=== PATIENT | female | born 1970 | race Caucasian/White ===

== ENCOUNTER 2024-02-04 14:22 | Outpatient (AMB) | payer BC, SELFPAY ==
--- NOTE | 2024-02-04 14:28 | MHC.PC.OV ---
Vital Signs 02/04/24 14:37 Height 5 ft 4.57 in Weight 167 lb BMI 28.2 BP 110/58 L Blood Pressure Location Rt brachial Position Sitting Pulse 100 Pulse Source Pulse Oximeter Pulse Oximetry (%) 95 Oxygen Delivery Method Room Air Intake Visit Reasons: tiffany from [facility] Intake Note: New patient visit [employer] Consultant Required: No Allergies No Known Allergies Allergy (Verified 01/19/24 13:40) Tobacco use date assessed: 02/04/24 Dental Screening Dental Screen Date: 02/04/24 Did you have a dental visit in the last 12 months?: Yes Did you have a dental problem in the last 6 months where you did not have access to dental care?: No Was dental information given to patient?: Patient has dentist HPI tiffany from [facility] HPI Details Patient is a 53-year-old female who presents today to critical access hospital care. She is transferring from [facility]. She has a significant past medical history of hypothyroidism s/p thyroidectomy 2001 for multifocal papillary carcinoma and [facility], rheumatoid factor positive and osteoarthritis CV: Blood pressure today in the office is 110/58. Endo: On levothyroxine 175 mcg. Last TSH was WNL. Followed by endo. Last checked in October. Rheum: has OA and RA and tried arthritis treatment and felt like it was not a thorough exam. She started with joint pains 2 years ago and states it is mostly in fingers (right thumb and middle finger trigger often), wrist pain and knee pain. No obvious joint swelling or erythema. This was a gradual onset, no immunizations, illness or travel exposure prior. Her second cousin and maternal aunt has RA. Psych: phq9 is a 4. denies any depression or anxiety. Derm: sees [facility] Bowl Attendant: She is scheduled for a total hysterectomy in [place]. Her uterus is thickened and right ovary large cyst/polyp per pt but not cancerous. Mammogram: 06/29/2023 Colonoscopy: overdue Bone density: overdue [facility] Medical History (Updated 02/04/24 @ 15:08 by Esther Elise PA-C) Basal cell carcinoma Right knee pain Iron deficiency anemia Hypothyroid Skin cancer Surgical History (Updated 01/19/24 @ 13:35 by Tracey Sagastume MA) History of thyroidectomy S/P skin biopsy Family History (Updated 02/04/24 @ 14:43 by Soco Hylton CMA) Mother Hypertension Father Hypertension Maternal Grandmother Cancer Paternal Grandfather Cancer Sister Multiple sclerosis Social History (Updated 01/19/24 @ 13:42 by Tracey Sagastume MA) Housing: House Alcohol intake: current Alcohol intake frequency: a few times a week Patient Tobacco Use Status: Former Tobacco user Tobacco use type: Cigarette Years Smoked: 30 e-Cigarette/Vaping Use: Former Use Frequency of e-Cigarette/Vaping Use: 1/4 cartridge a day service: No Current occupational status: employed 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 1. Little interest or pleasure in doing things: nearly every day 2. Feeling down, depressed, or hopeless: not at all 3. Trouble falling or staying asleep, or sleeping too much: not at all 4. Feeling tired or having little energy: several days 5. Poor appetite or overeating: not at all 6. Feeling bad about yourself - or that you are a failure or have let yourself or your family down: not at all 7. Trouble concentrating on things, such as reading the newspaper or watching television: not at all 8. Moving or speaking so slowly that other people could have noticed. Or the opposite - being so fidgety or restless that you have been moving around a lot more than usual: not at all 9. Thoughts that you would be better off or of hurting yourself in some way: not at all Total score: 4 Depression Screening Interpretation: Negative Depression Screening Done: Yes 32953 - PHQ-9 Billing: Yes Source: Developed by Drs. Mauro De La Rosa, Gabrielle Andrade, Osmar Kurtz and colleagues, with an educational savannah from [employer]. Thrive Questionnaire Date Thrive assessed: 02/04/24 I am a: Patient What is your living situation today?: I have a steady place to live Within the past 12 months, did the food you bought not last and you didn't have the money to get more?: Never true Within the past 12 months, did you worry whether your food would run out before you got money to buy more?: Never true Do you have trouble paying for medicines?: No Do you have trouble getting transportation to medical appointments?: No Do you have trouble paying your heating and electricity bill?: No Do you have trouble taking care of your child, family member or friend?: No Do you have trouble with day-to-day activities such as bathing, preparing meals, shopping, managing finances, etc.?: No Are you currently unemployed and looking for a job?: No Are you interested in more education?: No Please select the resources that you would like help with: None Currently or been in a relationship where the following occur: No concerns reported THRIVE Score: 0 AUDIT C Alcohol Use Questionnaire (AUDIT-C) 1. How often do you have a drink containing alcohol?: 2-3 times a week 2. How many drinks containing alcohol do you have on a typical day when you are drinking?: 1 or 2 3. How often do you have six or more drinks on one occasion?: Less than monthly Total Score: 4 YOLIS-7 AMB Questionnaire YOLIS-7 Date YOLIS - 7 assessed: 02/04/24 Feeling nervous, anxious, or on edge: 0 = Not at all Not being able to stop or control worryin = Not at all Worrying too much about different things: 0 = Not at all Trouble relaxin = Not at all Being so restless that it is hard to sit still: 0 = Not at all Becoming easily annoyed or irritable: 0 = Not at all Feeling afraid as if something awful might happen: 0 = Not at all Total YOLIS-7 score (0-4 normal; 5-9 mild; 10-14 moderate; 15-21 severe): 0 Source: Developed by Drs. Mauro De La Rosa, Gabrielle Andrade, Osmar Kurtz and colleagues, with an educational savannah from [employer]. YOLIS-7 Assessment Billing YOLIS-7 Assessment Tool: YOLIS-7 Assessment 97685 Physical exam (Primary Care) Vital Signs: Last Vital Signs Pulse 100 02/04/24 14:37 BP 110/58 L 02/04/24 14:37 Pulse Ox 95 02/04/24 14:37 Oxygen Delivery Method Room Air 02/04/24 14:37 BMI result Body Mass Index 28.2 Tobacco/Smoking Status: Tobacco use Status Tobacco use date assessed 02/04/24 02/04/24 14:32 Patient Tobacco Use Status Former Tobacco user 02/04/24 14:32 Tobacco use type Cigarette 02/04/24 14:32 e-Cigarette/Vaping Use Former Use 02/04/24 14:32 PHQ-9: PHQ-9 Score PHQ-9: Total score 4 02/04/24 14:42 Depression Screening Interpretation: Negative Thrive Assessment: Date of Thrive Assessment Date Thrive assessed 02/04/24 02/04/24 14:32 Currently or been in a relationship where the following occur: No concerns reported Const Orientation/consciousness: patient oriented x3 HENMT Ears: hearing grossly normal bilaterally Neck Thyroid: Thyroid normal Lymphatic: no lymphadenopathy noted Resp Auscultation: clear to auscultation bilaterally Cardio Rate: regular rate Rhythm: regular rhythm Heart sounds: S1 normal heart sound present and S2 normal heart sound present GI Inspection: Yes normal to inspection Palpation (GI): Soft to palpation and Other GI palpation findings present (nontender, no cva tenderness) Auscultation: normoactive bowel sounds Rectal Exam - Female: deferred Skin General skin exam: no rashes or lesions noted Neuro General: patient oriented x3, gait normal and no focal motor deficits Assessment and Plan Assessment & Plan (1) Basal cell carcinoma: Code(s): C44.91 - Basal cell carcinoma of skin, unspecified Qualifiers: Basal cell carcinoma location: unspecified site Qualified Code(s): C44.91 - Basal cell carcinoma of skin, unspecified Plan: follows with [facility] (2) Hypothyroidism associated with surgical procedure: Code(s): E89.0 - Postprocedural hypothyroidism Plan: follows endo (3) Polyarthralgia: Code(s): M25.50 - Pain in unspecified joint Plan: referral to rheum labs ordered (4) Rheumatoid factor positive: Code(s): R76.8 - Other specified abnormal immunological findings in serum Plan: will recheck Plan Bone density ordered. Colonoscopy ordered. Orders: Orders XR DEXA axial skeleton Today Z78.0 - Asymptomatic menopausal state Comprehensive [place]. Panel Fast Today C44.91 - Basal cell carcinoma of skin, unspecified, E89.0 - Postprocedural hypothyroidism, M25.50 - Pain in unspecified joint, R76.8 - Other specified abnormal immunological findings in serum Lipid Panel Today C44.91 - Basal cell carcinoma of skin, unspecified, E89.0 - Postprocedural hypothyroidism, M25.50 - Pain in unspecified joint, R76.8 - Other specified abnormal immunological findings in serum Rheumatoid Factor Today C44.91 - Basal cell carcinoma of skin, unspecified, E89.0 - Postprocedural hypothyroidism, M25.50 - Pain in unspecified joint, R76.8 - Other specified abnormal immunological findings in serum C Reactive Protein Today C44.91 - Basal cell carcinoma of skin, unspecified, E89.0 - Postprocedural hypothyroidism, M25.50 - Pain in unspecified joint, R76.8 - Other specified abnormal immunological findings in serum Erythrocyte Sedimentation Rate Today C44.91 - Basal cell carcinoma of skin, unspecified, E89.0 - Postprocedural hypothyroidism, M25.50 - Pain in unspecified joint, R76.8 - Other specified abnormal immunological findings in serum Complete Blood Count Auto Diff Today C44.91 - Basal cell carcinoma of skin, unspecified, E89.0 - Postprocedural hypothyroidism, M25.50 - Pain in unspecified joint, R76.8 - Other specified abnormal immunological findings in serum Referrals Open Access Screening Colonoscopy Referral Z12.11 - Encounter for screening for malignant neoplasm of colon Rheumatology Referral M25.50 - Pain in unspecified joint, R76.8 - Other specified abnormal immunological findings in serum Coding Level of Care Code New Pt Level 4 (74678) Complex EM visit Add On G2211 Diagnoses Basal cell carcinoma (BCC), unspecified site C44.91 Basal cell carcinoma location: unspecified site Hypothyroidism associated with surgical procedure E89.0 Polyarthralgia M25.50 Rheumatoid factor positive R76.8 Additional Codes YOLIS-7 Assessment Billing - YOLIS-7 Assessment Tool: YOLIS-7 Assessment [id number] ([id number])
[2024-02-04 14:37] VITALS: BP 110/58; PULSE 100; O2SAT 95; BMI 28.2
== END 2024-02-04 15:14 | disposition home or self-care (01) ==
PROVIDERS: Visit Provider Physician Assistant
DX: C44.91 Basal cell carcinoma of skin, unspecified (principal); E89.0 Postprocedural hypothyroidism; M25.50 Pain in unspecified joint; R76.8 Other specified abnormal immunological findings in serum
CPT/HCPCS: 99204

== ENCOUNTER 2024-02-12 07:35 | Outpatient (REF) | payer BC, SELFPAY ==
[2024-02-12 11:20] LABS: MANUAL DIFF FLAG NO
[2024-02-12 11:38] LABS: Basophils Percent Auto 0.5 % (0-2); Eosinophils Absolute Auto 0.2 X10*3/uL (0.0-0.4); Eosinophils Percent Auto 2.9 % (0-4); Hematocrit 47.8 % (37.0-47.0); Hemoglobin 15.8 g/dl (12.0-16.0); Imm Gran Abs Auto 0.01 X10*3/uL (0.00-0.03); Imm Gran Pct Auto 0.2 % (0.0-0.4); Lymphocytes Absolute Auto 2.5 X10*3/uL (1.2-4.9); Lymphocytes Percent Auto 40.8 % (20-40); Mean Corpuscular HGB Conc 33.1 g/dl (31.0-35.0); Mean Corpuscular Hemoglobin 29.5 pg (27.0-33.0); Mean Corpuscular Volume 89.3 fL (80.0-98.0); Mean Platelet Volume 10.9 fL (9.4-12.3); Monocytes Absolute Auto 0.5 X10*3/uL (0.1-1.2); Monocytes Percent Auto 8.3 % (2-11); Neutrophils Absolute Auto 2.9 x10*3/uL (2.0-8.3); Neutrophils Percent Auto 47.3 % (45-73); Platelet Count 251 X10*3/uL (160-400); Red Blood Count 5.35 X10*6/uL (4.20-5.50); White Blood Count 6.1 X10*3/uL (4.8-10.8)
[2024-02-12 11:48] LABS: Rheumatoid Factor 20.8 IU/mL (<15.0)
[2024-02-12 11:57] LABS: Alanine Aminotransferase 30 U/L (0-31); Alkaline Phosphatase 63 U/L (39-117); Anion Gap 11 (12-20); Aspartate Amino Transferase 27 U/L (5-31); Bilirubin Total 0.4 mg/dL (0.0-1.0); Blood Urea Nitrogen 11 mg/dL (9-16); C Reactive Protein 0.24 mg/dL (< or = 0.50); Calcium 9.1 mg/dL (8.4-10.2); Carbon Dioxide 24 mmol/L (22-29); Chloride 109 mmol/L (96-108); Cholesterol 169 mg/dL (<200); Estimated Glomerular Filt Rate > 60; Glucose Fasting 92 mg/dL (60-99); HDL Cholesterol 33 mg/dL (>40); LDL Cholesterol Calculated 100 mg/dL (<100); Potassium 4.3 mmol/L (3.3-5.1); Sodium 140 mmol/L (135-145); Total Protein 7.4 g/dL (6.5-8.0); Triglycerides 184 mg/dL (<150)
[2024-02-12 12:19] LABS: Erythrocyte Sedimentation Rate 12 MM/HR (0-20)
== END 2024-02-12 07:36 | disposition home or self-care (01) ==
LOC: HO.WFDLDS 07:35
PROVIDERS: Visit Provider Physician Assistant
DX: C44.91 Basal cell carcinoma of skin, unspecified (principal); E89.0 Postprocedural hypothyroidism; M25.50 Pain in unspecified joint; R76.8 Other specified abnormal immunological findings in serum
CPT/HCPCS: 36415; 80053; 80061; 85025; 85652; 86140; 86431

== ENCOUNTER 2024-03-03 07:54 | Outpatient (REF) | payer BC, SELFPAY ==
--- NOTE | ~2024-03-03 | MM_ITS ---
EXAMINATION: BONE DENSITOMETRY CLINICAL INDICATION: Asymptomatic menopausal state. COMPARISON: This is the patient's baseline examination. TECHNIQUE: Using a Cisco DXA System (software version: 13.1) manufactured by [employer], dual-energy x-ray absorptiometry was performed of the lumbar spine and left hip. The images are of good technical quality. Summary results are attached. FINDINGS: LEFT FEMUR, NECK: BMD 0.880 g/cm2, Z-score -0.4, T-score -1.1, osteopenia. LEFT FEMUR, TOTAL: BMD 0.958 g/cm2, Z-score 0.0, T-score -0.4, normal. AP SPINE L1-L4: BMD 1.138 g/cm2, Z-score 0.0, T-score -0.3, normal. IDENTIFIED RISK FACTORS: Menopause, low calcium intake, current smoker. HISTORY OF FRACTURE: None listed. MEDICATIONS: None listed. MM/XR DEXA axial skeleton IMPRESSION: 1. DIAGNOSIS: Osteopenia based on the lowest T-score value of -1.1 in the femoral neck applying World Health Organization criteria. 2. 10-YEAR FRACTURE RISK PREDICTION, FRAX: Major osteoporotic fracture (clinical spine, forearm, hip or shoulder) 4.8%. Hip fracture 0.5%. 3. Treatment Recommendations: NOF guidelines recommend consideration for treatment in postmenopausal women and men age 50 and older presenting with the following: -A hip or vertebral (clinical or morphometric) fracture. -T-score less than or equal to -2.5 at the femoral neck or spine after appropriate evaluation to exclude secondary causes. -Low bone mass at the hip or spine and a 10-year fracture probability by FRAX of greater than or equal to 3% for hip fracture or greater than or equal to 20% for major osteoporotic fracture based on the [place] adapted WHO algorithm. 4. Other Recommendations: All treatment decisions require clinical judgment and consideration of individual patient factors, including patient preferences, comorbidities, previous drug use, risk factors not captured in the FRAX model (e.g. frailty, falls, vitamin D deficiency, increased bone turnover, interval significant decline in bone density) and possible under or overestimation of fracture risk by FRAX. Additional medical evaluation for secondary cause of low bone mineral density may be appropriate. FUTURE SCAN RECOMMENDATION: People with diagnosed cases of osteoporosis or at high risk for fracture should have regular bone mineral density tests. For patients eligible for Medicare, routine testing is allowed once every 2 years. The testing frequency can be increased to one year for patients who have rapidly progressing disease, those who are receiving or discontinuing medical therapy to restore bone mass, or have additional risk factors. Electronically signed by: Giorgi Bowles MD 03/04/2024 09:33 AM EDT
== END 2024-03-03 07:55 | disposition home or self-care (01) ==
LOC: HO.MAMMO 07:54
PROVIDERS: PCP Internal Medicine; Visit Provider Physician Assistant
DX: Z13.820 Encounter for screening for osteoporosis (principal); Z78.0 Asymptomatic menopausal state
CPT/HCPCS: 77080

== ENCOUNTER 2024-04-25 11:59 | Outpatient (REF) | payer BC, SELFPAY ==
[2024-04-25 15:46] LABS: Anion Gap 15 (12-20); Blood Urea Nitrogen 18 mg/dL (9-16); Calcium 9.8 mg/dL (8.4-10.2); Carbon Dioxide 24 mmol/L (22-29); Chloride 105 mmol/L (96-108); Estimated Glomerular Filt Rate > 60; Glucose Random 118 mg/dL (60-115); Potassium 3.8 mmol/L (3.3-5.1); Sodium 140 mmol/L (135-145)
== END 2024-04-25 12:00 | disposition home or self-care (01) ==
LOC: HO.WFDLDS 11:59
PROVIDERS: Visit Provider Internal Medicine
DX: I42.8 Other cardiomyopathies (principal)
CPT/HCPCS: 36415; 80048

== ENCOUNTER 2024-05-24 11:02 | Outpatient (AMB) | payer BC, SELFPAY ==
--- OUTSIDE RECORDS SUMMARY | 2024-05-24 11:05 | XMS_ITS | Data Portability ---
Author Organization [place] - [facility],, ROSLYN BRANDON MD Address [address] [place] [phone] Care Team Providers Care Biotechnician Name Role Phone ElaFUNK JOHN Primary Care Provider [phone] Assessment No assessment recorded. Plan of Treatment Reminders Order Date Submit Date Provider Last Modified By Organization Details Last Modified Time Details Appointments None recorded. Lab cytology report, thin prep, smear or scraping, cervical or vaginal 2023 024 [facility], [address] [place], [address], 4 12:07:00 estradiol, serum 2023 024 [employer] [facility], [address] [place], [address], 4 10:06:38 FSH (follicle- stimulatin g hormone), serum 2023 024 [facility], [address] [place], [address], 4 10:06:40 hemoglobin , gastrointe stinal, stool 2023 024 [email or web address] 1 In-Office Order, Internal Use Only DO Not Attach Compendium DO Not Attach Compendium, Do Not Delete/merge, [id number] 4 13:33:18 ca 125, serum 2023 024 [facility], [address] [place], [address], 4 08:09:06 estradiol, serum 2023 024 [facility], [address] [place], [address], 4 08:09:06 anti-mulle melodie hormone (amh), serum 2023 024 [facility], [address] [place], [address], 4 08:09:07 inhibin A + B panel, serum or plasma 2023 024 [facility], [address] [place], [address], 4 16:06:44 biopsy, endometria l 2023 024 [facility], [address] [place], [address], 4 07:34:58 test, urine 2023 024 [email or web address] 1 In-Office Order, Internal Use Only DO Not Attach Compendium DO Not Attach Compendium, Do Not Delete/merge, [id number] 4 09:56:11 Referral gynecologi c surgery referral - 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 Imaging MAMMO, screening, digital, bilateral - Breast Aspiration and/or Biopsy if needed 2023 024 sharad [facility], [address], [address], [place], [address], 14:20:33 MRI, pelvis, w/ contrast - hypoechoic enlargemen t of right ovary, question possible fibroma, also has post menopausal bleeding and thickened endometriu m [email or web address] [facility] ([facility]), [address], [place], [address], 07:35:14 Medication Orders None recorded. Patient TargetsNo targets recorded. Patient Instructions Encounter Date Encounter Id Patient Instructions Last Modified By Organization Details Last Modified Time 09/07/2023 [id number] learning about healthy weight Not available 09/07/2023 13:13:23 vaginal bleeding after menopause: care instructions Not available 09/07/2023 13:13:40 She is here as a new patient for routine annual. 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 She had her last menses more than 2 years ago, however last week she began moderately red vaginal bleeding that lasted 7 days, now resolved. 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 with Dr. Pham. On exam: cervix nearly flush with apex and lateral jerome, appears to have had cone prior Pap taken, she is advised ot get annual pap due to prior history of HSIL, this was explained in detail. Check FSH and estradiol to see if this was The Last Hurrah or abnormal, PMB. If in menopause range will need sono and emb. She has developed increased urinary stress incontinence over the past year, we discussed possible addtion of vaginal estradiol, she will do a telehealth for this if she is interested. She appears to be doing well. Monthly self breast exam was taught, and stressed, and is advised to call if she discovers any new mass in the breast. Not available 09/07/2023 13:53:01 10/13/2023 [id number] vaginal bleeding after menopause: care instructions Not available 10/13/2023 08:23:31 She is here for discussion of her recent pelvic sonogram. She was here as a new patient last month, and had PMB. Sono shows a 1.1 cm endometrial thickness, and also a 4.2 cm, hypoechoic enlargement of the right ovary. The two may be related, as she may have an estrogen secreting ovarian tumor, such as a granulosa cell tumor, or it could be a benign fibroma. On 09/08/23 her FSH was 41.7, and serum estradiol 63.1. Note from 09/07/23: She is here as a new patient for routine annual. 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 She had her last menses more than 2 years ago, however last week she began moderately red vaginal bleeding that lasted 7 days, now resolved. 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 with Dr. Pham. On exam: cervix nearly flush with apex and lateral jerome, appears to have had cone prior Pap taken, she is advised ot get annual pap due to prior history of HSIL, this was explained in detail. Check FSH and estradiol to see if this was The Last Hurrah or abnormal, PMB. If in menopause range will need sono and emb. She has developed increased urinary stress incontinence over the past year, we discussed possible addtion of vaginal estradiol, she will do a telehealth for this if she is interested. __ The radiologist recommended a contrast enhanced MRI of the pelvis, this is ordered. We will have her return for emb to assess the endometrium. Will check estradiol to see if trending upward, and also check serum inhibin and and b, CA 125, and AMH. We had a long discussion about all this. It could be the two are unrelated, or the ovary could be making a hormone that is causing the endometrial thickening. She may need surgery for removal of the ovary but first we should get more information about the endometrium and the ovary. She agrees to return for emb and to do the MRI then we will reassess and discuss if surgery appears necessary and if so should she see a regular pet crematory worker, or a pet crematory worker onc. Face to face discussion 30 minutes laura Not available 10/13/2023 08:39:44 10/20/2023 [id number] postmenopausal bleeding information [email or web address] Not available 10/20/2023 09:54:56 endometrial biopsy: about this test [email or web address] Not available 10/20/2023 09:54:57 She is here for emb for pmb. Serum estradiol was 63 then 60 a month apart, so not rising, but is elevated when compared to the FSH which is in the menopausal range. This may be edward-menopause, or could be related to the ovarian enlargement. AMH < 0.03. CA 125 was 13, FSH was 41.7. She is already ordered to have a pelvic MRI. Note from 10/13/23: She is here for discussion of her recent pelvic sonogram. She was here as a new patient last month, and had PMB. Sono shows a 1.1 cm endometrial thickness, and also a 4.2 cm, hypoechoic enlargement of the right ovary. The two may be related, as she may have an estrogen secreting ovarian tumor, such as a granulosa cell tumor, or it could be a benign fibroma. On 09/08/23 her FSH was 41.7, and serum estradiol 63.1. Note from 09/07/23: She is here as a new patient for routine annual. 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 She had her last menses more than 2 years ago, however last week she began moderately red vaginal bleeding that lasted 7 days, now resolved. 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 with Dr. Pham. On exam: cervix nearly flush with apex and lateral jerome, appears to have had cone prior Pap taken, she is advised ot get annual pap due to prior history of HSIL, this was explained in detail. Check FSH and estradiol to see if this was The Last Hurrah or abnormal, PMB. If in menopause range will need sono and emb. She has developed increased urinary stress incontinence over the past year, we discussed possible addtion of vaginal estradiol, she will do a telehealth for this if she is interested. She tolerated emb well, await results. When MRI results are back, then we can decide how best to address the enlarged ovary. We may decide to repeat sono in 3 months if stable. 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 This correlates with the pelvic sonogram and pelvic exam. She has noted a year of worsening low back ache and dyspareunia, she has bene unable to have intercourse for 10 to 12 months due to the dyspareunia. It is deep dyspareunia, not vaginal. She had noted PMB, emb removed portions of a benign polyp. She also notes increased urinary stress incontinence over the past year. Note from 09/07/23: She is here as a new patient for routine annual. 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 She had her last menses more than 2 years ago, however last week she began moderately red vaginal bleeding that lasted 7 days, now resolved. 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 with Dr. Pham. On exam: cervix nearly flush with apex and lateral jerome, appears to have had cone prior Pap taken, she is advised ot get annual pap due to prior history of HSIL, this was explained in detail. Check FSH and estradiol to see if this was The Last Hurrah or abnormal, PMB. If in menopause range will need sono and emb. She has developed increased urinary stress incontinence over the past year, we discussed possible addtion of vaginal estradiol, she will do a telehealth for this if she is interested. We discussed all this.We discussed the likely fibroma/Kenroy tumor diagnosis of the ovarian mass, but cannot rule out pre-malignant or malignant entirely until after surgery. After discussion she elects to be referred to surgery. We discussed possible right oophorectomy with or without salpingectomy, or BSO, and possible hysterectomy. After discussion of risks of surgery including , hemorrhage, infection, etc, she prefers to have hysterectomy with BSO, and she would like to see if she can become sexually active again, if the pain resolves. We discussed the difference in surgery and recovery with all these options. She may need a work up for her stress incontinence prior, she understands. She will discuss all these options with her new surgeon. 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 REACT EDU CELLU LAR HURTADO ES AND/O R REPAI R ARE PRESE NT. Not Available [address], [address], 09/11/2023 12:06:59 09/07/19 24 09/11/2023 IGP, RFX APTIM A HPV ASCU specimen adequacy: Commen t Satis facto ry for evalu ation . Endoc ervic al and/o r squam ous metap lasti c cells (endo cervi tha compo nent) are prese nt. Not Available [address], [address], 09/11/2023 12:06:59 09/07/19 24 09/11/2023 IGP, RFX APTIM A HPV ASCU clinician provided ICD10: Zaira t Z01.4 19 N95.0 Not Available [address], [address], 09/11/2023 12:06:59 09/07/19 24 09/11/2023 IGP, RFX APTIM A HPV ASCU performed by: Zaira Hooper il, Cytot echno logis t (ASCP ) Not Available [address], [address], 09/11/2023 12:06:59 09/07/19 24 09/11/2023 IGP, RFX APTIM A HPV ASCU electronical ly signed by: Zaira rios MD, Patho logis t Not Available [address], [address], 09/11/2023 12:06:59 09/07/19 24 09/11/2023 IGP, RFX APTIM A HPV ASCU . . Not Available [address], [address], 09/11/2023 12:06:59 09/07/19 24 09/11/2023 IGP, RFX APTIM A HPV ASCU note: Zaira manning The Pap smear is a scree basim test desig ulises to aid in the detec tion of calli ligna nt and malig nant condi tions of the uteri ne cervi x. It is not a diagn ostic proce dure and shoul d not be used as the sole means of detec ting cervi tha cance r. Both false -posi tive and false -nega tive repor ts do occur . Not Available [address], [address], 09/11/2023 12:06:59 09/07/19 24 09/11/2023 IGP, RFX APTIM A HPV ASCU test methodology: Zaira manning This liqui d based ThinP rep(R ) pap test was scree ulises with the use of an image guide rupal armijo. Not Available [address], [address], 09/11/2023 12:06:59 09/07/19 24 09/11/2023 IGP, RFX APTIM A HPV ASCU . Commen t The HPV DNA refle x crite tanika were not met with this speci men resul t there fore, no HPV testi ng was perfo rmed. Not Available [address], [address], 09/11/2023 12:06:59 09/07/19 24 09/07/2023 hemog lobin , gastr ointe mariano l, stool Occult Blood negati ve Not Available In-Office Order Internal Use Only DO Not Attach Compendium DO Not Attach Compendium, Do Not Delete/merge, [id number] 09/07/2023 11:08:14 09/08/19 24 09/09/2023 ESTRA DIOL estradiol 63.1 pg/mL Adult Femal e Range Folli cular phase 12.5 - 166.0 Ovula tion phase 85.8 - 498.0 Lutea l phase 43.8 - 211.0 Postm enopa usal <6.0 - 54.7 Pregn delilah 1st trime ster 215.0 - >4300 .0 Amor ECLIA metho dolog y Not Available [facility] ([facility]) [address] [facility], [place], [address], 09/09/2023 10:06:38 09/08/19 24 09/09/2023 FSH FSH 41.7 mIU/m L Adult Femal e Range Folli cular phase 3.5 - 12.5 Ovula tion phase 4.7 - 21.5 Lutea l phase 1.7 - 7.7 Postm enopa usal 25.8 - 134.8 Not Available [facility] ([facility]) [address] [facility], [place], [address], 09/09/2023 10:06:40 10/14/19 24 10/15/2023 CANCE R ANTIG EN (CA) 125 cancer antigen (Ca) 125 13.1 U/mL 0.0-38 .1 Amor Diagn ostic s Elect amor milum inesc ence Immun oassa y (ECLI A) Value s obtai ulises with diffe rent assay metho ds or kits canno t be used inter hurtado eably . Resul ts canno t be inter prete d as absol northway evide nce of the prese nce or absen ce of jennifer neumann se. Not Available [facility] ([facility]) [address] [facility], [place], [address], 10/15/2023 08:09:05 10/14/19 24 10/15/2023 ESTRA DIOL estradiol 60.1 pg/mL Adult Femal e Range Folli cular phase 12.5 - 166.0 Ovula tion phase 85.8 - 498.0 Lutea l phase 43.8 - 211.0 Postm enopa usal <6.0 - 54.7 Pregn delilah 1st trime ster 215.0 - >4300 .0 Amor ECLIA metho dolog y Not Available [facility] ([facility]) [address] [facility], [place], [address], 10/15/2023 08:09:06 10/14/19 24 10/15/2023 ANTI- MULLE MELODIE HORMO NE anti-mulleri an hormone <0.03 NG/mL Age Range 0 - 19 years Not Estab lishe d 20 - 24 years 1.22 - 11.70 25 - 29 years 0.89 - 9.85 30 - 34 years 0.58 - 8.13 35 - 39 years 0.15 - 7.49 40 - 44 years 0.03 - 5.47 >44 years Not Estab lishe d Amor Diagn ostic s Elect amor milum inesc ence Immun oassa y (ECLI A) value s obtai ulsies with diffe rent assay metho ds or kits canno t be used inter hurtado eably . Age-d epend ent refer ence inter vals were estab lishe d for AMH in a [place] popul ation of appar ent healt hy femal es, aged 20-44 years . The range s given are for infor matio n only and may vary from other publi shed data. [1] 1. Amor gissel (R) Elecs ys [facility] Packa ge Inser t, Amor Diagn ostic s, Sarah napol is, [place]. Not Available [facility] ([facility]) [address] [facility], [place], [address], 10/15/2023 08:09:07 10/14/19 24 10/20/2023 INHIB IN A+B inhibin A, ultrasensiti ve 1.8 pg/mL Menst rual Phase Early Folli cular <34.0 Late Folli cular <99.0 Perio vulat ory 8.0-2 33.0 MidLu teal <145. 0 End Lutea l <145. 0 Postm enopa usal <4.0 Inhib in A perfo rmed by Elana López er Acces s Autom ated Immun oassa y metho dolog y. Value s obtai ulises with diffe rent assay metho ds or kits canno t be used inter [facility] . Not Available [facility] ([facility]) [address] [facility], [place], [address], 10/22/2023 16:06:44 10/14/19 24 10/22/2023 INHIB IN A+B inhibin B <7.0 pg/mL Early Folli cular <261. 0 Late Folli cular <286. 0 Perio vulat ory <189. 0 MidLu teal <164. 0 End Lutea l <107. 0 Post Menop ausal < 17.0 Inhib in B perfo rmed by Brandon Sauceda( ) Enzym e Linke d Immun oassa y metho dolog y. Value s obtai ulises with diffe rent assay metho ds or kits canno t be used inter [facility] . Not Available [facility] ([facility]) [address] [facility], [place], [address], 10/22/2023 16:06:44 10/20/19 24 10/20/2023 [facility] SURGI THA PATHO LOGY results Patijulita nt Name: AIDE MILLS Lab Acces branden #: [id number] Cody nt : 1969 (Age: 53) Colle ction Date: 2023 Acces branden Date: 2023 Sign Out Date: 024 Tissu e Sourc e: 1:EMB Final Diagn osis: Endom etriu m, biops y: - Polyp oid fragm ents of inact edu endom etriu m with focal eosin ophil ic hurtado e and cilia christiano epith elial hurtado e (tuba l metap lasia ), see note. - No endom etria l hyper plasi a or carci noma is seen. Note: Polyp oid tissu e fragm ents may repre sent super ficia l porti ons of an endom etria l polyp if clini coy estefany tible . Prima ry Patho logis t:Carl Holland M.D. elect brayan soliman roni d out by: Vinnie Holland M.D. / [facility] Clini tha Histo ry: 53-ye ar-ol d femal e, postm enopa usal bleed ing Gross Descr iptio n: Label ed endo metri al biops y . Recei eve in forma diogo is a 1.0 x 1.0 x 0.3 [address] of hemor rhagi c soft tissu e. The forma diogo is filte red and the speci men is submi tted in toto in 1 casse tte, multi ple piece s, x 2. (KD)* As of August 01, 2023, the speci men proce ssing and stain ing is perfo rmed at [facility] , [address] [place] (CLIA #[id number]). Its perfo rmanc e joshua cteri stics deter mined by [facility]. Bladimir Holder M.D. [facility] al D[facility] tor of Surgi tha Patho Robson orr M.D. Medic al Direc tor Cytop athol ogy Phone #: [phone], On-Ca ll Patho logis t: [id number] Not Available [facility] [address] [place], [address], 10/26/2023 14:23:54 10/20/19 24 10/20/2023 pregn delilah test, urine HCG negati ve Not Available In-Office Order Internal Use Only DO Not Attach Compendium DO Not Attach Compendium, Do Not Delete/merge, [id number] 10/20/2023 09:56:02 10/06/19 24 10/05/2023 US, pelvi s, trans abdom inal + trans vagin al No observ ation record ed. [email or web address] Not Available 2023 08:52:43 10/30/19 24 10/29/2023 MRI, pelvi s, w/ contr ast No observ ation record ed. [facility] [address] [facility], [place], [address], 11/04/2023 10:15:35 Result Notes None recorded. Problems Name Problem SNOMED Code Status Onset Date Resolution Date Notes Provider Name and Address Organization Details Recorded Time Mass of right ovary 5889453884401 9102 Active 2023 Roslyn Brandon MD [address], [place], [address], [place] - [facility], 4 11:14:14 Dyspareunia 03416942 Active 2023 Roslyn Brandon MD [address], [place], [address], [place] [facility], 4 11:14:26 Backache 980567497 Active 2023 oRslyn Brandon MD [address], [place], [address], [place] [facility], 4 11:14:33 Genuine stress incontinenc e 51190176 Active 2023 Roslyn Brandon MD [address], [place], [address], [place] [facility], 4 11:14:41 Problem Notes None recorded. Procedures Surgical History Date Name Laterality Status Provider Name and Address Organization Details Recorded Time Endometrial Biopsy completed Roslyn Brandon MD [address] [facility],[address], [place], [address], [place] - [facility], 10/20/2023 09:55:35 Removal of thyroid completed ca may [place] - [facility], 09/07/2023 11:18:19 cone biopsy completed Roslyn Brandon MD [address], [place], [address], [place] [facility], 09/07/2023 13:33:08 Imaging Results Imaging Date Name Status LastModified by Organization Details LastModified Time 10/05/2023 US, pelvis, transabdominal + transvaginal completed Information not available 10/07/2023 08:52:43 10/29/2023 MRI, pelvis, w/ contrast completed [facility] [address] [place], [address], 11/04/2023 10:15:35 Procedure Notes None recorded. Medical Equipment None Reported. Allergies No known drug allergies Medications Name Sig Start Date Stop Date Status Note LastModified by Organization Details LastModified Time celecoxib 200 mg capsule TAKE 1 CAPSULE BY MOUTH DAILY 09/06 completed Not Available Not Available Not Available doxycycline hyclate 100 mg capsule TAKE 1 CAPSULE BY MOUTH TWICE DAILY WITH FOOD AND GLASS OF WATER FOR 5 DAYS 09/06 completed Not Available Not Available Not Available Levoxyl 175 mcg tablet TAKE 1 TABLET BY MOUTH EVERY DAY active Not Available Not Available No t Available hydrocodone 10 mg-acetamin ophen 325 mg tablet TAKE 1 TABLET BY MOUTH EVERY 4 TO 6 HOURS NEEDED FOR PAIN 09/06 completed Not Available Not Available Not Available mupirocin 2 % topical ointment APPLY TOPICALLY TO SURGICAL SITE TWICE DAILY FOR 14 DAYS OR UNTIL FULLY HEALED 09/06 completed Not Available Not Available Not Available itraconazol e 100 mg capsule TAKE 2 CAPSULES BY MOUTH TWICE DAILY 09/06 completed Not Available Not Available Not Available Vitals Date Recorded Body height Body mass index (BMI) Body weight Body temperature Heart rate Systolic blood pressure Diastolic blood pressure Provider Name and Address Organization Details Last Updated DateTime 4 160.02 cm 29.4 kg/m2 98941.0 5 g 98 [degF] 88 /min 160 mm[Hg] 74 mm[Hg] ca Pandey in [facility], 4 11:09:21 Date Recorded Body height Provider Name an d Address Organization Details Last Updated DateTime 09/15/2023 160.02 cm Flor arizmendi in [facility], 09/15/2023 09:49:48 Date Recorded Body height Body mass index (BMI) Body weight Body temperature Heart rate Systolic blood pressure Diastolic blood pressure Provider Name and Address Organization Details Last Updated DateTime 4 160.02 cm 29.3 kg/m2 15854.4 6 g 97.1 [degF] 95 /min 170 mm[Hg] 77 mm[Hg] Flor Pandey in [facility], 4 08:00:59 Date Recorded Body height Body mass index (BMI) Body weight Heart rate Body temperature Systolic blood pressure Diastolic blood pressure Provider Name and Address Organization Details Last Updated DateTime 4 160.02 cm 29.2 kg/m2 83459.3 g 84 /min 97.2 [degF] 147 mm[Hg] 71 mm[Hg] Flor Pandey in [facility], 4 09:06:06 Date Recorded Body height Body mass index (BMI) Body weight Heart rate Systolic blood pressure Diastolic blood pressure Provider Name and Address Organization Details Last Updated DateTime 4 160.02 cm 29.1 kg/m2 12691.1 5 g 79 /min 151 mm[Hg] 71 mm[Hg] ca Pandey in [facility], 4 09:29:36 Social History Question Answer Notes LastModified by Organizat ion Details LastModified Time Tobacco Smoking Status Former Smoker [place] flores in [facility], 09/07/2023 11:16:21 What Is Your Level Of Alcohol Consumption? Occasional Information not available 09/07/2023 How Many Years Have You Consumed Alcohol? 35 Information not available 09/07/2023 What Is Your Level Of Caffeine Consumption? Moderate Information not available 09/07/2023 In The 14 Days Before Symptom Onset, Have You Had Close Contact With A Laboratory-confir med COVID-19 While That Case Was Ill? No Information not available 10/13/2023 In The 14 Days Before Symptom Onset, Have You Had Close Contact With A Person Who Is Under Investigation For COVID-19 While That Person Was Ill? No Information not available 10/13/2023 Have You Been To An Area Known To Be High Risk For COVID-19? No Information not available 10/13/2023 Are You Currently Employed? Yes Information not available 09/07/2023 Do You Or Have You Ever Used E-cigarettes Or Vape? Current User Of Electronic Cigarettes Information not available 09/07/2023 What Is The Highest Grade Or Level Of School You Have Completed Or The Highest Degree You Have Received? [id number] Information not available 09/07/2023 Who Is Your Employer? 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 Yes Information not available 09/07/2023 To Which Gender Do You Self-identify? Female Information not available 09/07/2023 What Was The Date Of Your Most Recent Tobacco Screening? 09/07/2023 Information not available 09/07/2023 What Is Your Relationship Status? Other Engaged Information not available 09/07/2023 Are You Sexually Active? Yes Information not available 09/07/2023 At What Age Did You Start Smoking Tobacco? 27 Information not available 09/07/2023 Do You Feel Stressed (tense, Restless, Nervous, Or Anxious, Or Unable To Sleep At Night)? [id number] Information not available 09/07/2023 Do You Use Any Illicit Or Recreational Drugs? No Information not available 09/07/2023 How Many Years Have You Smoked Tobacco? 35 Information not available 09/07/2023 Do You Or Have You Ever Used Any Other Forms Of Tobacco Or Nicotine? Yes Information not available 09/07/2023 How Many Days In The Past Year Have You Consumed 4 Or More Drinks? 3 Information no t available 09/07/2023 Sex: Female Functional Status Question Answer Note LastModified by Organizat ion Details LastModified Time What is your exercise level? Occasional Information not available 09/07/2023 Mental Status None recorded. Family History Relationship Description Onset Age of this Age Resolved Age Notes LastModified by Organization Details LastModified Time Paternal Grandmother Malignant tumor of breast Not available 2023 11:13:52 Paternal Grandfather Malignant tumor of lung Not available 2023 11:14:04 Maternal Grandmother Malignant tumor of pharynx Not available 2023 11:14:28 Maternal Grandfather Malignant tumor of colon Not available 2023 11:14:51 Medical History Condition Response Anesthesia complications N High Blood Pressure N Candidate for MyRisk panel N Autoimmune Condition N Depression N Lung Disease N Defects or Inherited Disease N History of Ovarian Cancer N BRCA testing in past N Anxiety Disorder N Arthritis Y Infertility N History of Cancer N Endometriosis N Kidney or Bladder Problems N Thyroid Problems N GI Problems N Anemia N History of Breast Cancer N RANDAL exposure N Osteopenia N Psychiatric Illness N Diabetes N Headaches or Migraines N Asthma N Hepatitis N Heart Disease N Hypertension N Osteoporosis N Gynecological History Statement/Question Response Age at Menarche 15 Age at First Child 22 Date of LMP 08/30/2023 Obstetrics History GPAL:G 4 P 4 0 0 4 Type Value Full Term 4 Living 4 Total 4 Past Encounters Encounter ID Performer Location Encounter Start Date Encounter Closed Date Diagnosis/Indication Diagnosis SNOMED-CT Code Diagnosis ICD10 Code [id number] MD ROSLYN Mitchell MD [address] [facility] [address] [place] [address] 09/07/2023 11:02:41 09/07/2023 14:20:33 Specialized medical examination 99975082 Z01.419 Screening for malignant neoplasm of rectum 011035422 Z12.12 Screening mammography 24 190390 Z12.31 Postmenopa usal bleeding 49290911 N95.0 [id number] MD ROSLYN Mitchell MD [address] [place] [address],[facility] [place] [place] [address] 09/15/2023 09:36:13 09/15/2023 15:31:58 [id number] MD ROSLYN Mitchell MD [address] [place] [address],[facility] [place] [address] 10/13/2023 07:57:51 10/13/2023 10:20:35 Mass of right ovary 1740898271 5771101 R19.09 Postmenopa usal bleeding 78975335 N95.0 Endometrium thickened 44 1064706 R93.89 [id number] MD ROSLYN Mitchell MD [address] [place] [address],[facility] [place] [address] 10/20/2023 08:58:42 10/20/2023 12:04:56 Postmenopausal bleeding 75535158 N95.0 [id number] MD ROSLYN Mitchell MD [address] [place] [address],[facility] [place] [address] 11/04/2023 09:24:21 11/04/2023 11:55:47 Mass of right ovary [id number] 5140969 R19.09 Dyspareunia 62897519 N94 .[address] ress incontinence 00032347 N39.3 Backache 676454081 M54.9 Health Concerns Section Related Observation LastModified by Organization Detai ls LastModified Time None Recorded Concern Status LastModified by Organization Details LastModified Time None Recorded Advance Directives Directive None Recorded Payers Encounter Date Sequence Insurance Name Policy Number Policy Carrera Covered Member ID Carrera Member ID Guarantor Name 09/07/2023 1 [facility] [place] Aide Luna [id number] Aide Luna 09/15/2023 1 [facility]) Aide Luna [id number] Aide Luna 10/13/2023 1 [facility]) Aide Luna [id number] Aide Luna 10/20/2023 1 [facility] [place] Aide Luna [id number] Aide Luna 11/04/2023 1 [facility] [place] Aide Luna [id number] Aide Luna Notes Date Note Type Note Provider Name and Address Organization Details Recorded Time 09/07/2023 text/html She is here as a new patient for routine annual. 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 She had her last menses more than 2 years ago, however last week she began moderately red vaginal bleeding that lasted 7 days, now resolved. 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 with Dr. Pham. Roslyn Brandon MD [address] [facility],[address], [place], [address], [facility], 09/07/2023 13:53:23 10/13/2023 text/html She is here for discussion of her recent pelvic sonogram. She was here as a new patient last month, and had PMB. Sono shows a 1.1 cm endometrial thickness, and also a 4.2 cm, hypoechoic enlargement of the right ovary. The two may be related, as she may have an estrogen secreting ovarian tumor, such as a granulosa cell tumor, or it could be a benign fibroma. On 09/08/23 her FSH was 41.7, and serum estradiol 63.1. Note from 09/07/23: She is here as a new patient for routine annual. 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 with Dr. hPam.On exam:cervix nearly flush with apex and lateral jerome, appears to have had cone priorPap taken, she is advised ot get annual pap due to prior history of HSIL, this was explained in detail.Check FSH and estradiol to see if this was The Last Hurrah or abnormal, PMB. If in menopause range will need sono and emb.She has developed increased urinary stress incontinence over the past year, we discussed possible addtion of vaginal estradiol, she will do a telehealth for this if she is interested. Roslyn Brandon MD [address] [facility],[address], [place], [address], [place] [facility], 10/13/2023 09:07:11 10/20/2023 text/html She is here for emb for pmb. Serum estradiol was 63 then 60 a month apart, so not rising, but is elevated when compared to the FSH which is in the menopausal range. This may be edward-menopause, or could be related to the ovarian enlargement.AMH < 0.03. CA 125 was 13, FSH was 41.7. She is already ordered to have a pelvic MRI. Note from 10/13/23: She is here for discussion of her recent pelvic sonogram. She was here as a new patient last month, and had PMB. Sono shows a 1.1 cm endometrial thickness, and also a 4.2 cm, hypoechoic enlargement of the right ovary.The two may be related, as she may have an estrogen secreting ovarian tumor, such as a granulosa cell tumor, or it could be a benign fibroma.On 09/08/23 her FSH was 41.7, and serum estradiol 63.1. Note from 09/07/23: She is here as a new patient for routine annual. 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 with Dr. Pham.On exam:cervix nearly flush with apex and lateral jerome, appears to have had cone priorPap taken, she is advised ot get annual pap due to prior history of HSIL, this was explained in detail.Check FSH and estradiol to see if this was The Last Hurrah or abnormal, PMB. If in menopause range will need sono and emb.She has developed increased urinary stress incontinence over the past year, we discussed possible addtion of vaginal estradiol, she will do a telehealth for this if she is interested. Roslyn Brandon MD [address] [facility],[address], [place], [address], [place] - [facility], 10/20/2023 09:56:29 11/04/2023 text/html She is here to discuss her recent pelvic MRI which suggests 3.5 cm right ovarian fibroma. This correlates with the pelvic sonogram and pelvic exam. She has noted a year of worsening low back ache and dyspareunia, she has bene unable to have intercourse for 10 to 12 months due to the dyspareunia. It is deep dyspareunia, not vaginal. She had noted PMB, emb removed portions of a benign polyp. She also notes increased urinary stress incontinence over the past year. __ Note from 09/07/23: She is here as a new patient for routine annual. 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 with Dr. Pham.On exam:cervix nearly flush with apex and lateral jerome, appears to have had cone priorPap taken, she is advised ot get annual pap due to prior history of HSIL, this was explained in detail.Check FSH and estradiol to see if this was The Last Hurrah or abnormal, PMB. If in menopause range will need sono and emb.She has developed increased urinary stress incontinence over the past year, we discussed possible addtion of vaginal estradiol, she will do a telehealth for this if she is interested. Roslyn Brandon MD [address], [place], [address], [place] - [facility], 11/04/2023 11:19:23 OBGyn Episode No OBEpisode recorded.
--- NOTE | 2024-05-24 11:27 | A.OFFPC_ITS ---
Vital Signs 05/24/24 11:33 Height 5 ft 4.57 in Weight 154 lb BMI 26.0 BP 96/56 L Blood Pressure Location Lt brachial Position Sitting Pulse 94 Pulse Source Pulse Oximeter Pulse Oximetry (%) 98 Oxygen Delivery Method Room Air Intake Visit Reasons: Physical Intake Note: Physical Rental Coordinator Required: No Allergies No Known Allergies Allergy (Verified 01/19/24 13:40) Tobacco use date assessed: 02/04/24 Dental Screening Dental Screen Date: 02/04/24 HPI HPI Comments History of Present Illness Details Patient is a 53-year-old female with a past medical history of hypothyroidism s/p thyroidectomy 2001 for multifocal papillary carcinoma and KOCH, rheumatoid factor positive and osteoarthritis, CHF presenting for physical exam Endo: On levothyroxine 175 mcg. Last TSH was WNL. Followed by endo. Rheum: has OA and RA and tried arthritis treatment and felt like it was not a thorough exam. She started with joint pains 2 years ago and states it is mostly in fingers (right thumb and middle finger trigger often), wrist pain and knee pain. No obvious joint swelling or erythema. This was a gradual onset, no immunizations, illness or travel exposure prior. Her second cousin and maternal aunt has RA. CV: When she underwent surgery in February was found to have CHF introperatively. She completed the procedure and ten stayed in the hospital for cardiac work. Had an echocardiogram with EF at the time around 15% Continues to see cardiology - she repeat echo at the six month ghulam Archives Director: She underwent total hysterectomy in [place]. Her uterus is thickened and right ovary large cyst/polyp per pt but not cancerous. Mammogram: 06/29/2023 Colonoscopy: scheduled ROS CONSTITUTIONAL: Denies weight loss, fever and chills. HEENT: Denies changes in vision and hearing. RESPIRATORY: Denies SOB and cough. CV: Denies palpitations and CP GI: Denies abdominal pain, nausea, vomiting and diarrhea. : Denies dysuria and urinary frequency. MSK: Denies new myalgia and joint pain. SKIN: Denies rash and pruritus. NEUROLOGICAL: Denies headache PSYCHIATRIC: Denies recent changes in mood. PHYSICAL EXAM: GENERAL: Alert and oriented x 3. NAD EYES: EOMI. Anicteric. HENT: Moist mucous membranes. No scleral icterus. No cervical lymphadenopathy. LUNGS: Clear to auscultation bilaterally. CARDIOVASCULAR: Regular rate and rhythm. No murmur. No JVD. ABDOMEN: Soft, non-tender +bs EXTREMITIES: No edema. Non-tender. SKIN: No rashes or lesions. Warm. NEUROLOGIC: No focal neurological deficits. CN II-XII grossly intact PSYCHIATRIC: Cooperative. Appropriate mood and affect [facility] Medical History Basal cell carcinoma Right knee pain Iron deficiency anemia Hypothyroid Skin cancer Surgical History H/O: hysterectomy History of thyroidectomy S/P skin biopsy Family History Mother Hypertension Father Hypertension Maternal Grandmother Cancer Paternal Grandfather Cancer Sister Multiple sclerosis Social History Housing: House Alcohol intake: current Alcohol intake frequency: a few times a week Patient Tobacco Use Status: Former Tobacco user Tobacco use type: Cigarette Years Smoked: 30 e-Cigarette/Vaping Use: Currently Using service: No Current occupational status: employed 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 Current occupational exposures/hazards: No Cognitive needs: No Hearing needs: No Vision needs: Yes (reading glasses) Questionnaire Thrive Questionnaire Date Thrive assessed: 02/04/24 I am a: Patient What is your living situation today?: I have a steady place to live Within the past 12 months, did the food you bought not last and you didn't have the money to get more?: Never true Within the past 12 months, did you worry whether your food would run out before you got money to buy more?: Never true Do you have trouble paying for medicines?: No Do you have trouble getting transportation to medical appointments?: No Do you have trouble paying your heating and electricity bill?: No Do you have trouble taking care of your child, family member or friend?: No Do you have trouble with day-to-day activities such as bathing, preparing meals, shopping, managing finances, etc.?: No Are you currently unemployed and looking for a job?: No Are you interested in more education?: No Please select the resources that you would like help with: None Currently or been in a relationship where the following occur: No concerns reported THRIVE Score: 0 YOLIS-7 AMB Questionnaire YOLIS-7 Date YOLIS - 7 assessed: 02/04/24 Source: Developed by Drs. Mauro De LaR osa, Gabrielle Andrade, Osmar Kurtz and colleagues, with an educational savannah from [employer]. Physical exam (Primary Care) Vital Signs: Last Vital Signs Pulse 94 05/24/24 11:33 BP 96/56 L 05/24/24 11:33 Pulse Ox 98 05/24/24 11:33 Oxygen Delivery Method Room Air 05/24/24 11:33 BMI result Body Mass Index 26.0 Tobacco/Smoking Status: Tobacco use Status Tobacco use date assessed 02/04/24 05/24/24 11:28 Patient Tobacco Use Status Former Tobacco user 05/24/24 11:31 Tobacco use type Cigarette 05/24/24 11:31 e-Cigarette/Vaping Use Currently Using 05/24/24 11:41 Thrive Assessment: Date of Thrive Assessment Date Thrive assessed 02/04/24 05/24/24 11:28 Currently or been in a relationship where the following occur: No concerns reported Coding Level of Care Code Est Pt Prev Care 40-64y(10694) Diagnoses Physical exam Z00.00 Systolic CHF, chronic I50.22 Assessment & Plan Assessment & Plan (1) Physical exam: Code(s): Z00.00 - Encounter for general adult medical examination without abnormal findings Category: Medical Plan: Preventive measures for age discussed. Interval history reviewed. medications reconciled UTD (2) Systolic CHF, chronic: Code(s): I50.22 - Chronic systolic (congestive) heart failure Category: Medical Plan: euvolemic. continue follow up cardiology Orders: Orders MM screening mammo BI 2 Months Z12.31 - Encounter for screening mammogram for malignant neoplasm of breast Medications: New Jardiance (empagliflozin) 10 mg PO DAILY 90 tabs 3RF NS
[2024-05-24 11:33] VITALS: BP 96/56; PULSE 94; O2SAT 98; BMI 26.0
== END 2024-05-24 12:13 | disposition home or self-care (01) ==
PROVIDERS: PCP Internal Medicine; Visit Provider Internal Medicine
DX: Z00.00 Encounter for general adult medical examination without abnormal findings (principal); I50.22 Chronic systolic (congestive) heart failure

== ENCOUNTER → 2024-05-24 11:02 | Outpatient (BNVA) | payer BC, SELFPAY | PROVIDERS: PCP Internal Medicine; Visit Provider Internal Medicine ==

== ENCOUNTER 2024-06-15 12:26 | Outpatient (AMB) | payer BC, SELFPAY ==
--- NOTE | 2024-06-15 12:31 | A.OFFVIS_ITS ---
Vital Signs 06/15/24 12:40 Height 5 ft 4.57 in Weight 157 lb 10.088 oz BMI 26.6 BP 96/58 L Blood Pressure Location Lt brachial Position Sitting Pulse 78 Pulse Source Pulse Oximeter Pulse Oximetry (%) 98 Oxygen Delivery Method Room Air Intake Visit Reasons: Pain in unspecified joint Intake Note: Patient presents for pain in unspecified joint. I have pain on both elbows, zaida th wrist, both hands and fingers. I also feel pain on both hips and both feet. I had this pain for about 3 years. I take Tyleno and it works Allergies No Known Allergies Allergy (Verified 06/15/24 12:39) Medication List - Last Reconciled 06/15/24 by Casie Alan MD Jardiance ([email or web address]) 10 mg PO DAILY NS levothyroxine (Levoxyl) 175 mcg PO DAILY metoprolol succinate ER 50 mg PO DAILY sacubitril-valsartan 24-26 mg (Entresto) 1 tab PO BID spironolactone 25 mg PO DAILY torsemide 20 mg PO DAILY HPI Comments Details: Patient is a 54-year-old female with patient is a 54-year-old female with hypothyroidism secondary to thyroidectomy and [facility] in 2001 for multifocal papillary carcinoma, hypertension complicated by systolic heart failure who presents today for evaluation of polyarthralgias. Joint pain for the past 3 years. Involving the hands and feet. Associated with stiffness lasting about 30 mins Pain in hands wakes her up in the middle of the night. Sometimes this is associated with numbness and tingling but not consistently. Also with respect to the feet she feels that when she wakes up in the AM the feet feel sore. Hands are the same intensity of pain throughout the day. Feet are worse at night. No personal history of psoriasis, UC or Crohn's Family History: Sister with MS PFSH Medical History Basal cell carcinoma Right knee pain Iron deficiency anemia Hypothyroid Skin cancer Surgical History H/O: hysterectomy History of thyroidectomy S/P skin biopsy Family History Mother Hypertension Father Hypertension Maternal Grandmother Cancer Paternal Grandfather Cancer Sister Multiple sclerosis Social History Housing: House Alcohol intake: current Alcohol intake frequency: a few times a week Patient Tobacco Use Status: Former Tobacco user Tobacco use type: Cigarette Years Smoked: 30 e-Cigarette/Vaping Use: Currently Using service: No Current occupational status: employed 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 Current occupational exposures/hazards: No Cognitive needs: No Hearing needs: No Vision needs: Yes (reading glasses) Review of Systems Const Details: Review of Systems Constitutional: Denies fever, chills, weight loss ENT: Denies vision changes, eye pain or eye redness, dental caries, dry mouth GI: Denies nausea, vomiting, diarrhea, abdominal pain, change in BM Pulm: Denies SOB, ANTOINE, hemoptysis, wheezing Cards: Denies chest pain, palpitations Skin: Denies Raynaud's, rash, nail changes, photosensitivity, MACHINE SET UP TECHNICIAN: Denies headaches, weakness, paresthesias, recurrent falls MSK: as per HPI All other systems reviewed and are unremarkable except noted above Physical Exam Vital signs reviewed Physical Examination CONSTITUITIONAL Patient alert and cooperative. Well appearing and in no apparent painful distress HEENT Conjunctiva and sclera clear. ?Pupils equal round and reactive to light. ?No lymphadenopathy. ? CHEST/RESPIRATORY SYSTEM Normal respiratory effort and able to speak in complete sentences. ?Clear to auscultation bilaterally. ?No crackles, rales, rhonchi, wheezes heard. CARDIAC SYSTEM Regular rate and rhythm. ?S1 and S2 heard no murmurs. 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 No deformities noted. ?No overt synovitis noted however there was tenderness to palpation of the 2nd and 3rd MCPs bilaterally, 4th PIP on the right, 3rd PIP on the left and to scattered DIPs. Heberden's nodes noted to the 2nd and 3rd right DIPs as well as 2nd 3rd and 4th left DIPs. Wrists: ?Full range of motion at the wrists without pain. ?No tenderness to palpation or synovitis noted to the wrists. Elbows: Full range of motion without pain. No tenderness, weakness, swelling, increased warmth or erythema. Shoulders: Full range of motion without pain. No tenderness, weakness, swelling, increased warmth or erythema. Hips: Full range of motion without pain. Hip bursa: No tenderness to palpation Knees: ?Full range of motion. ?No tenderness, swelling, increased warmth or erythema.? Bilateral crepitations felt Ankles: Full range of motion. ?No tenderness, swelling, increased warmth or erythema.? Feet: ?Positive squeeze test bilaterally. Right foot with scar over 1st MTP secondary to prior surgery. Tenderness to palpation of the 2nd-4th MTPs. Tenderness to palpation of the left 1st through 4th MTPs. Again no evidence of swelling. Tender points:?No tenderness to palpation of the bilateral trapezius, supraspinatus, greater trochanters, anterior costochondral junctions, bilateral gluteal areas, bilateral suboccipital muscle insertions SKIN Skin intact without rashes. Results Reviewed Results Reviewed: Laboratory Tests 02/12/24 04/25/24 07:40 12:03 WBC 6.1 RBC 5.35 Hgb 15.8 Hct 47.8 H Plt Count 251 ESR 12 Sodium 140 Potassium 3.8 Chloride 105 Carbon Dioxide 24 BUN 18 H Creatinine 0.89 Calcium 9.1 9.8 D Total Bilirubin 0.4 AST 27 ALT 30 Alkaline Phosphatase 63 C-Reactive Protein 0.24 Rheumatoid Factor 20.8 H Assessment & Plan Assessment & Plan (1) Polyarthralgia: Code(s): M25.50 - Pain in unspecified joint Category: Medical Plan: #Polyarthralgias Patient is a 54-year-old female with previous history of papillary thyroid cancer status post thyroidectomy and radio ablative therapy on supratherapeutic doses of levothyroxine complicated by systolic heart failure now here with polyarthralgias. Her examination did not show any evidence of synovitis however she did tenderness to palpation of the MCPs and MTPs bilaterally. With a positive rheumatoid factor this may be indicative of early or mild rheumatoid arthritis. I would like to check a CCP and x-rays prior to commencing treatment. In addition to this she definitely also has a component of osteoarthritis involving bilateral hands. For this I will prescribe topical diclofenac 4 times a day Plan - Check CCP, CMP, ESR, CRP, Hepatitis panel - XR Hands, wrist and feet - RTC 2 weeks to discuss results (2) Osteoarthritis, hand: Code(s): M19.049 - Primary osteoarthritis, unspecified hand Category: Medical Qualifiers: Osteoarthritis type: primary Laterality: bilateral Qualified Code(s): M19.041 - Primary osteoarthritis, right hand; M19.042 - Primary osteoarthritis, left hand Plan: #Bilateral Hand OA Patient with evidence of bilateral hand OA: Heberden's nodes to the DIPs as well as tenderness to palpation of these joints. She also has a evidence of likely knee osteoarthritis with crepitations noted bilaterally. Recommended topical diclofenac 4 times a day. She also complains of flexor tenosynovitis and I recommended splinting to allow the tendon to heal. Plan - Topical diclofenac up to 4 times a day - Splinting for the flexor tenosynovitis Plan I spent 45 minutes reviewing the record and labs, taking a history, examining the patient, discussing the treatment plan and documenting in the medical record Orders: Orders C Reactive Protein Today M25.50 - Pain in unspecified joint Thyroid Stimulating Hormone Today M25.50 - Pain in unspecified joint Immunofixation Pnl, Serum Today M25.50 - Pain in unspecified joint Vitamin D 25-OH (D2 and D3) Today M25.50 - Pain in unspecified joint XR hand wrist RT Today M25.50 - Pain in unspecified joint XR foot LT min 3V Today M25.50 - Pain in unspecified joint Cyclic Citrullinated Peptide Today M25.50 - Pain in unspecified joint Complete Blood Count Auto Diff Today M25.50 - Pain in unspecified joint Comprehensive Met. Panel Today M25.50 - Pain in unspecified joint Erythrocyte Sedimentation Rate Today M25.50 - Pain in unspecified joint Hepatitis A,B,C Profile Today M25.50 - Pain in unspecified joint Protein Electrophoresis, Serum Today M25.50 - Pain in unspecified joint Free T4 (Free Thyroxine) Today M25.50 - Pain in unspecified joint XR hand wrist LT Today M25.50 - Pain in unspecified joint XR foot RT min 3V Today M25.50 - Pain in unspecified joint Medications: New diclofenac sodium 1% (Arthritis Pain (diclofenac)) apply to hands and feet four times a day 4 grams topical QID 100 grams 4RF M19.049 - Primary osteoarthritis, unspecified hand Coding Level of Care Code New Pt Level 4 (63444) Complex EM visit Add On G2211 Diagnoses Polyarthralgia M25.50 Primary osteoarthritis of both hands M19.041; M19.042 Osteoarthritis type: primary Laterality: bilateral
[2024-06-15 12:40] VITALS: BP 96/58; PULSE 78; O2SAT 98; BMI 26.6
--- OUTSIDE RECORDS SUMMARY | 2024-06-15 14:19 | XMS_ITS | Data Portability ---
Author Organization [facility], [facility] Address [address] [place] [address] Care Team Providers Care Department Administrator Name Role Phone MAIKOL VILLEGAS Supervisor Of Way JONH ZHANG Primary Care Provider [phone] Assessment Encounter Date Assessment Date Assessment LastModified by Organization Details LastModified Time 03/25/2018 03/25/2018 Right multifocal papillary in 2001 - 0.6 cm largest with 5 other foci. otherwise clear. T1, Nx KOCH in 03/2002 and additional dose in 2003. TBS scan in 01/27 was negative and thyroglobulin level was <1 (at time TSH was 163). [email or web address] Not available 03/25/2018 09:06:26 12/28/2019 12/28/2019 Right multifocal papillary in 2001 - 0.6 cm largest with 5 other foci. otherwise clear. T1, Nx KOCH in 03/2002 and additional dose in 2003. TBS scan in 01/27 was negative and thyroglobulin level was <1 (at time TSH was 163). 2020- off T4 (she says about a week) and TSH up to 70. Smoking back to 1ppd. Video visit= 30 minutes [email or web address] Not available 12/28/2019 10:30:28 03/13/2021 03/13/2021 Right multifocal papillary in 2001 - 0.6 cm largest with 5 other foci. otherwise clear. T1, Nx KOCH in 03/2002 and additional dose in 2003. TBS scan in 01/27 was negative and thyroglobulin level was <1 (at time TSH was 163). 2020- off T4 (she says about a week) and TSH up to 70. Smoking back to 1ppd. Video visit= 31 direct minutes [email or web address] Not available 03/13/2021 15:37:58 08/20/2022 08/20/2022 Right multifocal papillary in 2001 - 0.6 cm largest with 5 other foci. otherwise clear. T1, Nx KOCH in 03/2002 and additional dose in 2003. TBS scan in 01/27 was negative and thyroglobulin level was <1 (at time TSH was 163). 2020- off T4 (she says about a week) and TSH up to 70. Smoking back to 1ppd. TSH slightly increased to 2.43 (08/14): was 0.21 (03/15) Dose has remained constant at 175 Stay on same dose (175). Repeat labs in October 2022. Order Tg [email or web address] Not available 08/20/2022 15:30:31 08/19/2023 08/19/2023 Right multifocal papillary in 2001 - 0.6 cm largest with 5 other foci. otherwise clear. T1, Nx KOCH in 03/2002 and additional dose in 2003. TBS scan in 01/27 was negative and thyroglobulin level was <1 (at time TSH was 163). 2020- off T4 (she says about a week) and TSH up to 70. Smoking back to 1ppd. TSH slightly increased to 2.43 (08/14): was 0.21 (03/15) Dose has remained constant at 175 Stay on same dose (175). Repeat labs in October 2022. Order Tg 08/15: Stable. although TSH is measurable, Tg is not and suggests no active thyroid cancer cells. Continue to monitor Enhanced Provider time spent performing enhanced activities which may include, but are not limited to: reviewing tests, obtaining and/or reviewing patient history; ordering medications, test or procedures; EMR documentation; communication with patient, family, caregiver(s), VNA; pre-visit prep time communication with specialists, ER staff. Time spent: 32 (minutes) [email or web address] Not available 08/19/2023 16:16:50 Plan of Treatment Reminders Order Date Submit Date Provider Last Modified By Organization Details Last Modified Time Details Appointments Follow Up, 2024 10:40A Ryley Villegas MD Not available Not available Not available Lab TSH, serum or plasma 2020 021 [facility], [address] [place] [address], [id number], 07/12/2021 21:25:44 T4, free, serum 2020 021 [facility], [address] [place] [address], [id number], 07/12/2021 21:25:43 T4, free, serum 2021 022 [facility], [address] [place] [address], [id number], 07/15/2021 15:24:25 TSH, serum or plasma 2021 022 [facility], [address] [place] [address], [id number], 07/15/2021 15:24:36 TSH, serum or plasma 2022 [address] [facility] [facility], [address] [place], [address], 01/05/2024 11:23:18 T4, free, serum 2022 [address] [facility] [facility], [address] [place], [address], 01/05/2024 11:23:02 thyroglo bulin Ab, serum 2022 023 [facility], [address] [place], [address], 12/02/2022 11:07:05 TSH, serum or plasma [address] [facility] [facility], [address] [facility], [address] [place] [address], [place], [id number], 09/11/2023 17:36:06 T4, free, serum [address] [facility] [facility], [address] [facility], [address] [place] [address], [id number], 09/11/2023 17:36:07 thyroglo bulin Ab, serum 2023 024 ALNA [facility], [address], [place], [id number], 09/11/2023 17:36:08 TSH, serum or plasma 2023 024 INTERFACE [facility], [address] [place] [address], [address], [place], [address], 09/11/2023 17:36:06 T4, free, serum 2023 024 INTERFACE [facility], [address] [place] [address], [address], [place], [address], 09/11/2023 17:36:07 thyroglo bulin Ab, serum 2023 024 INTERFACE [facility], [address] [place] [address], [facility] [address], [place], [address], 09/11/2023 17:36:08 Referral None recorded . Procedures None recorded . Surgeries None recorded . Imaging None recorded . Medication Orders Levoxyl 175 mcg tablet 2017 018 [id number], [address] [place] [address], [id number], 03/25/2018 09:15:51 Levoxyl 175 mcg tablet 2019 020 [address] [facility], [address], [place], [id number], 12/16/2022 08:59:02 Levoxyl 175 mcg tablet 2020 021 [facility], [address], [place], [id number], 03/13/2021 15:38:57 Levoxyl 175 mcg tablet 2022 023 [place] [address] [facility], [address], [place], [id number], 12/16/2022 08:59:02 Patient TargetsNo targets recorded. Patient Instructions Encounter Date Encounter Id Patient Instructions Last Modified By Organization Details Last Modified Time 03/25/2018 [id number] deciding about using medicines to quit smoking [email or web address] Not available 03/25/2018 09:15:46 Quitting Tobacco: Care Instructions [email or web address] Not available 03/25/2018 09:15:46 - Get labs done every 3 months for now. - Continue taking thyroid hormone every day away from other food and especially from other minerals like calcium (dairy), iron, magnesium, etc. - Contact office if any symptoms of low thyroid (excess fatigue, unexplained weight gain, feeling much more cold than usual, constipation, very dry skin) or excess thyroid (heart racing, unexplained weight loss, feeling jittery/nervous/ anxious, change in frequency of moving bowels, tremors, or insomnia) - Work on decreasing smoking. [email or web address] Not available 03/25/2018 09:11:10 Counseling done {{Patient not ready to quit Contemplati ng quitting Taperin g Cigarettes roni d up for support prescrip tion for stop smoking medication given}} {{Patient not ready to quit Contemplati ng quitting Taperin g Cigarettes roni d up for support prescrip tion for stop smoking medication given}} Goal for follow up visit {{adding exercise regular meals stress management impro ving sleep therapist identifying sponsor}} {{adding exercise regular meals stress management impro ving sleep therapist identifying sponsor}} {{adding exercise regular meals stress management impro ving sleep therapist identifying sponsor}} My Health To Do List {{go to [employer] or call s ign up for waqas text 2 quit or other stop smoking waqas contact [employer]}} {{go to [employer] or call s ign up for waqas text 2 quit or other stop smoking waqas contact [employer]}} {{go to [employer] or call s ign up for waqas text 2 quit or other stop smoking waqas contact [employer]}} Counseling done {{Patient not ready to quit Contemplati ng quitting* Taperi ng Cigarettes roni d up for support prescrip tion for stop smoking medication given}} {{Patient not ready to quit Contemplati ng quitting Taperin g Cigarettes roni d up for support prescrip tion for stop smoking medication given}} Goal for follow up visit {{adding exercise regular meals stress management impro ving sleep therapist identifying sponsor}} {{adding exercise regular meals stress management impro ving sleep therapist identifying sponsor}} {{adding exercise regular meals stress management impro ving sleep therapist identifying sponsor}} My Health To Do List {{go to [employer] or call * sign up for waqas text 2 quit or other stop smoking waqas contact [employer]}} {{go to [employer] or call s ign up for waqas text 2 quit or other stop smoking waqas contact [employer]}} {{go to [employer] or call s ign up for waqas text 2 quit or other stop smoking waqas contact [employer]}} [email or web address] Not available 03/25/2018 08:57:51 12/28/2019 [id number] deciding about using medicines to quit smoking [email or web address] Not available 12/28/2019 09:48:07 Quitting Tobacco: Care Instructions [email or web address] Not available 12/28/2019 09:48:07 - Get labs done every 3 months starting after 02/23/20. - Continue taking thyroid hormone every day away from other food and especially from other minerals like calcium (dairy), iron, magnesium, etc. - Contact office if any symptoms of low thyroid (excess fatigue, unexplained weight gain, feeling much more cold than usual, constipation, very dry skin) or excess thyroid (heart racing, unexplained weight loss, feeling jittery/nervous/ anxious, change in frequency of moving bowels, tremors, or insomnia) - Work on decreasing smoking. Using nicorette mints. [email or web address] Not available 12/28/2019 10:28:03 Counseling done {{Patient not ready to quit Contemplati ng quitting* Taperi ng Cigarettes roni d up for support prescrip tion for stop smoking medication given}} {{Patient not ready to quit Contemplati ng quitting Taperin g Cigarettes roni d up for support prescrip tion for stop smoking medication given}} Goal for follow up visit {{adding exercise regular meals stress management impro ving sleep therapist identifying sponsor}} {{adding exercise regular meals stress management impro ving sleep therapist identifying sponsor}} {{adding exercise regular meals stress management impro ving sleep therapist identifying sponsor}} My Health To Do List {{go to [employer] or call * sign up for waqas text 2 quit or other stop smoking waqas contact [employer]}} {{go to [employer] or call s ign up for waqas text 2 quit or other stop smoking waqas contact [employer]*}} {{go to [employer] or call s ign up for waqas text 2 quit or other stop smoking waqas contact [employer]}} Counseling done {{Patient not ready to quit Contemplati ng quitting Taperin g Cigarettes roni d up for support prescrip tion for stop smoking medication given}} {{Patient not ready to quit Contemplati ng quitting Taperin g Cigarettes roni d up for support prescrip tion for stop smoking medication given}} Goal for follow up visit {{adding exercise regular meals stress management impro ving sleep therapist identifying sponsor}} {{adding exercise regular meals stress management impro ving sleep therapist identifying sponsor}} {{adding exercise regular meals stress management impro ving sleep therapist identifying sponsor}} Discussion: 6 months/ 20 minutes. [email or web address] Not available 12/28/2019 10:29:41 03/13/2021 [id number] deciding about using medicines to quit smoking [email or web address] Not available 03/13/2021 15:38:50 Quitting Tobacco: Care Instructions [email or web address] Not available 03/13/2021 15:38:50 - Get labs done every 3 months starting after 03/25/21. - Continue taking thyroid hormone every day away from other food and especially from other minerals like calcium (dairy), iron, magnesium, etc. - Contact office if any symptoms of low thyroid (excess fatigue, unexplained weight gain, feeling much more cold than usual, constipation, very dry skin) or excess thyroid (heart racing, unexplained weight loss, feeling jittery/nervous/ anxious, change in frequency of moving bowels, tremors, or insomnia) - Work on decreasing smoking. Using nicorette mints. [email or web address] Not available 03/13/2021 15:36:31 Counseling done {{Patient not ready to quit Contemplati ng quitting* Taperi ng Cigarettes roni d up for support prescrip tion for stop smoking medication given}} {{Patient not ready to quit Contemplati ng quitting Taperin g Cigarettes roni d up for support prescrip tion for stop smoking medication given}} Goal for follow up visit {{adding exercise regular meals stress management impro ving sleep therapist identifying sponsor}} {{adding exercise regular meals stress management impro ving sleep therapist identifying sponsor}} {{adding exercise regular meals stress management impro ving sleep therapist identifying sponsor}} My Health To Do List {{go to [employer] or call * sign up for waqas text 2 quit or other stop smoking waqas contact [employer]}} {{go to [employer] or call s ign up for waqas text 2 quit or other stop smoking waqas contact smokeHelmi [employer].gov*}} {{go to [employer] or call s ign up for waqas text 2 quit or other stop smoking waqas contact [employer]}} Counseling done {{Patient not ready to quit Contemplati ng quitting Taperin g Cigarettes roni d up for support prescrip tion for stop smoking medication given}} {{Patient not ready to quit Contemplati ng quitting Taperin g Cigarettes roni d up for support prescrip tion for stop smoking medication given}} Goal for follow up visit {{adding exercise regular meals stress management impro ving sleep therapist identifying sponsor}} {{adding exercise regular meals stress management impro ving sleep therapist identifying sponsor}} {{adding exercise regular meals stress management impro rahel sleep therapist identifying sponsor}} Discussion: 6 months/ 20 minutes. Not available 03/13/2021 13:45:53 08/20/2022 [id number] - Get labs done every 3 months starting October 2022. - Continue taking thyroid hormone every day away from other food and especially from other minerals like calcium (dairy), iron, magnesium, etc. - Contact office if any symptoms of low thyroid (excess fatigue, unexplained weight gain, feeling much more cold than usual, constipation, very dry skin) or excess thyroid (heart racing, unexplained weight loss, feeling jittery/nervous/ anxious, change in frequency of moving bowels, tremors, or insomnia) - Work on decreasing smoking. Using nicorette mints. [email or web address] Not available 08/20/2022 15:32:56 Counseling done {{Patient not ready to quit Contemplati ng quitting* Taperi ng Cigarettes roni d up for support prescrip tion for stop smoking medication given}} {{Patient not ready to quit Contemplati ng quitting Taperin g Cigarettes roni d up for support prescrip tion for stop smoking medication given}} Goal for follow up visit {{adding exercise regular meals stress management impro rahel sleep therapist identifying sponsor}} {{adding exercise regular meals stress management impro rahel sleep therapist identifying sponsor}} {{adding exercise regular meals stress management impro jgg sleep therapist identifying sponsor}} My Health To Do List {{go to [employer] or call * sign up for waqas text 2 quit or other stop smoking waqas contact smokeHelmi [employer].gov}} {{go to [employer] or call s ign up for waqas text 2 quit or other stop smoking waqas contact [employer]*}} {{go to [employer] or call s ign up for waqas text 2 quit or other stop smoking waqas contact smoke[employer].gov}} Counseling done {{Patient not ready to quit Contemplati ng quitting Taperin g Cigarettes roni d up for support prescrip tion for stop smoking medication given}} {{Patient not ready to quit Contemplati ng quitting Taperin g Cigarettes roni d up for support prescrip tion for stop smoking medication given}} Goal for follow up visit {{adding exercise regular meals stress management impro ving sleep therapist identifying sponsor}} {{adding exercise regular meals stress management impro ving sleep therapist identifying sponsor}} {{adding exercise regular meals stress management impro ving sleep therapist identifying sponsor}} Discussion: 12 months/ 20 minutes. [email or web address] Not available 08/20/2022 15:33:20 08/19/2023 [id number] - Get labs done every 3 months - Continue taking thyroid hormone every day away from other food and especially from other minerals like calcium (dairy), iron, magnesium, etc. - Contact office if any symptoms of low thyroid (excess fatigue, unexplained weight gain, feeling much more cold than usual, constipation, very dry skin) or excess thyroid (heart racing, unexplained weight loss, feeling jittery/nervous/ anxious, change in frequency of moving bowels, tremors, or insomnia) [email or web address] Not available 08/19/2023 16:08:22 one year [email or web address] Not available 0 08/19/2023 16:15:52 Reason for Referral None Reported. Results Created Date Observation Date Name Description Value Unit Range Abnormal Flag Note LastModifiedBy Organization Detail LastModifiedTime 05/19/20 19 05/19/2019 T4, free, serum free T4 1.65 NG/dL (0.70- 1.80) Not Available [facility] [address] [place], [address], 05/19/2019 13:52:10 05/19/20 19 05/19/2019 TSH, serum or plasm a TSH 1.37 mIU/m L (0.40- 4.00) Not Available [facility] [address] [place], [address], 05/19/2019 13:52:12 10/07/19 20 10/07/2019 T4, free, serum free T4 0.68 NG/dL (0.70- 1.80) low Not Available [facility] [address] [place], [address], 10/07/2019 16:02:51 05/15/20 20 10/07/2019 TSH, serum or plasm a TSH 70.54 uIU/m L (0.4-4 .00) high Not Available [facility] [address] [place], [address], 10/07/2019 16:02:52 12/09/19 20 12/09/2019 T4, free, serum free T4 1.43 NG/dL (0.70- 1.80) Not Available [facility] [address] [place], [address], 12/09/2019 11:58:09 12/09/1912/09/2019 TSH, serum or plasm a TSH 11.81 uIU/m L (0.4-4 .00) high Not Available [facility] [address] [place], [address], 12/09/2019 11:58:11 12/09/19 20 12/12/2019 thyro globu diogo Ab, serum thyroglobuli n antibody, serum <1.0 Refer ence range : 0.0 to 0.9 Unit: IU/mL (NOTE ) Thyro globu diogo Antib imtiaz measu red by Beckm an Coult er Metho dolog y TEST PERFO RMED BY [facility], [place], [facility] Y Not Available [facility] [address] [place], [address], 12/12/2019 12:30:00 12/09/1912/12/2019 thyro globu diogo refle x (do not order -refl ex test) thyroglobin reflex immunoassy low <0.1 Refer ence range : 1.5 to 38.5 Unit: ng/mL (NOTE ) Accor ding to the Elma fernandez Acade my of [employer] emist ry, the refer ence inter veda for Thyro globu diogo (TG) shoul d be relat ed to euthy roid patie nts and not for patie nts who under went thyro idect adam. TG refer ence inter vals for these patie nts depen d on the resid ual mass of the thyro id tissu e left after surge ry. Estab gege guzman a post- opera tive basel ine is recom iggy d. The assay limit of quant itati on is 0.1 ng/mL Thyro globu diogo measu red by Beckm an Coult er Immun ometr ic Assay TEST PERFO RMED BY [facility], [place], [facility] Not Available [facility] [address] [place], [address], 12/12/2019 12:30:30 11/16/19 21 11/15/2020 T4, free, serum free T4 1.58 NG/dL (0.70- 1.80) Not Available [facility] [address] [place] [place], [address], 11/15/2020 21:10:39 11/16/19 21 11/15/2020 TSH, serum or plasm a TSH 1.34 uIU/m L (0.4-4 .00) Not Available [facility] [address], [place], [address], 11/15/2020 21:10:42 11/16/19 21 11/16/2020 THYRO GLOBU DIOGO,T UMOR MRKR W/RFL X thyroglobuli n antibody, serum <1.0 Refer ence range : 0.0 to 0.9 Unit: IU/mL (NOTE ) Thyro globu diogo Antib imtiaz measu red by Cooperm an Coult er Metho dolog y Test [facility], [address], [place] [address] Not Available [facility] [address], [place], [address], 11/16/2020 12:06:51 11/16/19 21 11/16/2020 THYRO GLOBU DIOGO REFLE X IMMUN OASSA Y thyroglobin reflex immunoassy low <0.1 Refer ence range : 1.5 to 38.5 Unit: ng/mL (NOTE ) Accor ding to the Natio nal Acade my of [employer] tha [employer] emist ry, the refer ence inter veda for Thyro globu diogo (TG) shoul d be relat ed to euthy roid patie nts and not for patie nts who under went thyro idect adam. TG refer ence inter vals for these patie nts depen d on the resid ual mass of the thyro id tissu e left after surge ry. Estab gege ng a post- opera tive basel ine is recom iggy d. The assay limit of quant itati on is 0.1 ng/mL Thyro globu diogo measu red by Beckm an Coult er Immun ometr ic Assay Test perfo rmed by [facility], [address], [place] [address] Not Available [facility] [address] [place], [address], 11/16/2020 12:07:10 07/12/19 22 07/12/2021 FREE T4 free T4 1.66 NG/dL (0.70- 1.80) Not Available [facility] [address] [place], [address], 07/12/2021 21:25:43 07/12/19 22 07/12/2021 TSH TSH 10.50 uIU/m L (0.4-4 .2) high Not Available [facility] [address] [place], [address], 07/12/2021 21:25:44 03/03/20 22 03/03/2022 FREE T4 free T4 1.99 NG/dL (0.70- 1.80) high Not Available [facility] [address] [place], [address], 03/03/2022 21:21:05 03/03/20 22 03/03/2022 TSH TSH 0.21 uIU/m L (0.4-4 .2) low Not Available [facility] [address] [place], [address], 03/03/2022 21:21:07 03/03/20 22 03/05/2022 THYRO GLOBU DIOGO,T UMOR MRKR W/RFL X thyroglobuli n antibody, serum <1.0 Refer ence range : 0.0 to 0.9 Unit: IU/mL (NOTE ) Thyro globu diogo Antib imtiaz measu red by Beckm an Coult er Metho dolog y Test perfo rmed by [facility], [address], [place] [address] Not Available [facility] [address], [place], [address], 03/05/2022 12:06:55 03/03/20 22 03/05/2022 THYRO GLOBU DIOGO REFLE X IMMUN OASSA Y thyroglobin reflex immunoassy low <0.1 Refer ence range : 1.5 to 38.5 Unit: ng/mL (NOTE ) Accor ding to the Elma fernandez Acadjulita my of [employer] emist ry, the refer ence inter veda for Thyro globu diogo (TG) shoul d be relat ed to euthy roid patie nts and not for patie nts who under went thyro idect adam. TG refer ence inter vals for these patie nts depen d on the resid ual mass of the thyro id tissu e left after surge ry. Estab lishi ng a post- opera tive basel ine is recom iggy d. The assay limit of quant itati on is 0.1 ng/mL Thyro globu diogo measu red by Beckm an Coult er Immun ometr ic Assay Test perfo rmed by [facility], [address], [place] [address] Not Available [facility] [address], [place], [address], 03/05/2022 12:07:14 08/16/19 23 08/15/2022 FREE T4 free T4 1.79 NG/dL (0.70- 1.80) Not Available [facility] [address], [place], [address], 08/15/2022 20:02:51 08/16/19 23 08/15/2022 TSH TSH 2.43 uIU/m L (0.4-4 .2) Not Available [facility] [address], [place], [address], 08/15/2022 20:02:53 12/02/19 23 12/01/2022 FREE T4 free T4 1.07 NG/dL (0.70- 1.80) Not Available [facility] [address] [place], [address], 12/01/2022 20:54:11 12/02/19 23 12/01/2022 TSH TSH 8.84 uIU/m L (0.4-4 .2) high Not Available [facility] [address] [place], [address], 12/01/2022 20:54:13 12/02/19 23 12/02/2022 THYRO GLOBU DIOGO,T UMOR MRKR W/RFL X thyroglobuli n antibody, serum <1.0 Refer ence range : 0.0 to 0.9 Unit: IU/mL (NOTE ) Thyro globu diogo Antib imtiaz measu red by Beckm an Coult er Metho dolog y Test perfo rmed by [facility], [address], [place] [address] Not Available [facility] [address], [place], [address], 12/02/2022 11:07:05 12/02/19 23 12/02/2022 THYRO GLOBU DIOGO REFLE X IMMUN OASSA Y thyroglobin reflex immunoassy low <0.1 Refer ence range : 1.5 to 38.5 Unit: ng/mL (NOTE ) Accor ding to the Natio nal Acade my of [employer] emist ry, the refer ence inter veda for Thyro globu diogo (TG) shoul d be relat ed to euthy roid patie nts and not for patie nts who under went thyro idect adam. TG refer ence inter vals for these patie nts depen d on the resid ual mass of the thyro id tissu e left after surge ry. Estab lisaniket ng a post- opera tive basel ine is recom iggy d. The assay limit of quant itati on is 0.1 ng/mL Thyro globu diogo measu red by Beckm an Coult er Immun ometr ic Assay Test perfo rmed by [facility], [address], [place] [address] Not Available [facility] [address] [place], [address], 12/02/2022 11:07:26 05/13/20 23 05/13/2023 FREE T4 free T4 1.51 NG/dL (0.70- 1.80) Not Available [facility] [address] [place], [address], 05/13/2023 20:41:56 05/13/20 23 05/13/2023 TSH TSH 1.40 uIU/m L (0.4-4 .2) Not Available [facility] [address], [place], [address], 05/13/2023 20:41:58 05/13/20 23 05/15/2023 THYRO GLOBU DIOGO,T UMOR MRKR W/RFL X thyroglobuli n antibody, serum <1.0 Refer ence range : 0.0 to 0.9 Unit: IU/mL (NOTE ) Thyro globu diogo Antib imtiaz measu red by Beckm an Coult er Metho dolog y Test perfo rmed by [facility], [address], [place] [address] Not Available [facility] [address], [place], [address], 05/15/2023 11:06:43 05/13/20 23 05/15/2023 THYRO GLOBU DIOGO REFLE X IMMUN OASSA Y thyroglobin reflex immunoassy low <0.1 Refer ence range : 1.5 to 38.5 Unit: ng/mL (NOTE ) Accor ding to the Natio nal Ac[facility] my of [facility] em[facility], the refer ence inter veda for Thyro globu diogo (TG) shoul d be relat ed to euthy roid patie nts and not for patie nts who under went thyro idect adam. TG refer ence inter vals for these patie nts depen d on the resid ual mass of the thyro id tissu e left after surge ry. Estab lishi ng a post- opera tive basel ine is recom iggy d. The assay limit of quant itati on is 0.1 ng/mL Thyro globu diogo measu red by Elana [place] Coult er Immun ometr ic Assay Test perfo rmed by [facility], [address], [place] [address] Not Available [facility] [address], [place], [address], 05/15/2023 11:07:02 09/08/19 24 09/11/2023 THYRO ID STIMU LATIN G HORMO NE TSH-icma 0.50 uu/mL Refer ence Range : Non-P regna nt Adult 0.450 -4.50 0 Pregn delilah First Trime ster 0.100 -4.00 0 Secon d Trime ster 0.200 -4.00 0 Third Trime ster 0.300 -4.50 0 Not Available [facility] [address] [place], [address], 09/11/2023 17:36:06 09/08/19 24 09/11/2023 FREE THYRO XINE free thyroxine 1.71 NG/dL Refer ence Range : >=20y : 0.82 - 1.77 Not Available [facility] [address] [place], [address], 09/11/2023 17:36:07 09/08/19 24 09/09/2023 TGAB+ THYRO G AILYN REFLE X IF NEG thyroglobuli n antibody <1.0 IU/mL 0.0-0. 9 Thyro globu idogo Antib imtiaz measu red by Elana [place] Coult er Metho dolog y It shoul d be noted that the prese nce of thyro globu diogo antib odies may not be patho genic nor diagn ostic , espec ially at very low level s. The assay manuf actur er has found that four perce nt of indiv idual s witho ut evide nce of thyro id disea se or autoi mmuni ty will have posit bennett TgAb level s up to 4 IU/mL . Not Available [facility] ([facility]) [address] [facility] [address], [place], [address], 09/11/2023 17:36:08 09/08/19 24 09/09/2023 TGAB+ THYRO G AILYN REFLE X IF NEG thyroglobuli n by ailyn <0.1 NG/mL 1.5-38 .5 below low normal Accor ding to the Natio nal Acade my of [facility] emist ry, the refer ence inter veda for Thyro globu diogo (TG) shoul d be relat ed to euthy roid patie nts and not for patie nts who under went thyro idect adam. TG refer ence inter vals for these patie nts depen d on the resid ual mass of the thyro id tissu e left after surge ry. Estab lishi ng a post- opera tive basel ine is recom iggy d. The assay limit of quant itati on is 0.1 ng/mL Thyro globu diogo measu red by Elana [place] Coult er Immun ometr ic Assay Not Available [facility] ([facility]) [address] [facility] [address], [place], [address], 09/11/2023 17:36:08 Result Notes None recorded. Problems Name Problem SNOMED Code Status Onset Date Resolution Date Notes Provider Name and Address Organization Details Recorded Time Postoperative hypothyroidism 71885349 [place], [address], [facility] 5 17:09:34 Tobacco user [id number] Active 2007 [place], [address], [facility] 4 12:09:02 Primary malignant neoplasm of thyroid gland 64317014 Active 2004 [place], [address], [facility] 5 17:09:34 Hypothyroidism 69578412 Active 2004 [place], [address], [facility] 5 17:05:00 Problem Notes None recorded. Procedures Surgical History Date Name Laterality Status Provider Name and Address Organization Details Recorded Time 3 Smoking cessation counseling completed Griselda Giordano LPN [facility] 08/19/2022 16:54:04 1 Smoking cessation counseling completed Marycarmen Godinez [facility] 03/13/2021 13:45:51 1 Smoking cessation counseling cancelled Marycarmen Godinez [facility] 07/25/2020 16:22:29 0 Smoking cessation counseling completed Maikol Villegas MD [address] [place] [address], [address], [facility] 12/28/2019 10:22:50 8 Smoking cessation counseling completed Iwona [facility] 03/25/2018 08:39:04 8 Carbon Monoxide Testing completed Iwona [facility] 03/25/2018 09:37:52 7 Smoking cessation counseling completed Maikol Villegas MD [address] [place] [address], [phone], [facility] 02/03/2017 08:53:27 6 Smoking cessation counseling completed Marcie Condon [facility] 12/05/2015 15:36:55 Imaging Results None recorded. Procedure Notes None recorded. Medical Equipment None Reported. Allergies No known drug allergies Medications Name Sig Start Date Stop Date Status Note LastModified by Organization Details LastModified Time Iron (ferrous sulfate) 325 mg (65 mg iron) tablet Take 1 tablet every day by oral route. 07/25 completed Not Available Not Available Not Available Levoxyl 200 mcg tablet 1 tab PO QD Sched ule appnt for refills* 10/29 completed KESHIA 10/2014, last labs 10/2014, no f/u booked Not Available Not Available Not Available Levoxyl 175 mcg tablet TAKE 1 TABLET BY MOUTH EVERY DAY NO SUBSTITU TION 2023 active Not Available Not Available Not Avai lable levothyro xine 125 mcg tablet take 2 tablets by mouth once daily 10/26 completed last appt 09/10, last labs 07/29, no f/u schedule d Not Available Not Available Not Available Levoxyl 112 mcg tablet take 2 tablets by mouth once daily 2010 active see notes in hx section of 05/28/10 labs, pt to see dr villegas in july 2010 and repeat labs then. will refill enough to get to July appt. Not Available Not Available Not Available Vitals Date Recorded Body weight Provider Name an d Address Organization Details Last Updated DateTime 03/25/2018 50922.6 g [facility] 03/25/2018 08:41:31 Date Recorded Body mass index (BMI) Body height Provider Name and Address Organization Details Last Updated DateTime 03/25/2018 26 kg/m2 162.56 cm [facility] 03/25/2018 08:41:39 Date Recorded Heart rate Provider Name an d Address Organization Details Last Updated DateTime 03/25/2018 77 /min Iwona [facility] 03/25/2018 08:45:19 Date Recorded Body weight Provider Name an d Address Organization Details Last Updated DateTime 08/20/2022 48461.65 g Griselda Giordano LPN [facility] 08/20/2022 14:44:31 Date Recorded Body mass index (BMI) Body height Provider Name and Address Organization Details Last Updated DateTime 08/20/2022 27.4 kg/m2 163.2 cm Griselda Giordano LPN [facility] 08/20/2022 14:44:38 Date Recorded Heart rate Provider Name an d Address Organization Details Last Updated DateTime 08/20/2022 94 /min Griselda Giordano [facility] 08/20/2022 14:50:03 Date Recorded Body height Provider Name an d Address Organization Details Last Updated DateTime 08/19/2023 163.2 cm CARMELLA Roach MA [facility] 08/19/2023 15:36:39 Date Recorded Body mass index (BMI) Provider Name and Address Organization Details Last Updated DateTime 08/19/2023 29.3 kg/m2 Na Loaiza, [employer] [facility] 08/19/2023 15:38:03 Date Recorded Body weight Provider Name an d Address Organization Details Last Updated DateTime 08/19/2023 36227.17 g Na Damoner CARMELLA [facility] 08/19/2023 15:38:04 Date Recorded Heart rate Provider Name an d Address Organization Details Last Updated DateTime 08/19/2023 82 /min Na CARMELLA Loaiza [facility] 08/19/2023 15:40:03 Date Recorded Systolic blood pressure Diastolic blood pressure Provider Name and Address Organization Details Last Updated DateTime 03/25/2018 126 mm[Hg] 69 mm[Hg] Iwona Rogersn [facility] 03/25/2018 08:45:16 Date Recorded Systolic blood pressure Diastolic blood pressure Provider Name and Address Organization Details Last Updated DateTime 08/20/2022 118 mm[Hg] 62 mm[Hg] Griselda Giordano LPN [facility] 08/20/2022 14:49:38 Date Recorded Systolic blood pressure Diastolic blood pressure Provider Name and Address Organization Details Last Updated DateTime 08/19/2023 132 mm[Hg] 72 mm[Hg] Na CARMELLA Loaiza [facility] 08/19/2023 15:40:00 Social History Question Answer Notes LastModified by Organizat ion Details LastModified Time Tobacco Smoking Status Current Every Day Smoker a pack a day Carline Camarillo PA-C [address] [place] [address], [phone], [facility] 07/18/2011 12:18:08 What Is Your Level Of Alcohol Consumption? Occasional Information not available 08/20/2022 Which Illicit Or Recreational Drugs Have You Used? None Denies Information not available 12/05/2015 How Many Days In The Past Year Have You Had A Heavy Drinking Consumption (4+ Female, 5+ Male)? 0 Information not available 12/05/2015 Marital Status Single Engaged [facility] Informati on not available 07/18/2011 What Was The Date Of Your Most Recent Tobacco Screening? 03/25/2018 Information not available 12/15/2018 How Many Children Do You Have? 4 19, 17,16, 14 [email or web address] Information not available 09/20/2008 Do You Use Any Illicit Or Recreational Drugs? No Information not available 03/13/2021 Do You Or Have You Ever Used Any Other Forms Of Tobacco Or Nicotine? No Information not available 08/20/2022 Sex: Unknown Functional Status None recorded. Mental Status None recorded. Family History Relationship Description Onset Age of this Age Resolved Age Notes LastModified by Organization Details LastModified Time Father Benign hypertension [email or web address] n Not available 11/01/2014 16:53:10 Notes:lesli THOMPSON has thyroid. si ster-had biopsy of thyroid, waiting for restuls (06/2011) brother-healthy Dad- 61. HTN. Mom- 60. no serious conditions. Toby THOMPSON had throat CA. 11/05- oldest is 21 (still in [place]- wants to go back to school). Youngest 17 (4 taller than brother). Other finished first year [employer] 11/06- oldest is 22 (girl)- living in [facility] (with boyfriend). 2nd (boy) 20 at [employer]. James going to [employer]. Youngest (boy)is 16. 02/08- everyone is OK. 04/11- All kids out Oldest in [facility]. Middle in [place]. Youngest [employer] (11/08). Youngest at [employer]. 12/2019 - Sister with breast cancer, surgery in May 2019. Kids OK- 25 y.o. 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 Youngest- he's at [employer])- will be remote. 2020: Kids OK. 2022: No changes. Youngest in [place] (phys scie and movement). Medical History Condition Response Thyroid Disease Y Gynecological HistoryNo gynecological history recorded. Obstetrics History GPAL:G 0 P 0 0 0 0 Past Encounters Encounter ID Performer Location Encounter Start Date Encounter Closed Date Diagnosis/Indication Diagnosis SNOMED-CT Code Diagnosis ICD10 Code Diagnosis Note [id number] [facility], [address] [address] 06/12/2004 13:58:19 06/12/2004 17:05:16 [id number] [facility], [address] [address] 12/05/2004 11:31:23 12/05/2004 17:06:52 [id number] [facility], [facility] [place] [place] [id number] 12/12/2005 11:59:07 06/14/2008 02:02:29 [id number] Endocrino logy, [facility] [place] [id number] 08/12/2006 12:19:43 08/12/2006 13:57:53 [id number] LAB - [facility] [place] [id number] 08/12/2006 12:57:18 08/12/2006 12:57:27 [id number] LAB - [facility] [place] [place] [id number] 01/19/2008 12:06:21 01/19/2008 12:06:33 [id number] Endocrino logy, [facility] [place] [id number] 01/19/2008 10:43:09 06/14/2008 02:02:29 [id number] Endocrino logy, [facility] [place] [id number] 09/20/2008 14:53:41 09/21/2008 10:05:42 [id number] LAB - [facility] [place] [place] [id number] 09/20/2008 15:55:08 09/20/2008 15:55:16 [id number] Endocrino logy, [facility] [place] [id number] 03/27/2010 15:56:20 04/04/2010 16:09:20 [id number] Marcie Condon LPN [facility], [facility] [place] [id number] 08/21/2010 17:45:49 08/22/2010 09:22:08 [id number] Marcie Condon LPN [facility], [facility] [place] [id number] 07/18/2011 10:51:50 07/18/2011 12:10:05 [id number] Carline Camarillo PA-C Endocrino logy, [facility] [place] [id number] 09/10/2012 15:01:21 09/10/2012 15:58:54 [id number] Priti Whipple [facility], [address] [address] 10/26/2013 11:17:33 10/26/2013 11:58:01 Primary malignant neoplasm of thyroid gland 56581418 Thyroglobu diogo low with TSH suppressed . Fluctuatin g doses- was drifting up from 1.9 to 3.86 but then very high fT4 after increase from 112 bid to 125 bid (250 total perday). Now on 175 daily. Given fluctuatio ns, brand name would seem to be approrpria te. Some of flucuation may also be due to changes in smoking (was using e-cigarett e but now back on 07/26 ppd). Original surgery was 2001 (had samira-thyro idectomy as child and then completion for CA). Follow Thyroglobu diogo yearly. Other labs q 6 months but if goes to brand name, will need extra set in 2 months. Would like to have TSH in range between 0.1 and 0.05. Postoperat bennett hypothyroidism [id number] Was on 125 x 2 pills for TTD of 250 but had high fT4 and now back to 175 mcg. Wants to use brand name for better consistenc y and also finds that her periods are much heavier on generic T4. Tobacco user [id number] e ncourage smoking cessation. [id number] [facility], [address] [address] 11/01/2014 15:23:06 11/01/2014 17:02:14 Primary malignant neoplasm of thyroid gland 07617477 Right multifocal papillary in 2001 - 0.6cm largest with 5 other foci. otherwise clear. T1, Nx KOCH in 03/2002 and additional dose in 2003. TBS scan in 01/27 was negative and thyroglobu diogo level was <1 (at time TSH was 163). Thyroglobu diogo has been unmeasurab le. Postoperat bennett hypothyroidism 42386996 TSH up to 13 on 175 but with increase to 200, now has TSH = 0.03 and high free T4 of 2.04. Takes T4 same time of day. Always takes with cup of coffee so no change in pattern. No obvious sx of excess T4 but given high free T4 level, will drop dose back to 175. Labs every 3 months. In past, had been on 125 x 2 pills for TTD of 250 but had high fT4 - did OK when went back to 175 mcg. Wants to use brand name for better consistenc y and also finds that her periods are much heavier on generic T4 and much better (less heavy) on Levoxyl. [id number] Maikol Villegas MD [facility], [address] [address] 12/05/2015 15:12:46 12/05/2015 16:56:52 Cigarette smoker 67507097 F17.210 Tried vapor but it broke. Discussed issue of smoking and ramificati ons.She would like to go to hypnotist. Postoperat bennett hypothyroidism 90533364 E89.0 TSH up to 9 with normal fT4 after having been off for couple of weeks.Curr ently on 200 but had been on 175. In past, was up to 13 on 175 but with increase to 200, now has TSH = 0.03 and high free T4 of 2.04. Takes T4 same time of day. Always takes with cup of coffee so no change in pattern. No obvious sx of excess T4 but given high free T4 level, will drop dose back to 175. Labs every 3 months. In past, had been on 125 x 2 pills for TTD of 250 but had high fT4 - did OK when went back to 175 mcg. Wants to use brand name for better consistenc y and also finds that her periods are much heavier on generic T4 and much better (less heavy) on Levoxyl. History of malignant neoplasm of thyroid 600686999 Z85.850 Right multifocal papillary in 2001 - 0.6cm largest with 5 other foci. otherwise clear. T1, Nx KOCH in 03/2002 and additional dose in 2003. TBS scan in 01/27 was negative and thyroglobu diogo level was <1 (at time TSH was 163). Thyroglobu diogo has been unmeasurab le. [id number] Maikol Villegas MD [facility], [address] [address] 02/03/2017 08:17:39 02/03/2017 09:12:26 Tobacco user 026557254 Z72.0 encourage smoking cessation. Postoperat bennett hypothyroidism 68287507 E89.0 TSH now down to 1.1 (02/08)- had been up to 12 when ran out.Contin ue on 175 and follow labs every 3 months. Takes T4 same time of day (AM).Alway s takes with cup of coffee (with milk) so no change in pattern. Labs every 3 months. Primary ma lignant neoplasm of thyroid gland 81887050 C73 Thyroglobu diogo has been unmeasurab le. Not included in 02/08 labs. Ask to add on. Cigarette smoker 7244549 7 F17.210 Using ecigs. Encouraged her efforts. [id number] Iwona Caro [facility], [address] [place] [address] 03/25/2018 08:35:54 03/25/2018 09:40:23 Primary malignant neoplasm of thyroid gland 43676805 C73 Right multifocal papillary in 2001 - 0.6 cm largest with 5 other foci. otherwise clear. T1, Nx KOCH in 03/2002 and additional dose in 2003. TBS scan in 01/27 was negative and thyroglobu diogo level was <1 (at time TSH was 163). Thyroglobu diogo has been unmeasurab le. Continue to monitor Tg levels yearly but she has done very well.- Will need Tg levels ordered in summer 2018. Tobacco user 440504199 Z 72.0 encourage smoking cessation. Postoperat bennett hypothyroidism 64074093 E89.0 On 175. TSH is 1.82 in 12/09. Goal would typically be to have this a bit lower since she has a hx of thyroid cancer but she has been doing well and is out from CA since 2001. Likely cigarettes contributi ng to increased metabolism of T4. If she stops smoking, would expect relative increase in available T4. Will continue on current dose (175) and monitor labs. Cigarette smoker 6999728 7 F17.210 Stopped e-cigs. Encouraged her to return to that. [id number] Maikol Villegas MD [facility], [address] [address] 12/28/2019 09:41:03 12/28/2019 21:24:39 Postoperative hypothyroidism 52857864 E89.0 On 175. Had been off for abouta week in spring and TSH was over 70. Back on and TSH down to 11 in 01/11. Previously TSH was 1.82 in 12/09. Goal would typically be to have this a bit lower since she has a hx of thyroid cancer but she has been doing well and is out from CA since 2001. Likely cigarettes contributi ng to increased metabolism of T4. If she stops smoking, would expect relative increase in available T4. Will continue on current dose (175) and monitor labs. May need a small dose increase if keeps smoking same amount (1ppd). Cigarette smoker 6028090 7 F17.210 Think about using nicorette mints. Tobacco user 235943270 Z 72.0 encourage smoking cessation. Primary ma lignant neoplasm of thyroid gland 29466700 C73 Right multifocal papillary in 2001 - 0.6 cm largest with 5 other foci. otherwise clear. T1, Nx KOCH in 03/2002 and additional dose in 2003. TBS scan in 01/27 was negative and thyroglobu diogo level was <1 (at time TSH was 163). Thyroglobu diogo has been unmeasurab le. 01/11: Of note, Tg low even when TSH had been elevated (up to 70 in September and still up at 11 in 12/11). Continue to monitor Tg levels yearly but she has done very well.Hope to get TSH down closer to LLN - Will need Tg levels ordered in summer 2020. [id number] Maikol Villegas MD [facility], [address] [address] 03/13/2021 14:41:59 03/14/2021 06:42:24 Postoperative hypothyroidism 68748556 E89.0 On 175. Fluctuatio ns in labs- likely due to combinatio n of taking in AM with coffee but even moreso, smoking.Bu t also not always taking meds consistent ly and doesn't get labs as ordered. Suggest she try taking 175 at HS. Will see if that helps stabilize dose. TSH= 1.34 (11/12); was 11.8 (12/11); was 70.5 (10/11)*;fT 4= 1.58 (11/12); was 1.43 (12/11); Goal would typically be to have this a bit lower since she has a hx of thyroid cancer but she has been doing well and is out from CA since 2001. Likely cigarettes contributi ng to increased metabolism of T4. If she stops smoking, would expect relative increase in available T4.Will try and have her take T4 at HS. Monitor labs. Tobacco user [id number] Z 72.0 encourage smoking cessation. Primary ma lignant neoplasm of thyroid gland 59692978 C73 Right multifocal papillary in 2001 - 0.6 cm largest with 5 other foci. otherwise clear. T1, Nx KOCH in 03/2002 and additional dose in 2003. TBS scan in 01/27 was negative and thyroglobu diogo level was <1 (at time TSH was 163). Thyroglobu diogo has been unmeasurab le even in setting omeasurabl e TSH. Tg low even when TSH had been elevated (up to 70 in September and still up at 11 in 12/11). Hope to get TSH down closer to LLN - Will need Tg levels ordered in summer 2020. Cigarette smoker 8228559 7 F17.210 Think about using nicorette mints. [id number] Maikol Villegas MD [facility], [address] [address] 08/20/2022 14:36:43 08/21/2022 14:36:22 Postoperative hypothyroidism 09421306 E89.0 On 175.Recent fluctuatio ns in labs- likely due to combinatio n of taking in AM with coffee but even moreso, smoking.Al though has been consistent with both. TSH= 2.43 (08/14): was 0.21 (03/15) was 10.5 (07/16); was 1.34 (11/12); was 11.8 (12/11); was 70.5 (10/11)*;fT 4= 1.79 (08/14) was 1.99 (03/15) was 1.66 (07/16); was 1.58 (11/12); was 1.43 (12/11); Goal is to have TSH lower but has been difficult. Likely cigarettes contributi ng to increased metabolism of T4. Monitor TFTs q 3 months. Tg in 11/14. Primary ma lignant neoplasm of thyroid gland 86579341 C73 Not controlled . Right multifocal papillary in 2001 - 0.6 cm largest with 5 other foci. otherwise clear. T1, Nx KOCH in 03/2002 and additional dose in 2003. TBS scan in 01/27 was negative and thyroglobu diogo level was <1 (at time TSH was 163). Thyroglobu diogo has been unmeasurab le even in setting omeasurabl e TSH. Tg low even when TSH had been elevated (up to 70 in September and still up at 11 in 12/11). TSH slightly increased to 2.43 (08/14): was 0.21 (03/15)Dos e has remained constant at 175Stay on same dose (175). Repeat labs in October 2022. Order Tg Hope to get TSH down closer to LLN (0.5-1.0) - Will order Tg levels for October 2022 with TFTs. Tobacco user 502072363 Z 72.0 encourage smoking cessation. Cigarette smoker 1951339 7 F17.210 Think about using nicorette mints. [id number] Maikol Villegas MD [facility], [address] [address] 08/19/2023 15:34:08 08/19/2023 17:24:10 Primary malignant neoplasm of thyroid gland 93037649 C73 Controlled but presence adds complexity to regimen. Right multifocal papillary in 2001 - 0.6 cm largest with 5 other foci. otherwise clear. T1, Nx KOCH in 03/2002 and additional dose in 2003. TBS scan in 01/27 was negative and thyroglobu diogo level was <1 (at time TSH was 163). Thyroglobu diogo has been unmeasurab le even in setting of measurable TSH. Tg low even when TSH had been elevated (up to 70 in September and still up at 11 in 12/11). TSH= 1.40 (05/16) was 8.8 (12/14)Dose has remained constant at 175No smoking x 1 year- vaping at present. - Stay on same dose (175). Monitor labs q 3 m.Order Tg q 6 months. Hope to get TSH down closer to LLN (0.5-1.0) Postoperat bennett hypothyroidism [id number] E89.0 On 175.Recent fluctuatio ns in labs- likely due to combinatio n of taking in AM with coffee but even moreso, smoking.Al though has been consistent with both. TSH= 2.43 (08/14): was 0.21 (03/15) was 10.5 (07/16); was 1.34 (11/12); was 11.8 (12/11); was 70.5 (10/11)*;fT 4= 1.79 (08/14) was 1.99 (03/15) was 1.66 (07/16); was 1.58 (11/12); was 1.43 (12/11); Goal is to have TSH lower but has been difficult. Likely cigarettes contributi ng to increased metabolism of T4. Monitor TFTs q 3 months. Tg in 11/14. Menopause [id number] N95. 1 c/o foggy brain and poor energy and weight gain.Encou rage f/u with [facility] or PCP re: HRT. Could be an option given age of 53. Could use for up to 5 years with minimal risk. Might end up wanting to do bone density prior to age 62 given (a) smoking hx and (b) use of thyroid.Sh e hasn't had consistent ly suppressed TSH but still might have impact on bones over time. Health Concerns Section Related Observation LastModified by Organization Detai ls LastModified Time None Recorded Concern Status LastModified by Organization Details LastModified Time None Recorded Advance Directives Directive None Recorded Payers Encounter Date Sequence Insurance Name Policy Number Policy Carrera Covered Member ID Carrera Member ID Guarantor Name 03/25/2018 1 [place] [facility] Aide Luna [id number] Aide Luna 03/25/2018 1 [facility] [id number] Aide Luna [id number] Aide Luna 12/28/2019 1 [place] [facility] [id number] Aide Luna [id number] Aide Luna 03/13/2021 1 [place] [facility] [id number] Aide Luna [id number] Aide Luna 08/20/2022 1 [place] [facility] [id number] Aide Luna [id number] Aide Luna 08/19/2023 1 [facility] ([facility] Aide Luna [id number] Aide Luna Notes Date Note Type Note Provider Name and Address Organization Details Recorded Time 03/25/2018 text/html ThyroidReported bypatient.Previous Evaluation:TSH: (1.82 (12/09); was 1.13 (02/08) -was 12 (10/08 when ran out); was 9.18 (12/07)- was 0.03 (11/06)_ was `13 (06/08)-); free T4: (1.61 (12/09);); TPO abs: (<20 in 02/08.); TG abs: ((-)); thyroglobulin: (<1 in 2018); total body scan thyrogen: 2004 (Multifocal papillary CA in 2001 with KOCH in 03/2002 and additional dose of 10 mCi in 2003. TBS scan in 01/27 was negative and thyroglobulin level was <1 (at time TSH was 163).) Treatment:levoxyl, dose: 175 mcg (was 200 mcg daily. Was on 175 daily- had been on 250 (125 x 2 tabs = 250 mcg) TTD but decreased.); I-131, dose: (2001 and 2003.) Monitoring and goals:TSH range (under 0.5.) Constitutional:no heat intolerance; no weight loss; no weight gain;cold intolerance; Energy OK. No complaints with fatigue. Eyes:no double vision; no dry eyes; Reading glasses. (sees Joseph) Neck:no difficulty swallowing; no masses;voice changes(chronic- started in high school (even before smoking). Always raspy, no different from prior to surgery.) Heart:no rapid heart rate; no palpitations; no chest pain; no tightness or pressure GI:no constipation; no diarrhea :normal menstrual periods; Periods generally monthly but none this month Neurological:no anxiety; no insomnia;tremor(chron ic)a/vmg-smoking [id number] bypatient.ImportanceO n a scale of 1-10 with 1 being not important and 10 being very important the patient rates importance of stopping smoking as 9 ConfidenceOn a scale of 1-10 with 1 being not confident and 10 being very confident the patient rates confidence on stopping smoking as 7 Readiness to quit smokingOn a scale of 1-10 with 1 being not ready and 10 being very ready the patient rates readiness to stop smoking as 8 Physiological Dependence/Health RiskCurrently smoking 10 cigarettes per day; Patient has first cigarette within 30 minutes after awakening Medication AssessmentHas used Patch in the past; Has used Chantix in the past (bad dreams.); Has used E-Cig in thr pastNotes:No cigarettes x 5 weeks. Using e-cigs. ROS: No fever or chills. No severe h/a. No SOB. No n/v or abdominal pain. No muscle aches/pains/cramping. No polyuria, polydipsia. No nocturia. No dizziness with standing. No unusual rashes or bruising.No hair or nail changes. Iwona huerta, [facility] 03/25/2018 09:40:09 12/28/2019 text/html ThyroidReported bypatient.Previous Evaluation:TSH: (11.8 (12/11); was 70.5 (10/11)*; was 1.82 (12/09); was 1.13 (02/08) -was 12 (10/08 when ran out); was 9.18 (12/07)- was 0.03 (11/06)_ was `13 (06/08)-); free T4: (1.43 (12/11); was 0.68 (10/11): was 1.61 (12/09);); TPO abs: (<20 in 02/08.); TG abs: ((-) in 2019;); thyroglobulin: (<1 in 2019); total body scan thyrogen: 2004 (Multifocal papillary CA in 2001 with KOCH in 03/2002 and additional dose of 10 mCi in 2003. TBS scan in 01/27 was negative and thyroglobulin level was <1 (at time TSH was 163).); TSH of 70 was after running out of med x 1 week (per pt) Treatment:levoxyl, dose: 175 mcg (was 200 mcg daily. Was on 175 daily- had been on 250 (125 x 2 tabs = 250 mcg) TTD but decreased.); I-131, dose: (2001 and 2003.); takes in AM with coffee with cream. Bkfst is late. Monitoring and goals:TSH range (under 0.5.) Constitutional:no cold intolerance; no heat intolerance; no weight gain;weight loss(10 since October (back on T4 and walking).); Energy better- back on T4 but aslo started walking again in October. Told of anemia- on Fe (early 2019). . Eyes:no double vision; no dry eyes; Reading glasses. (Joseph). Neck:no difficulty swallowing; no masses;voice changes(chronic- started in high school (even before smoking). Always raspy, no different from prior to surgery.) Heart:no rapid heart rate; no palpitations; no chest pain; no tightness or pressure GI:no constipation; no diarrhea :normal menstrual periods; Periods generally monthly. Neurological:no anxiety; no insomnia;tremor(chron ic mild.)Notes:No hair or nail changes.a/vmg-smoking [id number] bypatient.ImportanceO n a scale of 1-10 with 1 being not important and 10 being very important the patient rates importance of stopping smoking as 8 ConfidenceOn a scale of 1-10 with 1 being not confident and 10 being very confident the patient rates confidence on stopping smoking as 7 Readiness to quit smokingOn a scale of 1-10 with 1 being not ready and 10 being very ready the patient rates readiness to stop smoking as 7 Physiological Dependence/Health RiskCurrently smoking 20 cigarettes per day; Patient has first cigarette within 30 minutes after awakening Medication AssessmentHas used Patch in the past; Has used Chantix in the past (bad dreams.); Has used E-Cig in the pastNotes:Has nicorette mints- has them but not using. Has used e-cigs but heard they were bad. PCP: Anitha Hickey. Patient agreed to this visit via secure telehealth platform due to the COVID -19 pandemic. Patient understands this is a scheduled visit and the usual procedures with regard to billing and confidentiality apply. Patient was notified that the provider location [place] [facility] [place] During the visit the patient? s medical history and medical record were reviewed. The patient was notified to call our office for worsening or urgent symptoms. ROS: No fever or chills. No cough or SOB. No severe h/a. No n/v or abdominal pain. No muscle aches/pains/cramping. No polyuria, polydipsia. No nocturia. No dizziness with standing. No unusual rashes or itching or bruising. Maikol Villegas MD [address] [place] [address], [phone], [facility] 12/28/2019 10:32:30 03/13/2021 text/html ThyroidReported bypatient.Previous Evaluation:TSH: (1.34 (11/12); was 11.8 (12/11); was 70.5 (10/11)*; was 1.82 (12/09); was 1.13 (02/08) -was 12 (10/08 when ran out); was 9.18 (12/07)- was 0.03 (11/06)_ was `13 (06/08)-); free T4: (1.58 (11/12); was 1.43 (12/11); was 0.68 (10/11): was 1.61 (12/09);); TPO abs: (<20 in 02/08.); TG abs: ((-) in 2019;); thyroglobulin: (<1 in 2020); total body scan thyrogen: 2004 (Multifocal papillary CA in 2001 with KOCH in 03/2002 and additional dose of 10 mCi in 2003. TBS scan in 01/27 was negative and thyroglobulin level was <1 (at time TSH was 163).); TSH of 70 was after running out of med x 1 week (per pt) Treatment:levoxyl, dose: 175 mcg (daily (03/14); was was 200 mcg daily. Was on 175 daily- had been on 250 (125 x 2 tabs = 250 mcg) TTD but decreased.); I-131, dose: (2001 and 2003.); Takes in AM- takes with coffee with cream. Bkfst is late. Suggest taking at HS> Monitoring and goals:TSH range (under 0.5.) Constitutional:no cold intolerance; no heat intolerance; no weight loss; no weight gain; Energy tired lately past month. Told of anemia in past- on Fe (early 2019). Suggest update those labs. Eyes:no dry eyes; Reading glasses. (Joseph). Twitch in OS. random- not only at end of day. Neck:no difficulty swallowing; no masses;voice changes(chronic- raspy. started in high school (even before smoking). Always raspy, no different from prior to surgery.) Heart:no rapid heart rate; no palpitations; no chest pain; no tightness or pressure GI:no constipation; no diarrhea :normal menstrual periods; LMP 02/26/21; prior 4-5 months ago. Has hot flashes- better with fan on. Neurological:no anxiety; no insomnia (to bed 7-8PM. Wakes 5AM.);tremor(chronic mild.)Notes:No hair or nail changes. a/vmg-smoking [id number] bypatient.ImportanceO n a scale of 1-10 with 1 being not important and 10 being very important the patient rates importance of stopping smoking as 5; was 8 ConfidenceOn a scale of 1-10 with 1 being not confident and 10 being very confident the patient rates confidence on stopping smoking as 2; Was 7; Readiness to quit smokingOn a scale of 1-10 with 1 being not ready and 10 being very ready the patient rates readiness to stop smoking as 3; Was low in past. Physiological Dependence/Health RiskCurrently smoking 20 cigarettes per day; Patient has first cigarette within 30 minutes after awakening Medication AssessmentHas used Patch in the past; Has used Chantix in the past (bad dreams.); Has used E-Cig in the pastNotes:Had nicorette mints- found helpful in past. Gum- had vomiting.03/14: Smokes 1ppd. PCP: Anitha Hickey. ROS: No fever or chills. No cough or SOB. Some ANTOINE. No loss of taste/smell. No severe h/a. No n/v or abdominal pain. No muscle pains/cramping. No polyuria, polydipsia. No nocturia (1x) No dizziness with standing. No unusual rashes or itching or bruising. Maikol Villegas MD [address] [place] [address], [phone], [facility] 03/13/2021 15:38:55 08/20/2022 text/html ThyroidReported bypatient.Previous Evaluation:TSH: (2.43 (08/14): was 0.21 (03/15) was 1.34 (11/12); was 11.8 (12/11); was 70.5 (10/11)*; was 1.82 (12/09); was 1.13 (02/08) -was 12 (10/08 when ran out); was 9.18 (12/07)- was 0.03 (11/06)_ was `13 (06/08)-); free T4: (1.79 (08/14) was 1.99 (03/15) was 1.58 (11/12); was 1.43 (12/11); was 0.68 (10/11): was 1.61 (12/09);); TPO abs: (<20 in 02/08.); TG abs: ((-) in 2019;); thyroglobulin: (<1 in 2021); total body scan thyrogen: 2004 (Multifocal papillary CA in 2001 with KOCH in 03/2002 and additional dose of 10 mCi in 2003. TBS scan in 01/27 was negative and thyroglobulin level was <1 (at time TSH was 163).); TSH of 70 was after running out of med x 1 week (per pt) Treatment:levoxyl, dose: 175 mcg (daily (since 03/14); was was 200 mcg daily. Was on 175 daily- had been on 250 (125 x 2 tabs = 250 mcg) TTD but decreased.); I-131, dose: (2001 and 2003.); Takes in AM- takes with coffee with cream. Bkfst is late. Monitoring and goals:TSH range (under 0.5.) Constitutional:no cold intolerance; no heat intolerance (some hot flashes.); no weight loss; no weight gain; Energy: not great. usually lower in winter. Told of anemia in past- on Fe (early 2019). ? updated in 04/15. . Eyes:Blurry far and close (Joseph). Neck:no difficulty swallowing; no masses;voice changes(chronic- raspy. Started in high school (even before smoking). Always raspy, no different from prior to surgery.) Heart:no rapid heart rate; no palpitations; no chest pain; no tightness or pressure (Occ pressure. can be either at rest or with activity.) GI:no constipation; no diarrhea :normal menstrual periods; LMP: 02/26/21; Has hot flashes. Neurological:no tremor; no anxiety; no insomnia (wakes but back to sleep easily.)Notes:No hair or nail changes. a/vmg-smoking [id number] bypatient.ImportanceO n a scale of 1-10 with 1 being not important and 10 being very important the patient rates importance of stopping smoking as 6; was 5 was 8; ConfidenceOn a scale of 1-10 with 1 being not confident and 10 being very confident the patient rates confidence on stopping smoking as 6; Was 2 was 7; Readiness to quit smokingOn a scale of 1-10 with 1 being not ready and 10 being very ready the patient rates readiness to stop smoking as 6; Was 3 was low in past. Physiological Dependence/Health RiskCurrently smoking 20 cigarettes per day; Patient has first cigarette within 30 minutes after awakening Medication AssessmentHas used Patch in the past; Has used Chantix in the past (bad dreams.); Has used E-Cig in the pastNotes:Had nicorette mints- found helpful in past. Gum- had vomiting.03/14: Smokes 1ppd.08/14: Willing to try hypnosis. 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 ROS:No fever or chills.No SOB. Some ANTOINE (stairs).No severe h/a.No n/v or abdominal pain.No muscle pains/cramping.Joints not muscles.No polyuria (some in AM after coffee). No polydipsia. No nocturia (1x)No dizziness with standing. Maikol Villegas MD [address] [place] [address], [place], [phone], [facility] 08/20/2022 15:34:15 08/19/2023 text/html ThyroidReported bypatient.Previous Evaluation:TSH: (1.40 (05/16) was 8.8 (12/14) was 2.43 (08/14): was 0.21 (03/15) was 1.34 (11/12); was 11.8 (12/11); was 70.5 (10/11)*; was 1.82 (12/09); was 1.13 (02/08) -was 12 (10/08 when ran out); was 9.18 (12/07)- was 0.03 (11/06)_ was `13 (06/08)-); free T4: (1.51 (05/16) was 1.07 (12/14) was 1.79 (08/14) was 1.99 (03/15) was 1.58 (11/12); was 1.43 (12/11); was 0.68 (10/11): was 1.61 (12/09);); TPO abs: (<20 in 02/08.); TG abs: ((-) since 2019;); thyroglobulin: (<0.1 since 2015 (even when TSH above 5)); total body scan thyrogen: 2004 (Multifocal papillary CA in 2001 with KOCH in 03/2002 and additional dose of 10 mCi in 2003. TBS scan in 01/27 was negative and thyroglobulin level was <1 (at time TSH was 163).); TSH of 70 was after running out of med x 1 week (per pt) Treatment:levoxyl, dose: 175 mcg (daily (since 03/14); was was 200 mcg daily. Was on 175 daily- had been on 250 (125 x 2 tabs = 250 mcg) TTD but decreased.); I-131, dose: (2001 and 2003.); Takes in AM- takes with coffee with cream. Bkfst is late. Monitoring and goals:TSH range (under 0.5.) Constitutional:no cold intolerance; no heat intolerance; no weight loss; no weight gain; WEIGHT: 165 (08/15@home); 08/15: 10-15# more since 2022. Energy: Not great. Usually lower in winter. No anemia (05/16- PVIX). Neck:no difficulty swallowing; no masses;voice changes(chronic- raspy. Started in high school (even before smoking). Always raspy, no different from prior to surgery.) Heart:no rapid heart rate; no palpitations; no chest pain; no tightness or pressure; . GI:no constipation; no diarrhea :abnormal menstrual periods; LMP: 02/26/21; Neurological:no tremor (mild but no change.); no anxiety; no insomnia; Not nervous/jittery. Feels tired when first wakes up. PCP: Marj Zhang ([facility]). but she will be leaving. Follow-Up: hypothyroidismFollow- Up: primary malignant neoplasm of thyroid glandFollow-Up: postoperative hypothyroidismFollow- Up: tobacco user PAST MEDICAL Hx (updated):Right multifocal papillary in 2001 - 0.6cm largest with 5 other foci. otherwise clear. T1, Nx KOCH in 03/2002 and additional dose of 10 mCi in 2003. TBS scan in 01/27 was negative and thyroglobulin level was <1 (at time TSH was 163).COVID in 01/13- tired.08/15: Right foot- big toe- put titanium ball placed. SOCIAL Hx (updated):04/11- Back to smoking. <1ppd. 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 Not exercising.Vaping, not smoking, since 09/14.Engaged x 18 years- might get after 20 years. FAMILY Hx (updated):12/2019 - Sister with breast cancer, surgery in May 2019.Kids OK- 23 y.o. 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 (phys scie and movement).08/15:Son getting at [employer]- likes her. 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 [place].Daughter in [facility] (near [place]). [place] for [place]. ROS:No fever or chills.No SOB. Some ANTOINE (stairs).No severe h/a.No n/v or abdominal pain.No muscle pains/cramping.No polyuria (some in AM after coffee). Little more lately (08/15) at q 60-90 minutes. BG < 100 in 05/16. No polydipsia. No nocturia (1x)No dizziness with standing. Maikol Villegas MD [address] [place] [address], [phone], [facility] 08/19/2023 16:16:57 OBGyn Episode No OBEpisode recorded.
== END 2024-06-15 13:10 | disposition home or self-care (01) ==
PROVIDERS: PCP Internal Medicine; Visit Provider Student in an Organized Health Care Education/Training Program
DX: M25.50 Pain in unspecified joint (principal); M19.041 Primary osteoarthritis, right hand; M19.042 Primary osteoarthritis, left hand
CPT/HCPCS: 99204

== ENCOUNTER 2024-06-15 12:26 | Outpatient (REF) | payer BC, SELFPAY ==
--- NOTE | ~2024-06-15 | XR_ITS ---
EXAMINATION: XR FOOT, LEFT CLINICAL INFORMATION: M25.50 - Pain in unspecified joint COMPARISON: None available. TECHNIQUE: AP, lateral, and oblique views of the left foot. FINDINGS: The bones and soft tissues are normal. No fracture. Alignment is anatomic. Joint spaces are maintained. XR/XR foot LT min 3V IMPRESSION: Unremarkable left foot exam. Electronically signed by: Satinder Morgan MD 06/15/2024 02:07 PM CHARLINE
--- NOTE | ~2024-06-15 | XR_ITS ---
EXAMINATION: XR FOOT, RIGHT CLINICAL INFORMATION: M25.50 - Pain in unspecified joint COMPARISON: None available. TECHNIQUE: AP, lateral, and oblique views of the right foot. FINDINGS: There is partial prosthesis along the proximal phalanx head first digit in satisfactory alignment with gross metatarsal head. The joint spaces are preserved. No free acute fracture or lytic process seen. The ankle mortise and subtalar joints are normal. XR/XR foot RT min 3V IMPRESSION: Prosthesis proximal phalangeal head was digit in satisfactory alignment. Otherwise rest of the right foot is unremarkable. Electronically signed by: Satinder Morgan MD 06/15/2024 02:08 PM EST
--- NOTE | ~2024-06-15 | XR_ITS ---
EXAMINATION: XR HAND/WRIST, RIGHT CLINICAL INFORMATION: M25.50 - Pain in unspecified joint COMPARISON: None available. TECHNIQUE: Four views of the right hand and wrist. FINDINGS: The bones and soft tissues are normal. No fracture. Alignment is anatomic. Joint spaces are maintained. No erosions or soft tissue calcifications. XR/XR hand wrist RT IMPRESSION: Unremarkable right hand and wrist exam. Electronically signed by: Satinder Morgan MD 06/15/2024 02:06 PM CHARLINE NICHOLS
--- NOTE | ~2024-06-15 | XR_ITS ---
EXAMINATION: XR HAND/WRIST, LEFT CLINICAL INFORMATION: M25.50 - Pain in unspecified joint COMPARISON: None available. TECHNIQUE: PA, lateral, and oblique views of the left hand and wrist. FINDINGS: The bones and soft tissues are normal. No fracture. Alignment is anatomic. Mild loss of PIP and DIP joint spaces seen. No bony erosive changes. There is minimal periarticular spurring DIP joint second digit. The soft tissues are normal. There is a negative ulnar variance. XR/XR hand wrist LT IMPRESSION: Mild degenerative changes PIP and DIP joints with periarticular spurring DIP joint joint second digit. No acute fracture or dislocation Electronically signed by: Satinder Morgan MD 06/15/2024 02:10 PM EST
[2024-06-15 13:28] LABS: MANUAL DIFF FLAG NO
[2024-06-15 13:53] LABS: Basophils Percent Auto 0.4 % (0-2); Eosinophils Absolute Auto 0.2 X10*3/uL (0.0-0.4); Eosinophils Percent Auto 2.5 % (0-4); Hematocrit 41.4 % (37.0-47.0); Hemoglobin 13.9 g/dl (12.0-16.0); Imm Gran Abs Auto 0.02 X10*3/uL (0.00-0.03); Imm Gran Pct Auto 0.3 % (0.0-0.4); Lymphocytes Absolute Auto 2.9 X10*3/uL (1.2-4.9); Lymphocytes Percent Auto 41.9 % (20-40); Mean Corpuscular HGB Conc 33.6 g/dl (31.0-35.0); Mean Corpuscular Hemoglobin 29.8 pg (27.0-33.0); Mean Corpuscular Volume 88.8 fL (80.0-98.0); Mean Platelet Volume 10.4 fL (9.4-12.3); Monocytes Absolute Auto 0.5 X10*3/uL (0.1-1.2); Monocytes Percent Auto 7.7 % (2-11); Neutrophils Absolute Auto 3.3 x10*3/uL (2.0-8.3); Neutrophils Percent Auto 47.2 % (45-73); Platelet Count 281 X10*3/uL (160-400); Red Blood Count 4.66 X10*6/uL (4.20-5.50); Red Cell Distribution Width 13.6 % (11.0-16.0); White Blood Count 6.9 X10*3/uL (4.8-10.8)
[2024-06-15 14:39] LABS: Alanine Aminotransferase 39 U/L (0-31); Albumin Level 4.6 g/dL (3.5-5.0); Alkaline Phosphatase 82 U/L (39-117); Anion Gap 11 (12-20); Aspartate Amino Transferase 26 U/L (5-31); Bilirubin Total 0.3 mg/dL (0.0-1.0); Blood Urea Nitrogen 12 mg/dL (9-16); C Reactive Protein 0.16 mg/dL (< or = 0.50); Calcium 10.2 mg/dL (8.4-10.2); Carbon Dioxide 28 mmol/L (22-29); Chloride 104 mmol/L (96-108); Estimated Glomerular Filt Rate > 60; Glucose Random 86 mg/dL (60-115); Potassium 3.6 mmol/L (3.3-5.1); Sodium 139 mmol/L (135-145); Total Protein 8.3 g/dL (6.5-8.0)
[2024-06-15 14:53] LABS: Erythrocyte Sedimentation Rate 13 MM/HR (0-20)
[2024-06-15 15:01] LABS: Free T4 (Free Thyroxine) 1.44 ng/dL (0.71-1.85); Thyroid Stimulating Hormone 0.09 uIU/mL (0.32-4.0)
--- OUTSIDE RECORDS SUMMARY | 2024-06-15 15:22 | XMS_ITS | Data Portability ---
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 Plan of Treatment Reminders Order Date Submit Date Provider Last Modified By Organization Details Last Modified Time Details Appointments None recorded. Lab cytology report, thin prep, smear or scraping, cervical or vaginal 2023 024 [employer] [facility], [address] [place], [address], 4 12:07:00 estradiol, serum 2023 024 [employer] [facility], [address] [place], [address], 4 10:06:38 FSH (follicle- stimulatin g hormone), serum 2023 024 [facility], [address] [place], [address], 4 10:06:40 hemoglobin , gastrointe stinal, stool 2023 024 [email or web address] 1 In-Office Order, Internal Use Only DO Not Attach Compendium DO Not Attach Compendium, Do Not Delete/merge, [id number] 4 13:33:18 ca 125, serum 2023 024 [facility], [address] [place], [address], 4 08:09:06 estradiol, serum 2023 024 [place] [facility], [address] [place], [address], 4 08:09:06 anti-mulle melodie hormone (amh), serum 2023 024 [place] [facility], [address] [place], [address], 4 08:09:07 inhibin A + B panel, serum or plasma 2023 024 [place] [facility], [address] [place], [address], 4 16:06:44 biopsy, endometria l 2023 024 [facility], [address] [place], [address], 4 07:34:58 test, urine 2023 024 [email or web address] 1 In-Office Order, Internal Use Only DO Not Attach Compendium DO Not Attach Compendium, Do Not Delete/merge, [id number] 4 09:56:11 Referral gynecologi c surgery referral - 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 Imaging MAMMO, screening, digital, bilateral - Breast Aspiration and/or Biopsy if needed 2023 024 sharad [facility], [address], [address], [place], [address], 14:20:33 MRI, pelvis, w/ contrast - hypoechoic enlargemen t of right ovary, question possible fibroma, also has post menopausal bleeding and thickened endometriu m 2023 024 [email or web address] [facility] ([facility]), [address], [place], [address], 07:35:14 Medication Orders None recorded. Patient TargetsNo targets recorded. Patient Instructions Encounter Date Encounter Id Patient Instructions Last Modified By Organization Details Last Modified Time 09/07/2023 [id number] learning about healthy weight Not available 09/07/2023 13:13:23 vaginal bleeding after menopause: care instructions Not available 09/07/2023 13:13:40 She is here as a new patient for routine annual. She has not had a card hanger exam in many, many years . She [...] the breast. Not available 09/07/2023 13:53:01 10/13/2023 [id number] vaginal bleeding after menopause: care instructions Not [...] routine annual. She has not had a card hanger exam in many, many years . She [...] if so should she see a regular card hanger, or a card hanger onc. Face to face discussion 30 minutes laura Not available 10/13/2023 08:39:44 10/20/2023 [id number] postmenopausal bleeding information [email or web address] Not available 10/20/2023 [...] routine annual. She has not had a card hanger exam in many, many years . She [...] stable. [email or web address] Not available 10/20/2023 09:54:55 11/04/2023 [id number] back pain: care instructions laura Not available [...] routine annual. She has not had a card hanger exam in many, many years . She [...] REPAI R ARE PRESE NT. Not Available [address], [address], 09/11/2023 12:06:59 09/07/19 24 09/11/2023 IGP, RFX APTIM A HPV ASCU specimen adequacy: Commen t Satis facto ry for evalu ation . Endoc ervic al and/o r squam ous metap lasti c cells (endo cervi tha compo nent) are prese nt. Not Available [address], [address], 09/11/2023 12:06:59 09/07/19 24 09/11/2023 IGP, RFX APTIM A HPV ASCU clinician provided ICD10: Zaira t Z01.4 19 N95.0 Not Available [address], [address], 09/11/2023 12:06:59 09/07/19 24 09/11/2023 IGP, RFX APTIM A HPV ASCU performed by: Zaira Hooper il, Cytot echno logis t (ASCP ) Not Available [address], [address], 09/11/2023 12:06:59 09/07/19 24 09/11/2023 IGP, RFX APTIM A HPV ASCU electronical ly signed by: Zaira rios MD, Patho logis t Not Available [address], [address], 09/11/2023 12:06:59 09/07/19 24 09/11/2023 IGP, RFX APTIM A HPV ASCU . . Not Available [address], [address], 09/11/2023 12:06:59 09/07/19 24 09/11/2023 IGP, RFX [...] repor ts do occur . Not Available [address], [address], 09/11/2023 12:06:59 09/07/19 24 09/11/2023 IGP, RFX APTIM A HPV ASCU test methodology: Zaira manning This liqui d based ThinP rep(R ) pap test was scree ulises with the use of an image guide rupal armijo. Not Available [address], [address], 09/11/2023 12:06:59 09/07/19 24 09/11/2023 IGP, RFX APTIM A HPV ASCU . Commen t The HPV DNA refle x crite tanika were not met with this speci men resul t there fore, no HPV testi ng was perfo rmed. Not Available [address], [address], 09/11/2023 12:06:59 09/07/19 24 09/07/2023 hemog lobin , gastr ointe mariano l, stool Occult Blood negati ve Not Available In-Office Order Internal Use Only DO Not Attach Compendium DO Not Attach Compendium, Do Not Delete/merge, [id number] 09/07/2023 11:08:14 09/08/19 24 09/09/2023 ESTRA DIOL estradiol 63.1 pg/mL Adult Femal e Range Folli cular phase 12.5 - 166.0 Ovula tion phase 85.8 - 498.0 Lutea l phase 43.8 - 211.0 Postm enopa usal <6.0 - 54.7 Pregn delilah 1st trime ster 215.0 - >4300 .0 Amor ECLIA metho dolog y Not Available [facility] ([facility]) [address], [place], [address], 09/09/2023 10:06:38 09/08/19 24 09/09/2023 FSH FSH 41.7 mIU/m L Adult Femal e Range Folli cular phase 3.5 - 12.5 Ovula tion phase 4.7 - 21.5 Lutea l phase 1.7 - 7.7 Postm enopa usal 25.8 - 134.8 Not Available [facility] ([facility]) [address], [place], [address], 09/09/2023 10:06:40 10/14/19 24 10/15/2023 CANCE R ANTIG EN (CA) 125 cancer antigen (Ca) 125 13.1 U/mL 0.0-38 .1 Amor Diagn ostic s Elect amor milum inesc ence Immun oassa y (ECLI A) Value s obtai ulises with diffe rent assay metho ds or kits canno t be used inter hurtado eably . Resul ts canno t be inter prete d as absol merary evide nce of the prese nce or absen ce of jennifer neumann se. Not Available [facility] ([facility]) [address], [place], [address], 10/15/2023 08:09:05 10/14/19 24 10/15/2023 ESTRA DIOL estradiol 60.1 pg/mL Adult Femal e Range Folli cular phase 12.5 - 166.0 Ovula tion phase 85.8 - 498.0 Lutea l phase 43.8 - 211.0 Postm enopa usal <6.0 - 54.7 Pregn delilah 1st trime ster 215.0 - >4300 .0 Amor ECLIA metho dolog y Not Available [facility] ([facility]) [address], [place], [address], 10/15/2023 08:09:06 10/14/19 24 10/15/2023 ANTI- MULLE [...] oassa y (ECLI A) value s obtai ulises with diffe rent assay [...] Sarah napol is, [place]. Not Available [facility] ([facility] [address], [place], [address], 10/15/2023 08:09:07 10/14/19 24 10/20/2023 INHIB IN [...] or kits canno t be used inter [facility] . Not Available [facility] ([facility] [address], [place], [address], 10/22/2023 16:06:44 10/14/19 24 10/22/2023 INHIB IN [...] or kits canno t be used inter [facility] . Not Available [facility] ([facility] [address], [place], [address], 10/22/2023 16:06:44 10/20/19 24 10/20/2023 [facility] [...] d out by: Vinnie Holland M.D. / [facility] Clini tha Histo ry: 53-ye ar-ol [...] [address] [place] (CLIA #[id number]). Its perfo rmanc e joshua cteri stics deter mined by [facility]. Bladimir Holder M.D. Medic al Direc tor of Surgi tha Patho Robson orr M.D. Medic al Direc tor Cytop athol ogy Phone #: [phone], On-Ca ll Patho logis t: [id number] Not Available [facility] [address] [place], [address], 10/26/2023 14:23:54 10/20/19 24 10/20/2023 pregn delilah test, urine HCG negati ve Not Available In-Office Order Internal Use Only DO Not Attach Compendium DO Not Attach Compendium, Do Not Delete/merge, [id number] 10/20/2023 09:56:02 10/06/19 24 10/05/2023 US, pelvi s, trans abdom inal + trans vagin al No observ ation record ed. [email or web address] Not Available 2023 08:52:43 10/30/19 24 10/29/2023 MRI, pelvi s, w/ contr ast No observ ation record ed. [facility] [address] [facility], [place], [address], 11/04/2023 10:15:35 Result Notes None recorded. Problems Name Problem SNOMED Code Status Onset Date Resolution Date Notes Provider Name and Address Organization Details Recorded Time Mass of right ovary 1434161401059 9102 Active 2023 Roslyn Brandon MD [address], [place], [address], [place] - [facility], 4 11:14:14 Dyspareunia 19807433 Active 2023 Roslyn Brandon MD [address], [place], [address], [place] [facility], 4 11:14:26 Backache 040000870 Active 2023 Roslyn Brandon MD [address], [place], [address], [place] [facility], 4 11:14:33 Genuine stress incontinenc e 17396394 Active 2023 Roslyn Brandon MD [address], [place], [address], [place] [facility], 4 11:14:41 Problem Notes None recorded. Procedures Surgical History Date Name Laterality Status Provider Name and Address Organization Details Recorded Time Endometrial Biopsy completed Roslyn Brandon MD [address] [facility],[address], [place], [address], [place] [facility], 10/20/2023 09:55:35 Removal of thyroid completed ca may [place] - [facility], 09/07/2023 11:18:19 cone biopsy completed Roslyn Brandon MD [address], [place], [address], [place] [facility], 09/07/2023 13:33:08 Imaging Results Imaging Date Name Status LastModified by Organization Details LastModified Time 10/05/2023 US, pelvis, transabdominal + transvaginal completed Information not available 10/07/2023 08:52:43 10/29/2023 MRI, pelvis, w/ contrast completed [facility] [address] [place], [address], 11/04/2023 10:15:35 Procedure Notes None recorded. Medical [...] Updated DateTime 4 160.02 cm 29.4 kg/m2 03390.0 5 g 98 [degF] 88 /min 160 mm[Hg] 74 mm[Hg] ca Pandey in [facility], 4 11:09:21 Date Recorded Body height Provider Name an d Address Organization Details Last Updated DateTime 09/15/2023 160.02 cm Flor arizmendi in [facility], 09/15/2023 09:49:48 Date Recorded Body height Body mass index (BMI) Body weight Body temperature Heart rate Systolic blood pressure Diastolic blood pressure Provider Name and Address Organization Details Last Updated DateTime 4 160.02 cm 29.3 kg/m2 60865.4 6 g 97.1 [degF] 95 /min 170 mm[Hg] 77 mm[Hg] Flor Pandey in [facility], 4 08:00:59 Date Recorded Body height Body mass index (BMI) Body weight Heart rate Body temperature Systolic blood pressure Diastolic blood pressure Provider Name and Address Organization Details Last Updated DateTime 4 160.02 cm 29.2 kg/m2 15950.3 g 84 /min 97.2 [degF] 147 mm[Hg] 71 mm[Hg] Flor Pandey in [facility], 4 09:06:06 Date Recorded Body height Body mass index (BMI) Body weight Heart rate Systolic blood pressure Diastolic blood pressure Provider Name and Address Organization Details Last Updated DateTime 4 160.02 cm 29.1 kg/m2 12270.1 5 g 79 /min 151 mm[Hg] 71 mm[Hg] ca Pandey in [facility], 4 09:29:36 Social History Question Answer Notes LastModified by Organizat ion Details LastModified Time Tobacco Smoking Status Former Smoker [place] flores in [facility], 09/07/2023 11:16:21 What Is Your Level Of [...] Or The Highest Degree You Have Received? [id number] Information not available 09/07/2023 Who Is Your Employer? [employer] Information not available 09/07/2023 What Is [...] Anxious, Or Unable To Sleep At Night)? [id number] Information not available 09/07/2023 Do You Use [...] for MyRisk panel N Autoimmune Condition N Kidney or Bladder Problems N Thyroid Problems N Depression N Lung Disease N GI Problems N Defects or Inherited Disease N Anemia N History of Ovarian Cancer N History of Breast Cancer N RANDAL exposure N BRCA testing in past N Osteopenia N Psychiatric Illness N Anxiety Disorder N Diabetes N Arthritis Y Headaches or Migraines N Infertility N Asthma N History of Cancer N Endometriosis N Hepatitis N Heart Disease N Hypertension [...] SNOMED-CT Code Diagnosis ICD10 Code Diagnosis Note [id number] MD ROSLYN Mitchell MD [address] [facility] [place] [address] 09/07/2023 11:02:41 09/07/2023 14:20:33 Specialized medical examination [id number] Z01.419 Screening for malignant neoplasm of rectum 483605807 Z12.12 Screening mammography 24 768278 Z12.31 Postmenopa usal bleeding 28436782 N95.0 132149 MD ROSLYN Mitchell MD [address] [place] [address],[facility] [place] [address] 09/15/2023 09:36:13 09/15/2023 15:31:58 [id number] MD ROSLYN Mitchell MD [address] [place] [address],[facility] [place] [address] 10/13/2023 07:57:51 10/13/2023 10:20:35 Mass of right ovary 0990296997 0278019 R19.09 Postmenopa usal bleeding 85828523 N95.0 Endometrium thickened 44 2850510 R93.89 [id number] MD ROSLYN Mitchell MD [address] [place] [address],[facility] [address] 10/20/2023 08:58:42 10/20/2023 12:04:56 Postmenopausal bleeding 45628424 N95.0 [id number] MD ROSLYN Mitchell MD [address] [place] [address],[facility] [place] [address] 11/04/2023 09:24:21 11/04/2023 11:55:47 Mass of right ovary 3356144515 8329873 R19.09 Dyspareunia 92453311 N94 .[address] ress incontinence 68605356 N39.3 Backache 195567635 M54.9 Health Concerns Section Related Observation LastModified by Organization Detai ls LastModified Time None Recorded Concern Status LastModified by Organization Details LastModified Time None Recorded Advance Directives Directive None Recorded Payers Encounter Date Sequence Insurance Name Policy Number Policy Carrera Covered Member ID Carrera Member ID Guarantor Name 09/07/2023 1 [facility] [place] Aide Luna [id number] Aide Luna 09/15/2023 1 [facility]) Aide Luna [id number] Aide Luna 10/13/2023 1 [facility]) Aide Luna [id number] Aide Luna 10/20/2023 1 [facility] [place] Aide Luna [id number] Aide Luna 11/04/2023 1 [facility] ([facility] [place] Aide Luna [id number] Aide Luna Notes Date Note Type Note Provider Name and Address Organization Details Recorded Time 09/07/2023 text/html She is here as a new patient for routine annual. She has not had a card hanger exam in many, many years . She had her last menses more than 2 years ago, however last week she began moderately red vaginal bleeding that lasted 7 days, now resolved. 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 with Dr. Pham. Roslyn Brandon MD [address] [place] [address],[address], [place], [address], [facility], 09/07/2023 13:53:23 10/13/2023 text/html She [...] routine annual. She has not had a card hanger exam in many, many years .She had [...] she is interested. Roslyn Brandon MD [address] [facility],[address], [place], [address], [place] [facility], [...] routine annual. She has not had a card hanger exam in many, many years .She had [...] she is interested. Roslyn Brandon MD [address], [place], [address], [place] - [facility], 10/20/2023 09:56:29 11/04/2023 text/html She is here [...] routine annual. She has not had a card hanger exam in many, many years .She had [...] she is interested. Roslyn Brandon MD [address], [place], [address], [place] - [facility], 11/04/2023 11:19:23 OBGyn Episode No OBEpisode recorded.
[2024-06-16 08:17] LABS: HBS Num1 28.55 mIU/mL (0-7.99); HBc Num1 0.07 S/CO (0.00-0.79); HBsAGNum1 0.36 S/CO (0.00-0.99); Hepatitis A Antibody IgM 0.15 Index (0-0.79); Hepatitis B Core Antibody Nonreactive (Nonreactive); Hepatitis B Surface Antigen Negative (Negative); ~Hepatitis A Antibody IgM Nonreactive (Nonreactive); ~Hepatitis B Surface Antibody REACTIVE (Nonreactive); ~Hepatitis C Antibody Nonreactive (Nonreactive)
[2024-06-19 15:38] LABS: Vitamin D 25-OH, D2 <4 ng/mL; Vitamin D 25-OH, D3 17 ng/mL; Vitamin D 25-OH, Total 17 ng/mL (30-100)
[2024-06-20 14:39] LABS: Cyclic Citrullinated Peptide <16 UNITS
[2024-06-21 11:48] LABS: Prot Elec - Alpha1 0.3 g/dL (0.2-0.3); Prot Elec - Alpha2 0.8 g/dL (0.5-0.9); Prot Elec - Beta 1 0.5 g/dL (0.4-0.6); Prot Elec - Beta 2 0.4 g/dL (0.2-0.5); Prot Elec - Gamma 1.3 g/dL (0.8-1.7); Prot Elec - Total Protein 8.3 g/dL (6.1-8.1)
[2024-06-21 14:48] LABS: IgA 313 mg/dL (47-310); IgG 1306 mg/dL (600-1640); IgM 142 mg/dL (50-300)
== END 2024-06-15 12:27 | disposition home or self-care (01) ==
LOC: HO.XRAY 12:26
PROVIDERS: PCP Internal Medicine; Visit Provider Student in an Organized Health Care Education/Training Program
DX: M25.522 Pain in left elbow (principal); M25.521 Pain in right elbow; M25.532 Pain in left wrist; M25.531 Pain in right wrist; M19.041 Primary osteoarthritis, right hand; M19.042 Primary osteoarthritis, left hand; M79.645 Pain in left finger(s); M79.644 Pain in right finger(s); M25.552 Pain in left hip; M25.551 Pain in right hip; M79.672 Pain in left foot; M79.671 Pain in right foot; E89.0 Postprocedural hypothyroidism; I10 Essential (primary) hypertension
CPT/HCPCS: 36415; 73110; 73130; 73630; 80053; 82306; 82784; 84165; 84439; 84443; 85025; 85652; 86140; 86200; 86334; 86704; 86706; 86709; 86803; 87340

== ENCOUNTER → 2024-06-15 13:29 | Outpatient (BNV) | payer BC, SELFPAY | PROVIDERS: PCP Internal Medicine; Visit Provider Radiology Diagnostic Radiology | DX: M79.641 Pain in right hand (principal); M79.642 Pain in left hand; M79.671 Pain in right foot; M79.672 Pain in left foot | CPT/HCPCS: 73110; 73130; 73630 ==

== ENCOUNTER 2024-06-27 09:15 | Outpatient (REF) | payer BC, SELFPAY ==
--- OUTSIDE RECORDS SUMMARY | 2024-06-27 09:35 | XMS_ITS | Data Portability ---
Author Organization [place] [facility],, ROSLYN BRANDON MD Address [address] [address] Care Team Providers Care Archeologist Classical Name Role Phone ElaFUNK JOHN Primary Care Provider [phone] Assessment No assessment recorded. Plan of Treatment Reminders Order Date Submit Date Provider Last Modified By Organization Details Last Modified Time Details Appointments None recorded. Lab cytology report, thin prep, smear or scraping, cervical or vaginal 2023 024 [facility], [address] [place], [address], 4 12:07:00 estradiol, serum 2023 024 [facility], [address] [place], [address], 4 10:06:38 FSH (follicle- stimulatin g hormone), serum 2023 024 [facility], located within [facility], [address] [place], [address], 4 10:06:40 hemoglobin , gastrointe stinal, stool 2023 024 [email or web address] 1 In-Office Order, Internal Use Only DO Not Attach Compendium DO Not Attach Compendium, Do Not Delete/merge, [id number] 4 13:33:18 ca 125, serum 2023 024 [facility], located within [facility], [address] [place], [address], 4 08:09:06 estradiol, serum 2023 024 LEGGETT [facility], [address] [place], [address], 4 08:09:06 anti-mulle melodie hormone (amh), serum 2023 024 LEGGETT [facility], [address] [place], [address], 4 08:09:07 inhibin A + B panel, serum or plasma 2023 024 LEGGETT [facility], [address] [place], [address], 4 16:06:44 biopsy, endometria l 2023 024 [facility], [address] [place], [address], 4 07:34:58 test, urine 2023 024 [email or web address] 1 In-Office Order, Internal Use Only DO Not Attach Compendium DO Not Attach Compendium, Do Not Delete/merge, [id number] 4 09:56:11 Referral gynecologi c surgery referral - 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 Imaging MAMMO, screening, digital, bilateral - Breast Aspiration and/or Biopsy if needed 2023 024 sharad [facility], [address], [address], [place], [address], 14:20:33 MRI, pelvis, w/ contrast - hypoechoic enlargemen t of right ovary, question possible fibroma, also has post menopausal bleeding and thickened endometriu m 2023 024 [email or web address] [facility] [address], [place], [address], 07:35:14 Medication Orders None recorded. Patient TargetsNo targets recorded. Patient Instructions Encounter Date Encounter Id Patient Instructions Last Modified By Organization Details Last Modified Time 09/07/2023 [id number] learning about healthy weight Not available 09/07/2023 13:13:23 vaginal bleeding after menopause: care instructions Not available 09/07/2023 13:13:40 She is here as a new patient for routine annual. 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 She [...] the breast. Not available 09/07/2023 13:53:01 10/13/2023 [id number] vaginal bleeding after menopause: care instructions Not [...] routine annual. 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 She [...] if so should she see a regular pharmacy technician inpatient, or a pharmacy technician inpatient onc. Face to face discussion 30 minutes laura Not available 10/13/2023 08:39:44 10/20/2023 [id number] postmenopausal bleeding information [email or web address] Not available 10/20/2023 [...] routine annual. 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 She [...] stable. [email or web address] Not available 10/20/2023 09:54:55 11/04/2023 [id number] back pain: care instructions laura Not available [...] routine annual. 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 She [...] REPAI R ARE PRESE NT. Not Available [address], [address], 09/11/2023 12:06:59 09/07/19 24 09/11/2023 IGP, RFX APTIM A HPV ASCU specimen adequacy: Commen t Satis facto ry for evalu ation . Endoc ervic al and/o r squam ous metap lasti c cells (endo cervi tha compo nent) are prese nt. Not Available [address], [address], 09/11/2023 12:06:59 09/07/19 24 09/11/2023 IGP, RFX APTIM A HPV ASCU clinician provided ICD10: Zaira t Z01.4 19 N95.0 Not Available [address], [address], 09/11/2023 12:06:59 09/07/19 24 09/11/2023 IGP, RFX APTIM A HPV ASCU performed by: Zaira Hooper il, Cytot echno logis t (ASCP ) Not Available [address], [address], 09/11/2023 12:06:59 09/07/19 24 09/11/2023 IGP, RFX APTIM A HPV ASCU electronical ly signed by: Zaira rios MD, Patho logis t Not Available [address], [address], 09/11/2023 12:06:59 09/07/19 24 09/11/2023 IGP, RFX APTIM A HPV ASCU . . Not Available [address], [address], 09/11/2023 12:06:59 09/07/19 24 09/11/2023 IGP, RFX [...] repor ts do occur . Not Available [address], [address], 09/11/2023 12:06:59 09/07/19 24 09/11/2023 IGP, RFX APTIM A HPV ASCU test methodology: Zaira manning This liqui d based ThinP rep(R ) pap test was scree ulises with the use of an image guide rupal armijo. Not Available [address], [address], 09/11/2023 12:06:59 09/07/19 24 09/11/2023 IGP, RFX APTIM A HPV ASCU . Commen t The HPV DNA refle x crite tanika were not met with this speci men resul t there fore, no HPV testi ng was perfo rmed. Not Available [address], [address], 09/11/2023 12:06:59 09/07/19 24 09/07/2023 hemog lobin , gastr ointe mariano l, stool Occult Blood negati ve Not Available In-Office Order Internal Use Only DO Not Attach Compendium DO Not Attach Compendium, Do Not Delete/merge, [id number] 09/07/2023 11:08:14 09/08/19 24 09/09/2023 ESTRA DIOL estradiol 63.1 pg/mL Adult Femal e Range Folli cular phase 12.5 - 166.0 Ovula tion phase 85.8 - 498.0 Lutea l phase 43.8 - 211.0 Postm enopa usal <6.0 - 54.7 Pregn delilah 1st trime ster 215.0 - >4300 .0 Amor ECLIA metho dolog y Not Available [facility] ([facility]) [address] [facility], [place], [address], 09/09/2023 10:06:38 09/08/19 24 09/09/2023 FSH FSH 41.7 mIU/m L Adult Femal e Range Folli cular phase 3.5 - 12.5 Ovula tion phase 4.7 - 21.5 Lutea l phase 1.7 - 7.7 Postm enopa usal 25.8 - 134.8 Not Available [facility] ([facility]) [address] [facility], [place], [address], 09/09/2023 10:06:40 10/14/19 24 10/15/2023 CANCE R [...] of jennifer neumann se. Not Available [facility] ([facility]) [address] [facility], [place], [address], 10/15/2023 08:09:05 10/14/19 24 10/15/2023 ESTRA DIOL estradiol 60.1 pg/mL Adult Femal e Range Folli cular phase 12.5 - 166.0 Ovula tion phase 85.8 - 498.0 Lutea l phase 43.8 - 211.0 Postm enopa usal <6.0 - 54.7 Pregn delilah 1st trime ster 215.0 - >4300 .0 Amor ECLIA metho dolog y Not Available [facility] ([facility]) [address] [facility], [place], [address], 10/15/2023 08:09:06 10/14/19 24 10/15/2023 ANTI- MULLE [...] Sarah napol is, [place]. Not Available [facility] ([facility]) [address] [facility], [place], [address], 10/15/2023 08:09:07 10/14/19 24 10/20/2023 INHIB IN [...] or kits canno t be used inter [facility] . Not Available [facility] ([facility]) [address] [facility], [place], [address], 10/22/2023 16:06:44 10/14/19 24 10/22/2023 INHIB IN [...] or kits canno t be used inter [facility] . Not Available [facility] ([facility]) [address] [facility], [place], [address], 10/22/2023 16:06:44 10/20/19 24 10/20/2023 [facility] [...] d out by: Vinnie Holland M.D. / [facility] Clini tha Histo ry: 53-ye ar-ol d [...] [address] [place] (CLIA #[id number]). Its perfo rmanc e joshua cteri stics deter mined by [facility]. Bladimir Holder M.D. Medic al Direc tor of Surgi tha Patho Robson orr M.D. Medic al Direc tor Cytop athol ogy Phone #: [phone], On-Ca ll Patho logis t: [id number] Not Available [facility] [address] [place], [address], 10/26/2023 14:23:54 10/20/19 24 10/20/2023 pregn delilah test, urine HCG negati ve Not Available In-Office Order Internal Use Only DO Not Attach Compendium DO Not Attach Compendium, Do Not Delete/merge, [id number] 10/20/2023 09:56:02 10/06/19 24 10/05/2023 US, pelvi s, trans abdom inal + trans vagin al No observ ation record ed. [email or web address] Not Available 2023 08:52:43 10/30/19 24 10/29/2023 MRI, pelvi s, w/ contr ast No observ ation record ed. [facility] [address] [facility], [place], [address], 11/04/2023 10:15:35 Result Notes None recorded. Problems Name Problem SNOMED Code Status Onset Date Resolution Date Notes Provider Name and Address Organization Details Recorded Time Mass of right ovary 2692141508814 9102 Active 2023 Roslyn Brandon MD [address], [place], [address], [place] [facility], 4 11:14:14 Dyspareunia 17535604 Active 2023 Roslyn Brandon MD [address], [place], [address], [place] [facility], 4 11:14:26 Backache 654886245 Active 2023 Roslyn Brandon MD [address], [place], [address], [place] [facility], 4 11:14:33 Genuine stress incontinenc e 16927963 Active 2023 Roslyn Brandon MD [address], [place], [address], [place] [facility], 4 11:14:41 Problem Notes None recorded. Procedures Surgical History Date Name Laterality Status Provider Name and Address Organization Details Recorded Time 03/24/20 24 laparoscopic hysterectomy completed Roslyn Brandon MD [address], [place], [address], [place] [facility], 06/22/2024 08:18:33 10/20/19 24 Endometrial Biopsy completed Roslyn Brandon MD [address], [place], [address], [place] [facility], 10/20/2023 09:55:35 Removal of thyroid completed ca may [place] [facility], 09/07/2023 11:18:19 cone biopsy completed Roslyn Brandon MD [address], [place], [address], [place] [facility], 09/07/2023 13:33:08 Imaging Results Imaging Date Name Status LastModified by Organization Details LastModified Time 10/05/2023 US, pelvis, transabdominal + transvaginal completed Information not available 10/07/2023 08:52:43 10/29/2023 MRI, pelvis, w/ contrast completed [facility] [address] [place], [address], 11/04/2023 10:15:35 Procedure Notes None recorded. Medical [...] Updated DateTime 4 160.02 cm 29.4 kg/m2 08174.0 5 g 98 [degF] 88 /min 160 mm[Hg] 74 mm[Hg] ca Pandey in [facility], 4 11:09:21 Date Recorded Body height Provider Name an d Address Organization Details Last Updated DateTime 09/15/2023 160.02 cm Flor arizmendi in [facility], 09/15/2023 09:49:48 Date Recorded Body height Body mass index (BMI) Body weight Body temperature Heart rate Systolic blood pressure Diastolic blood pressure Provider Name and Address Organization Details Last Updated DateTime 4 160.02 cm 29.3 kg/m2 27428.4 6 g 97.1 [degF] 95 /min 170 mm[Hg] 77 mm[Hg] Flor Pandey in [facility], 4 08:00:59 Date Recorded Body height Body mass index (BMI) Body weight Heart rate Body temperature Systolic blood pressure Diastolic blood pressure Provider Name and Address Organization Details Last Updated DateTime 4 160.02 cm 29.2 kg/m2 68573.3 g 84 /min 97.2 [degF] 147 mm[Hg] 71 mm[Hg] Flor Pandey in [facility], 4 09:06:06 Date Recorded Body height Body mass index (BMI) Body weight Heart rate Systolic blood pressure Diastolic blood pressure Provider Name and Address Organization Details Last Updated DateTime 4 160.02 cm 29.1 kg/m2 96533.1 5 g 79 /min 151 mm[Hg] 71 mm[Hg] ca Pandey in [facility], 4 09:29:36 Social History Question Answer Notes LastModified by Organizat ion Details LastModified Time Tobacco Smoking Status Former Smoker ca huerta [place] [facility], 09/07/2023 11:16:21 What Is Your Level Of [...] Or The Highest Degree You Have Received? [id number] Information not available 09/07/2023 Who Is Your Employer? [employer] Information not available 09/07/2023 What Is [...] Anxious, Or Unable To Sleep At Night)? [id number] Information not available 09/07/2023 Do You Use [...] SNOMED-CT Code Diagnosis ICD10 Code Diagnosis Note [id number] Roslyn MD ROSLYN Brandon MD [address] [place] [address],[place] [address] 09/07/2023 11:02:41 09/07/2023 14:20:33 Specialized medical examination 47612435 Z01.419 Screening for malignant neoplasm of rectum 070444839 Z12.12 Screening mammography 24 105950 Z12.31 Postmenopa usal bleeding 08056809 N95.0 [id number] MD ROSLYN Mitchell MD [address] [place] [address], [place] [address] 09/15/2023 09:36:13 09/15/2023 15:31:58 [id number] MD ROSLYN Mitchell MD [address] [place] [address], [place] [address] 10/13/2023 07:57:51 10/13/2023 10:20:35 Mass of right ovary 9543085983 4189452 R19.09 Postmenopa usal bleeding 90169801 N95.0 Endometrium thickened 44 3389158 R93.89 [id number] MD ROSLYN Mitchell MD [address] [place] [address], [place] [address] 10/20/2023 08:58:42 10/20/2023 12:04:56 Postmenopausal bleeding 28382127 N95.0 [id number] MD ROSLYN Mitchell MD [address] [place] [address], [place] [address] 11/04/2023 09:24:21 11/04/2023 11:55:47 Mass of right ovary 1714174879 4852485 R19.09 Dyspareunia 89181492 N94 .[address] ress incontinence 46886837 N39.3 Backache 360231253 M54.9 Health Concerns Section Related Observation LastModified by Organization Detai ls LastModified Time None Recorded Concern Status LastModified by Organization Details LastModified Time None Recorded Advance Directives Directive None Recorded Payers Encounter Date Sequence Insurance Name Policy Number Policy Carrera Covered Member ID Carrera Member ID Guarantor Name 09/07/2023 1 [facility] Aide Luna [id number] Aide Luna 09/15/2023 1 [facility] Aide Luna [id number] Aide Luna 10/13/2023 1 [facility] Aide Luna [id number] Aide Luna 10/20/2023 1 [facility]) Aide Luna [id number] Aide Luna 11/04/2023 1 [facility] Aide Luna [id number] Aide Luna Notes Date Note Type Note Provider Name and Address Organization Details Recorded Time 09/07/2023 text/html She is here as a new patient for routine annual. 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 She had her last menses more than 2 years ago, however last week she began moderately red vaginal bleeding that lasted 7 days, now resolved. 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 with Dr. Pham. Roslyn Brandon MD [address] [place] [address],[address], [place], [address], [place] [facility], 09/07/2023 13:53:23 10/13/2023 text/html She is [...] routine annual. 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 Roslyn Brandon MD [address] [facility],[address], [facility] [address], [place] [facility], [...] routine annual. 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 Roslyn Brandon MD [address], [place], [address], [facility] - [facility], 10/20/2023 09:56:29 11/04/2023 text/html She is here [...] routine annual. 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 Roslyn Brandon MD [address], [place], [address], [place] [facility], 11/04/2023 11:19:23 OBGyn Episode No OBEpisode recorded.
--- OUTSIDE RECORDS SUMMARY | 2024-06-27 09:36 | XMS_ITS | Data Portability ---
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 Name Role Phone MAIKOL VILLEGAS Apartment Rental Agent JOHN ZHANG Primary Care Provider Assessment Encounter Date Assessment Date Assessment LastModified [...] Lab TSH, serum or plasma 2020 021 [facility], [address] [place] [address], [address], 07/12/2021 21:25:44 T4, free, serum 2020 021 [facility], [address] [place] [address], [address], 07/12/2021 21:25:43 T4, free, serum 2021 022 [facility], [address] [place] [address], [address], 07/15/2021 15:24:25 TSH, serum or plasma 2021 022 [facility], [address] [place] [address], [address], 07/15/2021 15:24:36 TSH, serum or plasma 2022 023 [email or web address], [address] [place], [address], 01/05/2024 11:23:18 T4, free, serum 2022 023 [email or web address], [address] [place], [address], 01/05/2024 11:23:02 thyroglo bulin Ab, serum 2022 023 [facility], [address] [place], [address], 12/02/2022 11:07:05 TSH, serum or plasma 2023 024 [facility]AN [facility], [address] [facility], [address] [place] [address], [place], [address], 09/11/2023 17:36:06 T4, free, serum 2023 024 [facility]AN [facility], [address] [facility], [address] [place] [address], [address], 09/11/2023 17:36:07 thyroglo bulin Ab, serum 2023 024 LAAN [facility], [address], [address], [place], [address], 09/11/2023 17:36:08 TSH, serum or plasma 2023 024 INTERFACE [facility], [address] [place] [address], [address], [place], [address], 09/11/2023 17:36:06 T4, free, serum 2023 024 INTERFACE [facility], [address] [place] [address], [address], [place], [address], 09/11/2023 17:36:07 thyroglo bulin Ab, serum 2023 024 INTERFACE [facility], [address] [place] [address], [facility] [address], [place], [address], 09/11/2023 17:36:08 Referral None recorded . Procedures None recorded . Surgeries None recorded . Imaging None recorded . Medication Orders Levoxyl 175 mcg tablet 2017 018 [id number], [address] [place] [address], [id number], 03/25/2018 09:15:51 Levoxyl 175 mcg tablet 2019 020 [id number], [address], [place], [id number], 12/16/2022 08:59:02 Levoxyl 175 mcg tablet 2020 021 [place] [id number], [address], [place], [id number], 03/13/2021 15:38:57 Levoxyl 175 mcg tablet 2022 023 [place] [address] [id number], [address], [place], [id number], 12/16/2022 08:59:02 Patient TargetsNo targets recorded. Patient Instructions Encounter Date Encounter Id Patient Instructions Last Modified By Organization Details Last Modified Time 03/25/2018 [id number] deciding about using medicines to quit smoking [...] My Health To Do List {{go to [employer] or call s ign up for waqas text 2 quit or other stop smoking waqas contact [employer]}} {{go to [employer] or call s ign up for waqas text 2 quit or other stop smoking waqas contact [employer]gov}} {{go to [employer] or call s ign up for waqas text 2 quit or other stop smoking waqas contact [employer]Grandis}} Counseling done {{Patient not ready to quit [...] My Health To Do List {{go to [employer] or call * sign up for waqas text 2 quit or other stop smoking waqas contact [employer]Grandis}} {{go to [employer] or call s ign up for waqas text 2 quit or other stop smoking waqas contact [employer]Grandis}} {{go to [employer] or call s ign up for waqas text 2 quit or other stop smoking waqas contact [employer]Grandis}} [email or web address] Not available 03/25/2018 08:57:51 12/28/2019 [id number] deciding about using medicines to quit smoking [...] My Health To Do List {{go to [employer] or call * sign up for waqas text 2 quit or other stop smoking waqas contact [employer]Grandis}} {{go to [employer] or call s ign up for waqas text 2 quit or other stop smoking waqas contact [employer].gov*}} {{go to [employer] or call s ign up for waqas text 2 quit or other stop smoking waqas contact [employer]gov}} Counseling done {{Patient not ready to quit [...] minutes. [email or web address] Not available 12/28/2019 10:29:41 03/13/2021 [id number] deciding about using medicines to quit smoking [...] My Health To Do List {{go to [employer] or call * sign up for waqas text 2 quit or other stop smoking waqas contact [employer]}} {{go to [employer] or call s ign up for waqas text 2 quit or other stop smoking waqas contact smokeApp47.gov*}} {{go to [employer] or call s ign up for waqas text 2 quit or other stop smoking waqas contact [employer]gov}} Counseling done {{Patient not ready to quit [...] 20 minutes. Not available 03/13/2021 13:45:53 08/20/2022 [id number] - Get labs done every 3 months [...] My Health To Do List {{go to [employer] or call * sign up for waqas text 2 quit or other stop smoking waaqs contact smokeApp47.gov}} {{go to [employer] or call s ign up for waqas text 2 quit or other stop smoking waqas contact [employer].gov*}} {{go to [employer] or call s ign up for waqas text 2 quit or other stop smoking waqas contact smokeApp47.gov}} Counseling done {{Patient not ready to quit [...] minutes. [email or web address] Not available 08/20/2022 15:33:20 08/19/2023 [id number] - Get labs done every 3 months [...] Available [facility] [address] [place], [address], 05/19/2019 13:52:10 05/19/20 19 05/19/2019 TSH, serum or plasm a TSH 1.37 mIU/m L (0.40- 4.00) Not Available [facility] [address] [place], [address], 05/19/2019 13:52:12 10/07/19 20 10/07/2019 T4, free, serum free T4 0.68 NG/dL (0.70- 1.80) low Not Available [facility] [address] [place], [address], 10/07/2019 16:02:51 05/15/20 20 10/07/2019 TSH, serum or plasm a TSH 70.54 uIU/m L (0.4-4 .00) high Not Available [facility] [address] [place], [address], 10/07/2019 16:02:52 12/09/19 20 12/09/2019 T4, free, serum free T4 1.43 NG/dL (0.70- 1.80) Not Available [facility] [address] [place], [address], 12/09/2019 11:58:09 12/09/1912/09/2019 TSH, serum or plasm a TSH 11.81 uIU/m L (0.4-4 .00) high Not Available [facility] [address] [place], [address], 12/09/2019 11:58:11 12/09/19 20 12/12/2019 thyro globu diogo Ab, serum thyroglobuli n antibody, serum <1.0 Refer ence range : 0.0 to 0.9 Unit: IU/mL (NOTE ) Thyro globu diogo Antib imtiaz measu red by Beckm an Coult er Metho dolog y TEST PERFO RMED BY [facility], [place] [place], [facility] Y Not Available [facility] [address] [place], [address], 12/12/2019 12:30:00 12/09/1912/12/2019 thyro globu diogo refle [...] PERFO RMED BY [facility] [place], [place], [facility] Not Available [facility] [address] [place], [address], 12/12/2019 12:30:30 11/16/19 21 11/15/2020 T4, free, serum free T4 1.58 NG/dL (0.70- 1.80) Not Available [facility] [address] [place], [address], 11/15/2020 21:10:39 11/16/19 21 11/15/2020 TSH, serum or plasm a TSH 1.34 uIU/m L (0.4-4 .00) Not Available [facility] [address], [place], [address], 11/15/2020 21:10:42 11/16/19 21 11/16/2020 THYRO GLOBU DIOGO,T UMOR MRKR W/RFL X thyroglobuli n antibody, serum <1.0 Refer ence range : 0.0 to 0.9 Unit: IU/mL (NOTE ) Thyro globu diogo Antib imtiaz measu red by Cooperm an Coult er Metho dolog y Test perfo [facility]med by [facility], [address], [place] [address] Not Available [facility] [address], [place], [address], 11/16/2020 12:06:51 11/16/19 21 11/16/2020 THYRO GLOBU [...] ometr ic Assay Test perfo rmed by [facility], [address], [place] [address] Not Available [facility] [address] [place], [address], 11/16/2020 12:07:10 07/12/19 22 07/12/2021 FREE T4 free T4 1.66 NG/dL (0.70- 1.80) Not Available [facility] [address] [place], [address], 07/12/2021 21:25:43 07/12/19 22 07/12/2021 TSH TSH 10.50 uIU/m L (0.4-4 .2) high Not Available [facility] [address] [place], [address], 07/12/2021 21:25:44 03/03/20 22 03/03/2022 FREE T4 free T4 1.99 NG/dL (0.70- 1.80) high Not Available [facility] [address] [place], [address], 03/03/2022 21:21:05 03/03/20 22 03/03/2022 TSH TSH 0.21 uIU/m L (0.4-4 .2) low Not Available [facility] [address] [place], [address], 03/03/2022 21:21:07 03/03/20 22 03/05/2022 THYRO GLOBU DIOGO,T UMOR MRKR W/RFL X thyroglobuli n antibody, serum <1.0 Refer ence range : 0.0 to 0.9 Unit: IU/mL (NOTE ) Thyro globu diogo Antib imtiaz measu red by Beckm an Coult er Metho dolog y Test perfo rmed by [facility], [address], [place] [address] Not Available [facility] [address], [place], [address], 03/05/2022 12:06:55 03/03/20 22 03/05/2022 THYRO GLOBU [...] [facility], [address], [place] [address] Not Available [facility] [address], [place], [address], 03/05/2022 12:07:14 08/16/19 23 08/15/2022 FREE T4 free T4 1.79 NG/dL (0.70- 1.80) Not Available [facility] [address], [place], [address], 08/15/2022 20:02:51 08/16/19 23 08/15/2022 TSH TSH 2.43 uIU/m L (0.4-4 .2) Not Available [facility] [address], [place], [address], 08/15/2022 20:02:53 12/02/19 23 12/01/2022 FREE T4 free T4 1.07 NG/dL (0.70- 1.80) Not Available [facility] [address] [place], [address], 12/01/2022 20:54:11 12/02/19 23 12/01/2022 TSH TSH 8.84 uIU/m L (0.4-4 .2) high Not Available [facility] [address] [place], [address], 12/01/2022 20:54:13 12/02/19 23 12/02/2022 THYRO GLOBU DIOGO,T UMOR MRKR W/RFL X thyroglobuli n antibody, serum <1.0 Refer ence range : 0.0 to 0.9 Unit: IU/mL (NOTE ) Thyro globu diogo Antib imtiaz measu red by Beckm an Coult er Metho dolog y Test perfo rmed by [facility], [address], [place] [address] Not Available [facility] [address], [place], [address], 12/02/2022 11:07:05 12/02/19 23 12/02/2022 THYRO GLOBU [...] [facility], [address], [place] [address] Not Available [facility] [address] [place], [address], 12/02/2022 11:07:26 05/13/20 23 05/13/2023 FREE T4 free T4 1.51 NG/dL (0.70- 1.80) Not Available [facility] [address] [place], [address], 05/13/2023 20:41:56 05/13/20 23 05/13/2023 TSH TSH 1.40 uIU/m L (0.4-4 .2) Not Available [facility] [address], [place], [address], 05/13/2023 20:41:58 05/13/20 23 05/15/2023 THYRO GLOBU DIOGO,T UMOR MRKR W/RFL X thyroglobuli n antibody, serum <1.0 Refer ence range : 0.0 to 0.9 Unit: IU/mL (NOTE ) Thyro globu diogo Antib imtiaz measu red by Beckm an Coult er Metho dolog y Test perfo rmed by [facility], [address], [place] [address] Not Available [facility] [address], [place], [address], 05/15/2023 11:06:43 05/13/20 23 05/15/2023 THYRO GLOBU [...] rp, [address], [place] [address] Not Available [facility] [address], [place], [address], 05/15/2023 11:07:02 09/08/19 24 09/11/2023 THYRO ID STIMU LATIN G HORMO NE TSH-icma 0.50 uu/mL Refer ence Range : Non-P regna nt Adult 0.450 -4.50 0 Pregn delilah First Trime ster 0.100 -4.00 0 Secon d Trime ster 0.200 -4.00 0 Third Trime ster 0.300 -4.50 0 Not Available [facility] [address] [place], [address], 09/11/2023 17:36:06 09/08/19 24 09/11/2023 FREE THYRO XINE free thyroxine 1.71 NG/dL Refer ence Range : >=20y : 0.82 - 1.77 Not Available [facility] [address] [place], [address], 09/11/2023 17:36:07 09/08/19 24 09/09/2023 TGAB+ THYRO G AILYN REFLE X IF NEG thyroglobuli n antibody <1.0 IU/mL 0.0-0. 9 Thyro globu diogo Antib imtiaz measu red by Elana [place] [...] to 4 IU/mL . Not Available [facility] ([facility]) [address] [facility], [place], [address], 09/11/2023 17:36:08 09/08/19 24 09/09/2023 TGAB+ THYRO [...] Immun ometr ic Assay Not Available [facility] ([facility]) [address] [facility], [place], [address], 09/11/2023 17:36:08 Result Notes None recorded. Problems Name Problem SNOMED Code Status Onset Date Resolution Date Notes Provider Name and Address Organization Details Recorded Time Postoperative hypothyroidism 58585572 [place], [address], [facility] 5 17:09:34 Tobacco user 113266213 Active 2007 [place], [address], [facility] 4 12:09:02 Primary malignant neoplasm of thyroid gland 19490082 Active 2004 [place], [address], [facility] 5 17:09:34 Hypothyroidism 94082524 Active 2004 [place], [address], [facility] 5 17:05:00 Problem Notes None recorded. Procedures Surgical History Date Name Laterality Status Provider Name and Address Organization Details Recorded Time 3 Smoking cessation counseling completed Griselda Giordano LPN [facility] 08/19/2022 16:54:04 1 Smoking cessation counseling completed Marycarmen Godinez [facility] 03/13/2021 13:45:51 1 Smoking cessation counseling cancelled Marycarmen Godinez [facility] 07/25/2020 16:22:29 0 Smoking cessation counseling completed Maikol Villegas MD [address] [place] [address], [phone], [facility] 12/28/2019 10:22:50 8 Smoking cessation counseling completed Iwona [facility] 03/25/2018 08:39:04 8 Carbon Monoxide Testing completed Iwona [facility] 03/25/2018 09:37:52 7 Smoking cessation counseling completed Maikol Villegas MD [address] [place] [address], [phone], [facility] 02/03/2017 08:53:27 6 Smoking cessation counseling completed Marcie Condon [facility] 12/05/2015 15:36:55 Imaging Results None recorded. Procedure [...] Not Available Vitals Date Recorded Body weight Body mass index (BMI) Body height Heart rate Systolic blood pressure Diastolic blood pressure Provider Name and Address Organization Details Last Updated DateTime 8 54794.6 g 26 kg/m2 162.56 cm 77 /min 126 mm[Hg] 69 mm[Hg] Iwona Caro [facility] 8 08:45:16 Date Recorded Body weight Body mass index (BMI) Body height Heart rate Systolic blood pressure Diastolic blood pressure Provider Name and Address Organization Details Last Updated DateTime 3 23710.6 5 g 27.4 kg/m2 163.2 cm 94 /min 118 mm[Hg] 62 mm[Hg] Griselda Giordano LPN [facility] 3 14:49:38 Date Recorded Body height Body mass index (BMI) Body weight Heart rate Systolic blood pressure Diastolic blood pressure Provider Name and Address Organization Details Last Updated DateTime 4 163.2 cm 29.3 kg/m2 08411.1 7 g 82 /min 132 mm[Hg] 72 mm[Hg] Na Loaiza RESIDENTIAL FIELD MANAGER [facility] 4 15:40:00 Social History Question Answer Notes LastModified by Organizat ion Details LastModified Time Tobacco Smoking Status Current Every Day Smoker a pack a day Carline Camarillo PA-C [address] [place] [address], [place], [address], [facility] 07/18/2011 12:18:08 What Is Your Level Of Alcohol Consumption? Occasional Information not available 08/20/2022 Which Illicit Or Recreational Drugs Have You Used? None Denies Information not available 12/05/2015 How Many Days In The Past Year Have You Had A Heavy Drinking Consumption (4+ Female, 5+ Male)? 0 Information not available 12/05/2015 Marital Status Single Engaged garry Kruseati on not available 07/18/2011 What Was The [...] hypertension [email or web address] n Not available 11/01/2014 16:53:10 Notes:pat GM has thyroid. si ster-had biopsy of thyroid, waiting for restuls (06/2011) brother-healthy Dad- 61. HTN. Mom- 60. no serious conditions. Mat GM had throat CA. 11/05- oldest is 21 (still in [employer]- wants to go back to school). Youngest 17 (4 taller than brother). Other finished first year [employer] 11/06- oldest is 24 (girl)- living in [facility] (with boyfriend). 2nd (boy) 20 at [employer]. James going to [employer]. Youngest (boy)is 16. 02/08- everyone is OK. 04/11- All kids out Oldest in [facility]. Middle in [place]. Youngest [employer] (11/08). Youngest at [employer]. 12/2019 - Sister with breast cancer, surgery in May 2019. Kids OK- 25 y.o. 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 Youngest- he's at [employer] [facility])- will be remote. 2020: Kids OK. 2022: No changes. Youngest in [place] (phys scie and movement). Medical History Condition Response Thyroid Disease Y Gynecological HistoryNo gynecological history recorded. Obstetrics History GPAL:G 0 P 0 0 0 0 Past Encounters Encounter ID Performer Location Encounter Start Date Encounter Closed Date Diagnosis/Indication Diagnosis SNOMED-CT Code Diagnosis ICD10 Code Diagnosis Note [id number] [facility]y, [facility] [place] [address] 06/12/2004 13:58:19 06/12/2004 17:05:16 [id number] Endocrino logy, [facility] [place] [address] 12/05/2004 11:31:23 12/05/2004 17:06:52 [id number] Endocrino logy, [facility] [place] [address] 12/12/2005 11:59:07 06/14/2008 02:02:29 [id number] Endocrino logy, [facility] [place] [address] 08/12/2006 12:19:43 08/12/2006 13:57:53 [id number] LAB - [facility] [place] [address] 08/12/2006 12:57:18 08/12/2006 12:57:27 [id number] LAB - [facility] [place] [address] 01/19/2008 12:06:21 01/19/2008 12:06:33 [id number] Endocrino logy, [facility] [place] [address] 01/19/2008 10:43:09 06/14/2008 02:02:29 [id number] Endocrino logy, [facility] [place] [address] 09/20/2008 14:53:41 09/21/2008 10:05:42 [id number] LAB - [facility] [place] [address] 09/20/2008 15:55:08 09/20/2008 15:55:16 [id number] Endocrino logy, [facility] [place] [address] 03/27/2010 15:56:20 04/04/2010 16:09:20 [id number] Marcie Condon LPN [facility], [facility] [place] [address] 08/21/2010 17:45:49 08/22/2010 09:22:08 [id number] Marcie Condon LPN [facility], [address] [address] 07/18/2011 10:51:50 07/18/2011 12:10:05 [id number] Carline Camarillo PA-C [facility]ocr[facility], [address] [address] 09/10/2012 15:01:21 09/10/2012 15:58:54 [id number] Priti Sarabjit [facility], [address] [address] 10/26/2013 11:17:33 10/26/2013 11:58:01 Primary malignant neoplasm of thyroid gland 49728396 Thyroglobu diogo low with TSH suppressed . [...] between 0.1 and 0.05. Postoperat bennett hypothyroidism 61808313 Was on 125 x 2 pills for TTD of 250 but had high fT4 and now back to 175 mcg. Wants to use brand name for better consistenc y and also finds that her periods are much heavier on generic T4. Tobacco user 976007553 e ncourage smoking cessation. [id number] [facility], [address] [address] 11/01/2014 15:23:06 11/01/2014 17:02:14 Primary malignant neoplasm of thyroid gland 95163065 Right multifocal papillary in 2001 - 0.6cm largest with 5 other foci. otherwise clear. T1, Nx KOCH in 03/2002 and additional dose in 2003. TBS scan in 01/27 was negative and thyroglobu diogo level was <1 (at time TSH was 163). Thyroglobu diogo has been unmeasurab le. Postoperat bennett hypothyroidism 60226455 TSH up to 13 on 175 but [...] and much better (less heavy) on Levoxyl. [id number] Maikol Villegas MD [facility]ocr[facility], [address] [address] 12/05/2015 15:12:46 12/05/2015 16:56:52 Cigarette smoker 83448780 F17.210 Tried vapor but it broke. Discussed issue of smoking and ramificati ons.She would like to go to hypnotist. Postoperat bennett hypothyroidism 67338521 E89.0 TSH up to 9 with normal [...] Levoxyl. History of malignant neoplasm of thyroid 325096758 Z85.850 Right multifocal papillary in 2001 - 0.6cm largest with 5 other foci. otherwise clear. T1, Nx KOCH in 03/2002 and additional dose in 2003. TBS scan in 01/27 was negative and thyroglobu diogo level was <1 (at time TSH was 163). Thyroglobu diogo has been unmeasurab le. [id number] Maikol Villegas MD [facility], [address] [address] 02/03/2017 08:17:39 02/03/2017 09:12:26 Tobacco user 959225424 Z72.0 encourage smoking cessation. Postoperat bennett hypothyroidism 60198410 E89.0 TSH now down to 1.1 (02/08)- had been up to 12 when ran out.Contin ue on 175 and follow labs every 3 months. Takes T4 same time of day (AM).Alway s takes with cup of coffee (with milk) so no change in pattern. Labs every 3 months. Primary ma lignant neoplasm of thyroid gland 75943746 C73 Thyroglobu diogo has been unmeasurab le. Not included in 02/08 labs. Ask to add on. Cigarette smoker 7673421 7 F17.210 Using ecigs. Encouraged her efforts. [id number] Iwona Caro [facility], [address] [address] 03/25/2018 08:35:54 03/25/2018 09:40:23 Primary malignant neoplasm of thyroid gland 60458116 C73 Right multifocal papillary in 2001 - [...] levels ordered in summer 2018. Tobacco user 542252417 Z 72.0 encourage smoking cessation. Postoperat bennett hypothyroidism 23652464 E89.0 On 175. TSH is 1.82 in [...] dose (175) and monitor labs. Cigarette smoker 9316037 7 F17.210 Stopped e-cigs. Encouraged her to return to that. [id number] Maikol Villegas MD [facility], [address] [address] 12/28/2019 09:41:03 12/28/2019 21:24:39 Postoperative hypothyroidism 66229960 E89.0 On 175. Had been off for [...] keeps smoking same amount (1ppd). Cigarette smoker 6404197 7 F17.210 Think about using nicorette mints. Tobacco user 426626086 Z 72.0 encourage smoking cessation. Primary ma lignant neoplasm of thyroid gland 39228517 C73 Right multifocal papillary in 2001 - [...] need Tg levels ordered in summer 2020. [id number] Maikol Villegas MD [facility], [address] [address] 03/13/2021 14:41:59 03/14/2021 06:42:24 Postoperative hypothyroidism 59216445 E89.0 On 175. Fluctuatio ns in labs- [...] T4 at HS. Monitor labs. Tobacco user 880803338 Z 72.0 encourage smoking cessation. Primary ma lignant neoplasm of thyroid gland 01409711 C73 Right multifocal papillary in 2001 - [...] levels ordered in summer 2020. Cigarette smoker 2367857 7 F17.210 Think about using nicorette mints. [id number] Maikol Villegas MD [facility], [address] [address] 08/20/2022 14:36:43 08/21/2022 14:36:22 Postoperative hypothyroidism 80468946 E89.0 On 175.Recent fluctuatio ns in labs- [...] Primary ma lignant neoplasm of thyroid gland 35692190 C73 Not controlled . Right multifocal papillary [...] for October 2022 with TFTs. Tobacco user 265171889 Z 72.0 encourage smoking cessation. Cigarette smoker 3504432 7 F17.210 Think about using nicorette mints. [id number] Maikol Villegas MD [facility], [address] [address] 08/19/2023 15:34:08 08/19/2023 17:24:10 Primary malignant neoplasm of thyroid gland 72834980 C73 Controlled but presence adds complexity to [...] closer to LLN (0.5-1.0) Postoperat bennett hypothyroidism 72187486 E89.0 On 175.Recent fluctuatio ns in labs- [...] q 3 months. Tg in 11/14. Menopause 331142767 N95. 1 c/o foggy brain and poor energy and weight gain.Encou rage f/u with STRUCTURED CABLING TECHNICIAN or PCP re: HRT. Could be an [...] Member ID Guarantor Name 03/25/2018 1 [place] [facility] Aide Luna [id number] Aide Luna 03/25/2018 1 [facility] [id number] Aide Luna [id number] Aide Luna 12/28/2019 1 [facility]: [facility] ([facility] [place]) [id number] Aide Luna [id number] Aide Luna 03/13/2021 1 [facility]: [facility] ([facility] [place]) [id number] Aide Luna [id number] Aide Luna 08/20/2022 1 [facility]: [facility] ([facility] [place]) [id number] Aide Luna [id number] Aide Luna 08/19/2023 1 [facility] ([facility] [place]) Aide Luna [id number] Aide Luna Notes Date Note Type Note Provider Name and Address Organization Details Recorded Time 03/25/2018 text/html ThyroidReported bypatient.Previous Evaluation:TSH: (1.82 (12/09); was 1.13 (02/08) -was 12 (10/08 when ran out); was 9.18 (12/07)- was 0.03 (11/06)_ was `13 (06/08)-); free T4: (1.61 (12/09);); TPO abs: (<20 in 02/08.); TG abs: ((-)); thyroglobulin: (<1 in 2017); total body scan thyrogen: 2004 (Multifocal papillary [...] this month Neurological:no anxiety; no insomnia;tremor(chron ic)a/vmg-smoking [id number] bypatient.ImportanceO n a scale of 1-10 with [...] bruising.No hair or nail changes. Iwona huerta, [facility] 03/25/2018 09:40:09 12/28/2019 text/html ThyroidReported bypatient.Previous Evaluation:TSH: [...] insomnia;tremor(chron ic mild.)Notes:No hair or nail changes.a/vmg-smoking [id number] bypatient.ImportanceO n a scale of 1-10 with [...] was notified that the provider location is [facility] [place] Patient location: home During the visit the [...] or itching or bruising. Maikol Villegas MD [address] [place] [address], [phone], [facility] 12/28/2019 10:32:30 03/13/2021 text/html ThyroidReported bypatient.Previous Evaluation:TSH: [...] 5AM.);tremor(chronic mild.)Notes:No hair or nail changes. a/vmg-smoking [id number] bypatient.ImportanceO n a scale of 1-10 with [...] or itching or bruising. Maikol Villegas MD [address] [place] [address], [phone], [facility] 03/13/2021 15:38:55 08/20/2022 text/html ThyroidReported bypatient.Previous Evaluation:TSH: [...] sleep easily.)Notes:No hair or nail changes. a/vmg-smoking [id number] bypatient.ImportanceO n a scale of 1-10 with [...] Willing to try hypnosis. PCP: Marj Zhang ([place]) Follow-Up: hypothyroidismFollow- Up: primary malignant neoplasm of [...] (1x)No dizziness with standing. Maikol Villegas MD [address] [place] [address], [phone], [facility] 08/20/2022 15:34:15 08/19/2023 text/html ThyroidReported bypatient.Previous Evaluation:TSH: [...] when first wakes up. PCP: Marj Zhang ([place]). but she will be leaving. Follow-Up: hypothyroidismFollow- [...] Walks 4 miles/AM. 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 Not exercising.Vaping, not smoking, since 09/14.Engaged x 18 years- might get after 20 years. FAMILY Hx (updated):12/2019 - Sister with breast cancer, surgery in May 2019.Kids OK- 23 y.o. 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 (phys scie and movement).08/15:Son getting at [facility] [employer]- likes her. 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 [place].Daughter in [facility] (near [place]). [place]. ROS:No fever or chills.No SOB. Some ANTOINE (stairs).No severe h/a.No n/v or abdominal pain.No muscle pains/cramping.No polyuria (some in AM after coffee). Little more lately (08/15) at q 60-90 minutes. BG < 100 in 05/16. No polydipsia. No nocturia (1x)No dizziness with standing. Maikol Villegas MD [address] [place] [address], [phone], [facility] 08/19/2023 16:16:57 OBGyn Episode No OBEpisode recorded.
[2024-06-27 12:08] LABS: Anion Gap 13 (12-20); Blood Urea Nitrogen 22 mg/dL (9-16); Carbon Dioxide 24 mmol/L (22-29); Chloride 107 mmol/L (96-108); Estimated Glomerular Filt Rate > 60; Glucose Random 102 mg/dL (60-115); Sodium 140 mmol/L (135-145)
== END 2024-06-27 09:16 | disposition home or self-care (01) ==
LOC: HO.WFDLDS 09:15
PROVIDERS: Visit Provider Internal Medicine
DX: I42.8 Other cardiomyopathies (principal)
CPT/HCPCS: 36415; 80048

== ENCOUNTER → 2024-07-01 09:04 | Outpatient (BNVA) | payer BC, SELFPAY | PROVIDERS: PCP Internal Medicine; Visit Provider Student in an Organized Health Care Education/Training Program | DX: M25.50 Pain in unspecified joint (principal); M19.049 Primary osteoarthritis, unspecified hand ==

== ENCOUNTER → 2024-07-01 09:04 | Outpatient (AMB) | payer BC, SELFPAY ==
--- NOTE | 2024-07-01 09:08 | A.OFFVIS_ITS ---
Vital Signs 07/01/24 09:11 Height 5 ft 4.57 in Weight 157 lb 6.561 oz BMI 26.5 BP 90/60 Blood Pressure Location Lt brachial Position Sitting Pulse 92 Pulse Source Pulse Oximeter Pulse Oximetry (%) 94 Oxygen Delivery Method Room Air Intake Visit Reasons: Pain in unspecified joint Intake Note: Patient presents for pain in unspecified joint. Allergies No Known Allergies Allergy (Verified 07/01/24 09:11) Medication List - Last Reconciled 07/01/24 by Casie Alan MD diclofenac sodium 1% (Arthritis Pain (diclofenac)) 4 grams topical QID Jardiance (empagliflozin) 10 mg PO DAILY NS levothyroxine (Levoxyl) 175 mcg PO DAILY metoprolol succinate ER 50 mg PO DAILY sacubitril-valsartan 24-26 mg (Entresto) 1 tab PO BID spironolactone 25 mg PO DAILY torsemide 20 mg PO DAILY HPI Comments Details: Patient is a 54-year-old female with hypothyroidism secondary to thyroidectomy and [facility] in 2001 for multifocal papillary carcinoma, hypertension complicated by systolic heart failure presents for follow up of polyarthralgias Interval History: Patient last seen 06/15/2024 with me. At that time she was being evaluated for polyarthralgias in the setting of a positive rheumatoid factor. She did not have any evidence of elevated ESR or CRP at that time. She did have tenderness to palpation of the MCPs and MTPs bilaterally and the concern was could this be in the setting of her supratherapeutic levothyroxine doses or new onset early or mild RA. She was given topical diclofenac to be used 4 times a day And sent to do labs. Today, Patient is currently using the topical diclofenac and she says that it has been helpful slides her symptoms are overall pretty much the same Rheumatologic History: OA vs early RA? Initial history: Patient evaluated 05/2024 for Joint pain for the past 3 years. Involving the hands and feet. Associated with stiffness lasting about 30 mins Pain in hands wakes her up in the middle of the night. Sometimes this is associated with numbness and tingling but not consistently. Also with respect to the feet she feels that when she wakes up in the AM the feet feel sore. Hands are the same intensity of pain throughout the day. Feet are worse at night. No personal history of psoriasis, UC or Crohn's Family History: Sister with MS Current Rheumatology Medication(s): Topical diclofenac 1% gel [facility] Medical History (Updated 06/15/24 @ 13:22 by Casie Alan MD) Osteoarthritis, hand Basal cell carcinoma Right knee pain Iron deficiency anemia Hypothyroid Skin cancer Surgical History H/O: hysterectomy History of thyroidectomy S/P skin biopsy Family History Mother Hypertension Father Hypertension Maternal Grandmother Cancer Paternal Grandfather Cancer Sister Multiple sclerosis Social History Housing: House Alcohol intake: current Alcohol intake frequency: a few times a week Patient Tobacco Use Status: Former Tobacco user Tobacco use type: Cigarette Years Smoked: 30 e-Cigarette/Vaping Use: Currently Using service: No Current occupational status: employed 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 Current occupational exposures/hazards: No Cognitive needs: No Hearing needs: No Vision needs: Yes (reading glasses) Review of Systems Const Details: Review of Systems Constitutional: Denies fever, chills, weight loss ENT: Denies vision changes, eye pain or eye redness, dental caries, dry mouth GI: Denies nausea, vomiting, diarrhea, abdominal pain, change in BM Pulm: Denies SOB, ANTOINE, hemoptysis, wheezing Cards: Denies chest pain, palpitations Skin: Denies Raynaud's, rash, nail changes, photosensitivity, EXECUTIVE SEARCH CONSULTANT: Denies headaches, weakness, paresthesias, recurrent falls MSK: as per HPI All other systems reviewed and are unremarkable except noted above Physical Exam Vital Signs: Last Vital Signs Pulse 92 07/01/24 09:11 BP 90/60 07/01/24 09:11 Pulse Ox 94 07/01/24 09:11 Oxygen Delivery Method Room Air 07/01/24 09:11 BMI result Body Mass Index 26.5 Vital signs reviewed Physical Examination CONSTITUITIONAL Patient alert and cooperative. Well appearing and in no apparent painful distress HEENT Conjunctiva and sclera clear. ?Pupils equal round and reactive to light. ?No lymphadenopathy. ? CHEST/RESPIRATORY SYSTEM Normal respiratory effort and able to speak in complete sentences. ?Clear to auscultation bilaterally. ?No crackles, rales, rhonchi, wheezes heard. CARDIAC SYSTEM Regular rate and rhythm. ?S1 and S2 heard no murmurs. ?Radial pulses intact bilaterally MSK Hands: ?Good qa tech strength bilaterally. No deformities noted. ?Tenderness to palpation of the MCPs and PIPs. No overt swelling noted. Heberden's nodes noted. Wrists: ?Full range of motion at the wrists without pain. ?Mild tenderness to palpation of bilateral wrists. Elbows: Full range of motion without pain. No tenderness, weakness, swelling, increased warmth or erythema. Shoulders: Full range of motion without pain. Tenderness to palpation of the AC joints. Hips: Full range of motion without pain. Hip bursa: No tenderness to palpation Knees: ?Full range of motion. ?No tenderness, swelling, increased warmth or erythema.? Bilateral crepitations felt Ankles: Full range of motion. ?No tenderness, swelling, increased warmth or erythema.? Feet: ?Negative squeeze test. ?No tenderness to palpation or swelling of the MTPs. Tender points:?No tenderness to palpation of the bilateral trapezius, supraspinatus, greater trochanters, anterior costochondral junctions, bilateral gluteal areas, bilateral suboccipital muscle insertions SKIN Skin intact without rashes. Results Reviewed Results Reviewed: Laboratory Tests 02/12/24 06/15/24 06/27/24 07:40 13:27 09:17 WBC 6.9 RBC 4.66 Hgb 13.9 Hct 41.4 Plt Count 281 ESR 13 Sodium 140 Potassium 4.0 Chloride 107 Carbon Dioxide 24 BUN 22 H Creatinine 0.79 Total Bilirubin 0.3 AST 26 ALT 39 H Alkaline Phosphatase 82 C-Reactive Protein 0.24 0.16 Total Protein 7.4 8.3 H PEP Interpretation SEE NOTE 25-OH Vitamin D Total 17 L TSH 0.09 L Rheumatoid Factor 20.8 H Cycl Citrul Peptide IgG <16 Hepatitis A IgM Ab Nonreactive Hep Bs Antigen Negative Hep Bs Antibody REACTIVE Hep B Core Total Ab Nonreactive Hepatitis C Ab (EIA) Nonreactive XR Hnad/Wrist 05/2024 FINDINGS (Left): The bones and soft tissues are normal. No fracture. Alignment is anatomic. Mild loss of PIP and DIP joint spaces seen. No bony erosive changes. There is minimal periarticular spurring DIP joint second digit. The soft tissues are normal. There is a negative ulnar variance. FINDINGS (Right): The bones and soft tissues are normal. No fracture. Alignment is anatomic. Joint spaces are maintained. No erosions or soft tissue calcifications. XR Feet 05/2024 FINDINGS (Left): The bones and soft tissues are normal. No fracture. Alignment is anatomic. Joint spaces are maintained. FINDINGS (Right): There is partial prosthesis along the proximal phalanx head first digit in satisfactory alignment with gross metatarsal head. The joint spaces are preserved. No free acute fracture or lytic process seen. The ankle mortise and subtalar joints are normal. Assessment & Plan Assessment & Plan (1) Polyarthralgia: Code(s): M25.50 - Pain in unspecified joint Category: Medical Plan: #Polyarthralgias Patient is a 54-year-old female with previous history of papillary thyroid cancer status post thyroidectomy and radio ablative therapy on supratherapeutic doses of levothyroxine complicated by systolic heart failure now here with polyarthralgias. Her examination did not show any evidence of overt synovitis however she did tenderness to palpation of the MCPs and MTPs bilaterally. With a positive rheumatoid factor this may be indicative of early or mild rheumatoid arthritis. I discussed potentially starting Plaquenil for this but given her recent diagnosis of systolic heart failure patient would like to hold off on starting any new medications until cleared by her dairy clerk. And I am in agreement with this. We will continue to monitor off medications and continue with the topical diclofenac Plan - Topical diclofenac - RTC 6 months - Labs before visit: CBC, CMP, ESR, CRP (2) Osteoarthritis, hand: Code(s): M19.049 - Primary osteoarthritis, unspecified hand Category: Medical Qualifiers: Osteoarthritis type: primary Laterality: bilateral Qualified Code(s): M19.041 - Primary osteoarthritis, right hand; M19.042 - Primary osteoarthritis, left hand Plan: #Bilateral Hand OA Patient with evidence of bilateral hand OA: Heberden's nodes to the DIPs as well as tenderness to palpation of these joints. She also has a evidence of likely knee osteoarthritis with crepitations noted bilaterally. Recommended topical diclofenac 4 times a day. She also complains of flexor tenosynovitis and I recommended splinting to allow the tendon to heal. Plan - Topical diclofenac up to 4 times a day - Splinting for the flexor tenosynovitis Plan I spent 20 minutes reviewing the record and labs, taking a history, examining the patient, discussing the treatment plan and documenting in the medical record Orders: Orders Complete Blood Count Auto Diff 6 Months M19.041 - Primary osteoarthritis, right hand, M19.042 - Primary osteoarthritis, left hand, M25.50 - Pain in unspecified joint, R76.8 - Other specified abnormal immunological findings in serum Comprehensive Met. Panel 6 Months M19.041 - Primary osteoarthritis, right hand, M19.042 - Primary osteoarthritis, left hand, M25.50 - Pain in unspecified joint, R76.8 - Other specified abnormal immunological findings in serum C Reactive Protein 6 Months M19.041 - Primary osteoarthritis, right hand, M19.042 - Primary osteoarthritis, left hand, M25.50 - Pain in unspecified joint, R76.8 - Other specified abnormal immunological findings in serum Erythrocyte Sedimentation Rate 6 Months M19.041 - Primary osteoarthritis, right hand, M19.042 - Primary osteoarthritis, left hand, M25.50 - Pain in unspecified joint, R76.8 - Other specified abnormal immunological findings in serum Coding Level of Care Code Est Pt Level 3 (00064) Complex EM visit Add On G2211 Diagnoses Polyarthralgia M25.50 Primary osteoarthritis of both hands M19.041; M19.042 Osteoarthritis type: primary Laterality: bilateral
== END | disposition home or self-care (01) ==
PROVIDERS: PCP Internal Medicine; Referring Provider Internal Medicine; Visit Provider Student in an Organized Health Care Education/Training Program
DX: M25.50 Pain in unspecified joint (principal); M19.041 Primary osteoarthritis, right hand; M19.042 Primary osteoarthritis, left hand
CPT/HCPCS: 99213

== ENCOUNTER 2024-12-13 10:41 | Outpatient (REF) | payer BC, SELFPAY ==
--- OUTSIDE RECORDS SUMMARY | 2024-12-13 11:53 | XMS_ITS | Data Portability ---
Author Organization [place] - [facility],, ROSLYN BRANDON MD Address [address] [address] Care Team Providers Care Swine Genetics Researcher Name Role Phone SHAYYA JOHN Primary Care Provider Assessment No assessment recorded. Plan of Treatment Reminders Order Date Submit Date Provider Last Modified By Organization Details Last Modified Time Details Appointments None recorded. Lab biopsy, endometria l 2023 024 [email or web address] [facility] (Centralized Electronic Ordering - All Locations), Patient Can Go To The Location Of Their Choice, [id number] 4 07:34:58 test, urine 2023 024 [email or web address] 1 In-Office Order, Internal Use Only DO Not Attach Compendium DO Not Attach Compendium, Do Not Delete/merge, [id number] 4 09:56:11 ca 125, serum 2023 024 ALAN [facility] (Centralized Electronic Ordering - All Locations), Patient Can Go To The Location Of Their Choice, 4 08:09:06 estradiol, serum 2023 024 ALAN [facility] (Centralized Electronic Ordering - All Locations), Patient Can Go To The Location Of Their Choice, 4 08:09:06 anti-mulle melodie hormone (amh), serum 2023 024 ALAN [facility] (Centralized Electronic Ordering - All Locations), Patient Can Go To The Location Of Their Choice, 4 08:09:07 inhibin A + B panel, serum or plasma 2023 024 ALAN [facility] (Centralized Electronic Ordering - All Locations), Patient Can Go To The Location Of Their Choice, [id number] 4 16:06:44 cytology report, thin prep, smear or scraping, cervical or vaginal 2023 024 ALAN [facility] (Centralized Electronic Ordering - All Locations), Patient Can Go To The Location Of Their Choice, [id number] 4 12:07:00 estradiol, serum 2023 024 ALAN [facility] (Centralized Electronic Ordering - All Locations), Patient Can Go To The Location Of Their Choice, [id number] 4 10:06:38 FSH (follicle- stimulatin g hormone), serum 2023 024 ALAN [facility] (Centralized Electronic Ordering - All Locations), Patient Can Go To The Location Of Their Choice, [id number] 4 10:06:40 hemoglobin , gastrointe stinal, stool 2023 024 [email or web address] 1 In-Office Order, Internal Use Only DO Not Attach Compendium DO Not Attach Compendium, Do Not Delete/merge, [id number] 13:33:18 Referral gynecologi c surgery referral - 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 Imaging MRI, pelvis, w/ contrast - hypoechoic enlargemen t of right ovary, question possible fibroma, also has post menopausal bleeding and thickened endometriu m 2023 024 [email or web address] [facility] ([facility]), [address], [place], [address], 4 07:35:14 MAMMO, screening, digital, bilateral - Breast Aspiration and/or Biopsy if needed 2023 024 [email or web address] [facility], [address], [address], [place], [address], 5 07:19:33 Medication Orders None recorded. Patient TargetsNo targets recorded. Patient Instructions Encounter Date Encounter Id Patient Instructions Last Modified By Organization Details Last Modified Time 09/07/2023 [id number] learning about healthy weight Not available 09/07/2023 13:13:23 vaginal bleeding after menopause: care instructions Not available 09/07/2023 13:13:40 She is here as a new patient for routine annual. She has not had a tire mold engraver exam in many, many years . She [...] the breast. Not available 09/07/2023 13:53:01 10/13/2023 [id number] vaginal bleeding after menopause: care instructions Not [...] routine annual. She has not had a tire mold engraver exam in many, many years . She [...] if so should she see a regular tire mold engraver, or a tire mold engraver onc. Face to face discussion 30 minutes Not available 10/13/2023 08:39:44 10/20/2023 [id number] postmenopausal bleeding information Not available 10/20/2023 09:54:56 endometrial biopsy: about this test Not available 10/20/2023 09:54:57 She is here [...] routine annual. She has not had a tire mold engraver exam in many, many years . She [...] repeat sono in 3 months if stable. Not available 10/20/2023 09:54:55 11/04/2023 [id number] back pain: care instructions laura Not available [...] routine annual. She has not had a tire mold engraver exam in many, many years . She [...] surgeon. 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 REACT EDU CELLU LAR HURTADO ES AND/O R REPAI R ARE PRESE NT. Not Available [address], [address], 09/11/2023 12:06:59 09/07/19 24 09/11/2023 IGP, RFX APTIM A HPV ASCU specimen adequacy: Commen t Satis facto ry for evalu ation . Endoc ervic al and/o r squam ous metap lasti c cells (endo cervi tha compo nent) are prese nt. Not Available [address], [address], 09/11/2023 12:06:59 09/07/19 24 09/11/2023 IGP, RFX APTIM A HPV ASCU clinician provided ICD10: Zaira t Z01.4 19 N95.0 Not Available [address], [address], 09/11/2023 12:06:59 09/07/19 24 09/11/2023 IGP, RFX APTIM A HPV ASCU performed by: Zaira Hooper il, Cytot echno logis t (ASCP ) Not Available [address], [address], 09/11/2023 12:06:59 09/07/19 24 09/11/2023 IGP, RFX APTIM A HPV ASCU electronical ly signed by: Zaira rios MD, Patho logis t Not Available [address], [address], 09/11/2023 12:06:59 09/07/19 24 09/11/2023 IGP, RFX APTIM A HPV ASCU . . Not Available [address], [address], 09/11/2023 12:06:59 09/07/19 24 09/11/2023 IGP, RFX APTIM A HPV ASCU note: Zaira manning The Pap smear is a scree basim test desrishi ulises to aid in the detec tion of calli ligna nt and malig nant condi tions of the uteri ne cervi x. It is not a diagn ostic proce dure and shoul d not be used as the sole means of detec ting cervi tha cance r. Both false -posi tive and false -nega tive repor ts do occur . Not Available [address], [address], 09/11/2023 12:06:59 09/07/19 24 09/11/2023 IGP, RFX APTIM A HPV ASCU test methodology: Zaira manning This liqui d based ThinP rep(R ) pap test was scree ulises with the use of an image guide rupal armijo. Not Available [address], [address], 09/11/2023 12:06:59 09/07/19 24 09/11/2023 IGP, RFX APTIM A HPV ASCU . Commen t The HPV DNA refle x crite tanika were not met with this speci men resul t there fore, no HPV testi ng was perfo rmed. Not Available [id number] [place], [address], 09/11/2023 12:06:59 09/07/19 24 09/07/2023 hemog lobin , gastr ointe mariano l, stool Occult Blood negati ve Not Available In-Office Order Internal Use Only DO Not Attach Compendium DO Not Attach Compendium, Do Not Delete/merge, [id number] 09/07/2023 11:08:14 09/08/19 24 09/09/2023 ESTRA DIOL estradiol 63.1 pg/mL Adult Femal e Range Folli cular phase 12.5 - 166.0 Ovula tion phase 85.8 - 498.0 Lutea l phase 43.8 - 211.0 Postm enopa usal <6.0 - 54.7 Pregn delilah 1st trime ster 215.0 - >4300 .0 Amor ECLIA metho dolog y Not Available [facility] ([facility]) [address] [facility], [place], [address], 09/09/2023 10:06:38 09/08/19 24 09/09/2023 FSH FSH 41.7 mIU/m L Adult Femal e Range Folli cular phase 3.5 - 12.5 Ovula tion phase 4.7 - 21.5 Lutea l phase 1.7 - 7.7 Postm enopa usal 25.8 - 134.8 Not Available [facility] ([facility]) [address] [facility], [place], [address], 09/09/2023 10:06:40 10/14/19 24 10/15/2023 CANCE R ANTIG EN (CA) 125 cancer antigen (Ca) 125 13.1 U/mL 0.0-38 .1 Amor Diagn ostic s Elect amor milum inesc ence Immun oassa y (ECLI A) Value s obtai ulises with diffe rent assay metho ds or kits canno t be used inter [facility] eably . Resul ts canno t be inter prete d as absol [place] evide nce of the prese nce or absen ce of jennifer neumann se. Not Available [facility] ([facility]) [address] [facility], [place], [address], 10/15/2023 08:09:05 10/14/19 24 10/15/2023 ESTRA DIOL estradiol 60.1 pg/mL Adult Femal e Range Folli cular phase 12.5 - 166.0 Ovula tion phase 85.8 - 498.0 Lutea l phase 43.8 - 211.0 Postm enopa usal <6.0 - 54.7 Pregn delilah 1st trime ster 215.0 - >4300 .0 Amor ECLIA metho dolog y Not Available [facility] ([facility]) [address] [facility], [place], [address], 10/15/2023 08:09:06 10/14/19 24 10/15/2023 ANTI- MULLE [...] or kits canno t be used inter [facility] . Age-d epend ent refer ence inter [...] Sarah napol is, [place]. Not Available [facility] ([facility]) [address], [place], [address], 10/15/2023 08:09:07 10/14/19 24 10/20/2023 INHIB IN [...] or kits canno t be used inter [facility] . Not Available [facility] ([facility]) [address], [place], [address], 10/22/2023 16:06:44 10/14/19 24 10/22/2023 INHIB IN A+B inhibin B <7.0 pg/mL Early Folli cular <261. 0 Late Folli cular <286. 0 Perio vulat ory <189. 0 MidLu teal <164. 0 End Lutea l <107. 0 Post Menop ausal < 17.0 Inhib in B perfo rmed by Brandon Sauceda( TM) Enzym e Linke d Immun oassa y metho dolog y. Value s obtai ulises with diffe rent assay metho ds or kits canno t be used inter [facility] . Not Available [facility] ([facility]) [address], [place], [address], 10/22/2023 16:06:44 10/20/19 24 10/20/2023 [facility] SURGI THA PATHO LOGY results Patijulita nt Name: AIDE MILLS Minerva Acces branden #: [id number] [...] d out by: Vinnie Holland M.D. / [facility] Clini tha Histo ry: 53-ye ar-ol d [...] stain ing is perfo rmed at [facility] [place] [facility] , [address], [place] (CLIA #[id number]). Its perfo rmanc e joshua cteri stics deter mined by [facility]. Bladimir Holder M.D. Medic al Direc tor of Surgi tha Robson Burt M.D. Medic al Direc tor Cytop athol ogy Phone #: [phone], On-Ca ll Patho logis t: [id number] Not Available [facility] (Centralized Electronic Ordering - All Locations) Patient Can Go To The Location Of Their Choice, [id number] 10/26/2023 14:23:54 10/20/19 24 10/20/2023 pregn delilah test, urine HCG negati ve Not Available In-Office Order Internal Use Only DO Not Attach Compendium DO Not Attach Compendium, Do Not Delete/merge, [id number] 10/20/2023 09:56:02 10/06/19 24 10/05/2023 US, pelvi s, trans abdom inal + trans vagin al No observ ation record ed. [email or web address] Not Available 2023 08:52:43 10/30/19 24 10/29/2023 MRI, pelvi s, w/ contr ast No observ ation record ed. sharad Lily Mri [address] [place], [address], 11/04/2023 10:15:35 Result Notes None recorded. Problems Name Problem SNOMED Code Status Onset Date Resolution Date Notes Provider Name and Address Organization Details Recorded Time Mass of right ovary 9601816513697 9102 Active 2023 Roslyn Brandon MD [address] [facility],[address], [place], [address], [place] - [facility], 4 11:14:14 Dyspareunia 51147293 Active 2023 Roslyn Brandon MD [address], [place], [address], [place] [facility], 4 11:14:26 Backache 097785989 Active 2023 Roslyn Brandon MD [address] [facility],[address], [place], [address], [place] [facility], 4 11:14:33 Genuine stress incontinenc e 21811603 Active 2023 Roslyn Brandon MD [address] [facility],[address], [place], [address], [place] [facility], 4 11:14:41 Problem Notes None recorded. Procedures Surgical History Date Name Laterality Status Provider Name and Address Organization Details Recorded Time 03/24/20 24 laparoscopic hysterectomy completed Roslyn Brandon MD [address], [place], [address], [place] - [facility], 06/22/2024 08:18:33 10/20/19 24 Endometrial Biopsy completed Roslyn Brandon MD [address], [place], [address], [place] - [facility], 10/20/2023 09:55:35 Removal of thyroid completed ca Pandey in [facility], 09/07/2023 11:18:19 cone biopsy completed Roslyn Brandon MD [address], [place], [address], [place] - [facility], 09/07/2023 13:33:08 Imaging Results None recorded. Procedure Notes None [...] Body weight Body temperature Heart rate Systolic And Diastolic Provider Name and Address Organization Details Last Updated DateTime 4 160.02 cm 29.4 kg/m2 67141.0 5 g 98 [degF] 88 /min 160/74 mm[Hg] ca Yusuf [facility], 4 11:09:21 Date Recorded Body height Provider Name an d Address Organization Details Last Updated DateTime 09/15/2023 160.02 cm Flor arizmendi in [facility], 09/15/2023 09:49:48 Date Recorded Body height Body mass index (BMI) Body weight Body temperature Heart rate Systolic And Diastolic Provider Name and Address Organization Details Last Updated DateTime 160.02 cm 29.3 kg/m2 41198.4 6 g 97.1 [degF] 95 /min 170/77 mm[Hg] Flor Pandey in [facility], 08:00:59 Date Recorded Body height Body mass index (BMI) Body weight Heart rate Body temperature Systolic And Diastolic Provider Name and Address Organization Details Last Updated DateTime 160.02 cm 29.2 kg/m2 77126.3 g 84 /min 97.2 [degF] 147/71 mm[Hg] Flor Pandey in [facility], 09:06:06 Date Recorded Body height Body mass index (BMI) Body weight Heart rate Systolic And Diastolic Provider Name and Address Organization Details Last Updated DateTime 11/04/2023 160.02 cm 29.1 kg/m2 36300.15 g 79 /min 151/71 mm[Hg] ca Pandey in [facility], 11/04/2023 09:29:36 Social History Question Answer Notes LastModified by Organizat ion Details LastModified Time Tobacco Smoking Status Former Smoker MICKEY flores in [facility], 09/07/2023 11:16:21 How Many Years Have You Consumed Alcohol? [...] For COVID-19? No Information not available 10/13/2023 What Is The Highest Grade Or Level Of School You Have Completed Or The Highest Degree You Have Received? [id number] Information not available 09/07/2023 Who Is Your Employer? [employer] Information not available 09/07/2023 Are There Any [...] Smoking Tobacco? 25 Information not available 09/07/2023 How Many Years Have You Smoked Tobacco? 35 Information not available 09/07/2023 How Many Days In The Past Year Have You Consumed 4 Or More Drinks? 3 Information no t available 09/07/2023 Sex: Female Functional Status Question Answer Note LastModified by Organizat ion Details LastModified Time Do you use any illicit or recreational drugs? No Information not available 09/07/2023 Do you or have you ever used any other forms of tobacco or nicotine? Yes Information not available 09/07/2023 What is your level of alcohol consumption? Occasional Information not available 09/07/2023 Are you currently employed? 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 Current user of electronic cigarettes Information not available 09/07/2023 What is your exercise level? Occasional Information not available 09/07/2023 Mental Status Question Answer Note LastModified by Organization D etails LastModified Time Do you feel stressed (tense, restless, nervous, or anxious, or unable to sleep at night)? [id number] Information not available 09/07/2023 Family History Relationship Description Onset Age of this Age Resolved Age Notes LastModified by Organization Details LastModified Time Paternal Grandmother Malignant tumor of breast Not available 2023 11:13:52 Paternal Grandfather Malignant neoplasm of lung Not available 2023 11:14:04 Maternal Grandmother Malignant tumor of pharynx Not available 2023 11:14:28 Maternal Grandfather Malignant tumor of colon Not available 2023 11:14:51 Medical History Condition Response Anesthesia complications N High Blood Pressure N Candidate for MyRisk panel N Autoimmune Condition N Thyroid Problems N Kidney or Bladder Problems N GI Problems N Lung Disease N Depression N Defects or Inherited Disease N History of Ovarian Cancer N Anemia N History of Breast Cancer [...] SNOMED-CT Code Diagnosis ICD10 Code Diagnosis Note [id number] MD ROSLYN Mitchell MD [address] [place] [address] 09/07/2023 11:02:41 09/07/2023 14:20:33 Specialized medical examination 33165121 Z01.419 Screening for malignant neoplasm of rectum 302061347 Z12.12 Screening mammography 24 489001 Z12.31 Postmenopa usal bleeding 72339190 N95.0 [id number] MD ROSLYN Mitchell MD [address] [place] [address] 09/15/2023 09:36:13 09/15/2023 15:31:58 [id number] MD ROSLYN Mitchell MD [address] [place] [address] 10/13/2023 07:57:51 10/13/2023 10:20:35 Mass of right ovary 7932770683 5051255 R19.09 Postmenopa usal bleeding 11557407 N95.0 Endometrium thickened 44 3670306 R93.89 [id number] MD ROSLYN Mitchell MD [address] [facility] [place] [address] 10/20/2023 08:58:42 10/20/2023 12:04:56 Postmenopausal bleeding 83030777 N95.0 [id number] MD ROSLYN Mitchell MD [address] [facility] [place] [address] 11/04/2023 09:24:21 11/04/2023 11:55:47 Mass of right ovary 2134009978 0923464 R19.09 Dyspareunia 37744264 N94 .[address] ress incontinence 58885757 N39.3 Backache 190865242 M54.9 Health Concerns Section Related Observation LastModified by Organization Detai ls LastModified Time None Recorded Concern Status LastModified by Organization Details LastModified Time None Recorded Advance Directives Directive None Recorded Payers Insurance Date Sequence Insurance Name Policy Number Policy Carrera Covered Member ID Carrera Member ID Guarantor Name 12/03/2023 1 [facility] [place] Aide Luna [id number] Aide Luna Notes Date Note Type Note Provider Name and Address Organization Details Recorded Time 09/07/2023 text/html She is here as a new patient for routine annual. She has not had a tire mold engraver exam in many, many years . She had her last menses more than 2 years ago, however last week she began moderately red vaginal bleeding that lasted 7 days, now resolved. 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 with Dr. Pham. Roslyn Brandon MD [email or web address], [place], [address], [place] - [facility], 09/07/2023 13:53:23 10/13/2023 text/html She is [...] routine annual. She has not had a tire mold engraver exam in many, many years .She had [...] MD [address] [facility],[address], [place], [address], [place] [facility], 10/13/2023 09:07:11 10/20/2023 text/html She is [...] routine annual. She has not had a tire mold engraver exam in many, many years .She had [...] MD [address] [facility],[address], [place], [address], [place] [facility], 10/20/2023 [...] routine annual. She has not had a tire mold engraver exam in many, many years .She had [...] MD [address] [facility],[address], [place], [address], [place] [facility], 11/04/2023 11:19:23 OBGyn Episode No OBEpisode recorded.
[2024-12-13 14:55] LABS: Anion Gap 14 (12-20); Blood Urea Nitrogen 13 mg/dL (9-16); Calcium 10.7 mg/dL (8.4-10.2); Carbon Dioxide 26 mmol/L (22-29); Chloride 105 mmol/L (96-108); Estimated Glomerular Filt Rate > 60; Potassium 4.5 mmol/L (3.3-5.1); Sodium 140 mmol/L (135-145)
== END 2024-12-13 10:42 | disposition home or self-care (01) ==
LOC: HO.WFDLDS 10:41
PROVIDERS: Visit Provider Internal Medicine
DX: I42.9 Cardiomyopathy, unspecified (principal)
CPT/HCPCS: 36415; 80048

== ENCOUNTER 2024-12-23 09:26 | Outpatient (REF) | payer BC, SELFPAY ==
[2024-12-23 12:15] LABS: MANUAL DIFF FLAG NO
[2024-12-23 12:19] LABS: Hematocrit 40.5 % (37.0-47.0); Hemoglobin 13.7 g/dl (12.0-16.0); Imm Gran Abs Auto 0.01 X10*3/uL (0.00-0.03); Imm Gran Pct Auto 0.2 % (0.0-0.4); Lymphocytes Absolute Auto 2.7 X10*3/uL (1.2-4.9); Mean Corpuscular HGB Conc 33.8 g/dl (31.0-35.0); Mean Corpuscular Hemoglobin 29.9 pg (27.0-33.0); Mean Corpuscular Volume 88.4 fL (80.0-98.0); NRBC Abs Auto 0.000 X10*3/uL (0.0-0.012); NRBC Pct Auto 0.0 /100WBC (0.0-0.2); Platelet Count 252 X10*3/uL (160-400); Red Blood Count 4.58 X10*6/uL (4.20-5.50); White Blood Count 5.9 X10*3/uL (4.8-10.8)
[2024-12-23 13:20] LABS: Alanine Aminotransferase 33 U/L (0-31); Albumin Level 4.8 g/dL (3.5-5.0); Alkaline Phosphatase 90 U/L (39-117); Anion Gap 13 (12-20); Aspartate Amino Transferase 25 U/L (5-31); Blood Urea Nitrogen 17 mg/dL (9-16); Calcium 9.5 mg/dL (8.4-10.2); Carbon Dioxide 23 mmol/L (22-29); Chloride 107 mmol/L (96-108); Estimated Glomerular Filt Rate > 60; Potassium 4.1 mmol/L (3.3-5.1); Sodium 139 mmol/L (135-145); Total Protein 7.9 g/dL (6.5-8.0)
== END 2024-12-23 09:27 | disposition home or self-care (01) ==
LOC: HO.WFDLDS 09:26
PROVIDERS: Visit Provider Student in an Organized Health Care Education/Training Program
DX: M19.041 Primary osteoarthritis, right hand (principal); M19.042 Primary osteoarthritis, left hand; R76.8 Other specified abnormal immunological findings in serum; M25.50 Pain in unspecified joint
CPT/HCPCS: 36415; 80053; 85025; 85652; 86140

== ENCOUNTER 2024-12-28 08:39 | Outpatient (AMB) | payer BC, SELFPAY ==
--- NOTE | 2024-12-28 08:44 | MHC.OFFVIS ---
Vital Signs 12/28/24 08:53 Height 5 ft 4.57 in Weight 165 lb BMI 27.8 BP 100/60 Blood Pressure Location Lt brachial Position Sitting Pulse 90 Pulse Source Pulse Oximeter Pulse Oximetry (%) 96 Oxygen Delivery Method Room Air Intake Visit Reasons: Pain in unspecified joint Intake Note: Patient presents for pain in unspecified joint follow up. Allergies No Known Allergies Allergy (Verified 12/28/24 08:50) Medication List - Last Reconciled 12/28/24 by Casie Alan MD diclofenac sodium 1% (Arthritis Pain (diclofenac)) 4 grams topical QID Jardiance (empagliflozin) 10 mg PO DAILY NS levothyroxine (Levoxyl) 175 mcg PO DAILY metoprolol succinate ER 50 mg PO DAILY sacubitril-valsartan 24-26 mg (Entresto) 1 tab PO BID spironolactone 25 mg PO DAILY torsemide 20 mg PO DAILY HPI Comments Details: Patient is a 54-year-old female with hypothyroidism secondary to thyroidectomy and [facility] in 2001 for multifocal papillary carcinoma, hypertension complicated by systolic heart failure presents for follow up of polyarthralgias Interval History: Patient last seen 07/01/24 with mo - Topical diclofenac 1% - Following up for her polyarticular OA - Had some TTP to the MCPs and there was concern for underlying inflammatory arthritis in the setting of the positive RF - Recommended topical diclofenac 1% Today - On topical diclofenac 1% - Not much improvement - Continues to complain of hand pain and polyarticular joint pain Rheumatologic History: OA vs early RA? Initial history: Patient evaluated 05/2024 for Joint pain for the past 3 years. Involving the hands and feet. Associated with stiffness lasting about 30 mins Pain in hands wakes her up in the middle of the night. Sometimes this is associated with numbness and tingling but not consistently. Also with respect to the feet she feels that when she wakes up in the AM the feet feel sore. Hands are the same intensity of pain throughout the day. Feet are worse at night. No personal history of psoriasis, UC or Crohn's Family History: Sister with MS Current Rheumatology Medication(s): Topical diclofenac 1% gel [facility] Medical History (Updated 06/15/24 @ 13:22 by Casie Alan MD) Osteoarthritis, hand Basal cell carcinoma Right knee pain Iron deficiency anemia Hypothyroid Skin cancer Surgical History H/O: hysterectomy History of thyroidectomy S/P skin biopsy Family History Mother Hypertension Colon cancer Father Hypertension Maternal Grandmother Cancer Paternal Grandfather Cancer Sister Multiple sclerosis Social History Housing: House Alcohol intake: current Alcohol intake frequency: a few times a week Patient Tobacco Use Status: Former Tobacco user Tobacco use type: Cigarette Years Smoked: 30 e-Cigarette/Vaping Use: Currently Using service: No Current occupational status: employed 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 Current occupational exposures/hazards: No Cognitive needs: No Hearing needs: No Vision needs: Yes (reading glasses) Review of Systems Const Details: Review of Systems Constitutional: Denies fever, chills, weight loss ENT: Denies vision changes, eye pain or eye redness, dental caries, dry mouth GI: Denies nausea, vomiting, diarrhea, abdominal pain, change in BM Pulm: Denies SOB, ANTOINE, hemoptysis, wheezing Cards: Denies chest pain, palpitations Skin: Denies Raynaud's, rash, nail changes, photosensitivity, MASTER CARPENTER: Denies headaches, weakness, paresthesias, recurrent falls MSK: as per HPI All other systems reviewed and are unremarkable except noted above Physical Exam Exam Exam: Vital signs reviewed Physical Examination CONSTITUITIONAL Patient alert and cooperative. Well appearing and in no apparent painful distress MSK Hands Right Hand: Able to make a fist. No swelling but some TTP of the 2nd and 3rd MCPs and 3rd PIP Left Hand: Able to make a fist. No swelling but some TTP of the 2nd MCP and 3rd and 4th PIP TTP of bilateral 1CMC joints Herbedens nodes noted bilaterally Mild squarring of the 1st CMC Wrists Right Wrist: Full ROM. 70 degrees of wrist flexion, 80 degrees of wrist extension. No swelling Left Wrist: Full ROM. 70 degrees of wrist flexion, 80 degrees of wrist extension. No swelling Mild TTP bilaterally Elbows Right Elbow: Full ROM. No swelling or TTP. No TTP of the medial and lateral epicondyles Left Elbow: Full ROM. No swelling or TTP. No TTP of the medial and lateral epicondyles Shoulders Right shoulder: Full ROM. No swelling noted. No TTP of the subacromial bursa or posterior shoulder Left shoulder: Full ROM. No swelling noted. No TTP subacromial bursa or posterior shoulder TTP of bilateral AC joints Knees Right knee: Full ROM. No swelling noted. No TTP of the knee joint lie or pes anserine bursa Left knee: Full ROM. No swelling noted. No TTP of the knee joint lie or pes anserine bursa. Ankles Right ankle: Good ankle dorsiflexion and plantar flexion. No swelling. No TTP of the ankle joint Left ankle: Good ankle dorsiflexion and plantar flexion. No swelling. No TTP of the ankle joint Feet Right foot: Positive squeeze test Left foot: Positive squeeze test Tender points? No tenderness to palpation of the bilateral trapezius, supraspinatus, anterior costochondral junctions, bilateral suboccipital muscle insertions SKIN No rashes Results Reviewed Results Reviewed: Laboratory Tests 12/23/24 09:28 WBC 5.9 RBC 4.58 Hgb 13.7 Hct 40.5 Plt Count 252 ESR 14 Sodium 139 Potassium 4.1 Chloride 107 Carbon Dioxide 23 BUN 17 H Creatinine 0.89 AST 25 ALT 33 H Alkaline Phosphatase 90 C-Reactive Protein 0.25 Rheumatology Labs 02/12/24 06/15/24 07:40 13:27 Rheumatoid Factor 20.8 H Cycl Citrul Peptide IgG <16 XR Bilateral Hands and Wrists 05/2024 FINDINGS (Left Hand): The bones and soft tissues are normal. No fracture. Alignment is anatomic. Mild loss of PIP and DIP joint spaces seen. No bony erosive changes. There is minimal periarticular spurring DIP joint second digit. The soft tissues are normal. There is a negative ulnar variance. IMPRESSION: Mild degenerative changes PIP and DIP joints with periarticular spurring DIP joint joint second digit. No acute fracture or dislocation FINDINGS (Right): The bones and soft tissues are normal. No fracture. Alignment is anatomic. Joint spaces are maintained. No erosions or soft tissue calcifications. IMPRESSION: Unremarkable right hand and wrist exam. XR Bilateral Foot 05/2024 FINDINGS (Left foot): The bones and soft tissues are normal. No fracture. Alignment is anatomic. Joint spaces are maintained. IMPRESSION: Unremarkable left foot exam. FINDINGS (right foot): There is partial prosthesis along the proximal phalanx head first digit in satisfactory alignment with gross metatarsal head. The joint spaces are preserved. No free acute fracture or lytic process seen. The ankle mortise and subtalar joints are normal. IMPRESSION: Prosthesis proximal phalangeal head was digit in satisfactory alignment. Otherwise rest of the right foot is unremarkable. DEXA 02/2024 FINDINGS: LEFT FEMUR, NECK: BMD 0.880 g/cm2, Z-score -0.4, T-score -1.1, osteopenia. LEFT FEMUR, TOTAL: BMD 0.958 g/cm2, Z-score 0.0, T-score -0.4, normal. AP SPINE L1-L4: BMD 1.138 g/cm2, Z-score 0.0, T-score -0.3, normal FRAX: Major osteoporotic fracture (clinical spine, forearm, hip or shoulder) 4.8%. Hip fracture 0.5%. Assessment & Plan Assessment & Plan (1) Polyarthralgia: Code(s): M25.50 - Pain in unspecified joint Category: Medical Plan: #Polyarthralgias Patient is a 54-year-old female with previous history of papillary thyroid cancer status post thyroidectomy and radio ablative therapy on supratherapeutic doses of levothyroxine complicated by systolic heart failure now here with polyarthralgias. Her examination did not show any evidence of overt synovitis however she did tenderness to palpation of the MCPs and MTPs bilaterally. With a positive rheumatoid factor this may be indicative of early or mild rheumatoid arthritis. Cardiac issues are stable We will try a course of Hydroxychloroquine Plan - Hydroxychloroquine 200mg bid Mon - Sat; 200mg od - Sun - RTC 4 months - Labs before visit: CBC, CMP, ESR, CRP (2) Osteoarthritis, hand: Code(s): M19.049 - Primary osteoarthritis, unspecified hand Category: Medical Qualifiers: Osteoarthritis type: primary Laterality: bilateral Qualified Code(s): M19.041 - Primary osteoarthritis, right hand; M19.042 - Primary osteoarthritis, left hand Plan: #Bilateral Hand OA Patient with evidence of bilateral hand OA: Heberden's nodes to the DIPs as well as tenderness to palpation of these joints. She also has a evidence of likely knee osteoarthritis with crepitations noted bilaterally. Recommended to continue topical diclofenac 4 times a day. Plan - Topical diclofenac up to 4 times a day Plan I spent 30 minutes reviewing the record and labs, taking a history, examining the patient, discussing the treatment plan and documenting in the medical record Orders: Orders Complete Blood Count Auto Diff 4 Months Z79.899 - Other mcfp (current) drug therapy C Reactive Protein 4 Months Z79.89 - Other mcfp (current) drug therapy Erythrocyte Sedimentation Rate 4 Months Z79.899 - Other terminal block assembler (current) drug therapy Comprehensive Met. Panel 4 Months Z79. - Other terminal block assembler (current) drug therapy Medications: New hydroxychloroquine (Plaquenil) Take 1 tablet twice a day Thu-Thu and one tablet daily on Sundays 200 mg PO BID 180 tabs 1RF 90 days M19.90 - Unspecified osteoarthritis, unspecified site Coding Level of Care Code Est Pt Level 4 (65347) Complex EM visit Add On G2211 Diagnoses Polyarthralgia M25.50 Primary osteoarthritis of both hands M19.041; M19.042 Osteoarthritis type: primary Laterality: bilateral
[2024-12-28 08:53] VITALS: BP 100/60; PULSE 90; O2SAT 96; BMI 27.8
== END 2024-12-28 09:06 | disposition home or self-care (01) ==
LOC: HO.RHES 08:40
PROVIDERS: PCP Internal Medicine; Visit Provider Student in an Organized Health Care Education/Training Program
DX: M25.50 Pain in unspecified joint (principal); M19.041 Primary osteoarthritis, right hand; M19.042 Primary osteoarthritis, left hand
CPT/HCPCS: 99214

== ENCOUNTER 2024-12-30 09:31 | Outpatient (REF) | payer BC, SELFPAY ==
[2024-12-30 12:00] LABS: Anion Gap 12 (12-20); Blood Urea Nitrogen 15 mg/dL (9-16); Calcium 9.9 mg/dL (8.4-10.2); Carbon Dioxide 25 mmol/L (22-29); Chloride 106 mmol/L (96-108); Estimated Glomerular Filt Rate > 60; Potassium 4.0 mmol/L (3.3-5.1); Sodium 139 mmol/L (135-145)
== END 2024-12-30 09:32 | disposition home or self-care (01) ==
LOC: HO.WFDLDS 09:31
PROVIDERS: Visit Provider Nurse Practitioner
DX: I50.21 Acute systolic (congestive) heart failure (principal)
CPT/HCPCS: 36415; 80048

== ENCOUNTER 2025-03-29 13:54 | Outpatient (REF) | payer BC, SELFPAY | END 2025-03-29 13:55 | disposition home or self-care (01) | LOC: HO.LAB 13:54 | PROVIDERS: PCP Internal Medicine; Visit Provider Nurse Practitioner | DX: K21.9 Gastro-esophageal reflux disease without esophagitis (principal); I50.22 Chronic systolic (congestive) heart failure; R19.7 Diarrhea, unspecified; R76.89 Other specified abnormal immunological findings in serum; Z01.818 Encounter for other preprocedural examination; Z87.891 Personal history of nicotine dependence | CPT/HCPCS: 36415; 82785; 83013; 86003 ==

== ENCOUNTER 2025-03-29 13:54 | Outpatient (AMB) | payer BC, SELFPAY ==
--- NOTE | 2025-03-29 13:57 | A.OFFVIS_ITS ---
Vital Signs 03/29/25 13:58 Height 5 ft 4 in Weight 167 lb 8.821 oz BMI 28.8 BP 124/66 Blood Pressure Location Lt brachial Position Sitting Pulse 81 Intake Visit Reasons: colo screen Intake Note: New patient in office today for colonoscopy screening. CC: Patient reports mostly loose stools, occasional indigestion, upper abdominal pressure right under her ribs, and abd bloating. She states that she had a hysterectomy last year and was placed in colace to avoid constipation and she stopped in April. She's noticed that ever since stopping the colace she's gained 10 pounds. 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 She is referred by Esther Elise. PMX Systolic CHF EF 40% Positive rheumatoid factor History of basal cell carcinoma Hypothyroid Osteoarthritis of the hands Thyroid cancer ? * SURGICAL HISTORY Hysterectomy Thyroidectomy Skin biopsy toe surgery with ball joint implant * ALLERGIES: NKDA * [facility] LABS: Laboratory Tests 12/23/24 12/30/24 09:28 09:37 WBC 5.9 Hgb 13.7 Hct 40.5 Plt Count 252 Estimated GFR > 60 Total Bilirubin 0.4 AST 25 ALT 33 H Alkaline Phosphatase 90 C-Reactive Protein 0.25 TODAY'S VISIT First colonoscopy:Yes Bowel or upper GI problems:Loose stools and bloating, intermittent, no yet tied to type of foods, increased burping with bloating. No FHX of food allergies, or diarrheal syndromes. Mild vomiting in AM after putting in dentures. Cardiac or respiratory problems: HF well controlled EF 40%, no respiratory problems. Applications Specialist is in [place]. Problems with anesthesia or sedation: No ID problems: No FHX: Mother had CRC in 70's and survived. Sister with partial bowel resection ? intersusseption. [facility] Medical History (Updated 03/29/25 @ 14:37 by DEBI Terrell) Physical exam Osteoarthritis, hand Basal cell carcinoma Right knee pain Iron deficiency anemia Hypothyroid Skin cancer Surgical History (Updated 03/29/25 @ 14:10 by ABEBA Lin) H/O foot surgery H/O: hysterectomy History of thyroidectomy S/P skin biopsy Family History (Updated 03/29/25 @ 14:09 by ABEBA Lin) Mother Hypertension Colon cancer Father Hypertension Maternal Grandmother Cancer Paternal Grandfather Cancer Sister Multiple sclerosis Social History Housing: House Alcohol intake: current Alcohol intake frequency: a few times a week Patient Tobacco Use Status: Former Tobacco user Tobacco use type: Cigarette Years Smoked: 30 e-Cigarette/Vaping Use: Currently Using service: No Current occupational status: employed 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 Current occupational exposures/hazards: No Cognitive needs: No Hearing needs: No Vision needs: Yes (reading glasses) Review of Systems Const Denies fatigue, Denies fever(s), Denies night sweats, Denies poor appetite and Denies weight loss ENT Reports Normal hearing present, Denies dental pain, Denies dysphagia, Denies hearing loss, Denies mouth pain, Denies odynophagia, Denies throat swelling, Denies tongue swelling and Reports other (Dentition adequate) Card Reports no additional complaints Resp Reports no additional complaints GI Details: Denies abdominal pain, Denies melena, Denies bloating, Denies hematochezia, Denies constipation, Denies GI cramping, Denies dysphagia, Denies excessive flatus, Denies early satiety, Reports heartburn, Denies diarrhea, Denies nausea, Denies odynophagia, Denies vomiting and Denies hematemesis Skin/Breast Denies pruritus, Denies lesions, Denies rash and Denies jaundice Neuro Reports Normal hearing present and Denies Abnormal speech present Endo Denies fatigue Aller/Immun Denies throat swelling and Denies tongue swelling Physical Exam Vital Signs: Last Vital Signs Pulse 81 03/29/25 13:58 BP 124/66 03/29/25 13:58 BMI result Body Mass Index 28.8 Const General: cooperative, no acute distress, well developed and well groomed Nutritional Appearance: well nourished and overweight Orientation/consciousness: oriented to person, oriented to place and oriented to time Limitations: No language barrier HEENT Head: Yes normocephalic and Yes atraumatic Eyes General: appearance normal, both eyes and all related structures Pupils: Equal, round and reactive pupils present Neck Neck: Yes normal visual inspection and Yes no lymphadenopathy Thyroid: Thyroid normal Resp Effort & Inspection: normal respiratory effort and able to speak in complete sentences Auscultation: clear to auscultation bilaterally Cardio Rate: regular rate Rhythm: regular rhythm Heart sounds: Normal, physiologic split S2 sound present Peripheral pulses: radial pulses present and posterior tibial pulses present GI Inspection: No distended and No Abdominal panniculus present Palpation (GI): Soft to palpation, nontender, no guarding, not rigid and No hepatosplenomegaly present Percussion: Yes normal to percussion Auscultation: normal bowel sounds Rectal Exam - Female: deferred Skin General skin exam: no rashes or lesions noted, turgor normal, skin not dry, no jaundice, No spider nevi and no striae Rashes: no rashes Nails: normal Neuro General: oriented to person, oriented to place and oriented to time Cranial nerves: Yes Equal, round and reactive pupils present and Yes Normal hearing present Speech: No Abnormal speech present Extrem General: Yes normal to inspection, No clubbing, No cyanosis and No edema Psych Appearance: grossly normal and well kempt Mental Status: mental status grossly normal Speech and movement: Normal speech and movement present Affect: normal affect Attitude: cooperative Thought process: Normal thought process present and not confabulating Thought content: Normal thought content present Insight: Good insight present (Psych) Judgement: Good judgement present (Psych) Assessment & Plan Assessment & Plan (1) Rheumatoid factor positive: Code(s): R76.8 - Other specified abnormal immunological findings in serum Category: Medical (2) Systolic CHF, chronic: Code(s): I50.22 - Chronic systolic (congestive) heart failure Category: Medical (3) Pre-op examination: Code(s): Z01.818 - Encounter for other preprocedural examination Category: Medical (4) GERD (gastroesophageal reflux disease): Code(s): K21.9 - Gastro-esophageal reflux disease without esophagitis Category: Medical (5) Diarrhea: Code(s): R19.7 - Diarrhea, unspecified Category: Medical Plan First colonoscopy:Yes Bowel or upper GI problems:Loose stools and bloating, intermittent, no yet tied to type of foods, increased burping with bloating. No FHX of food allergies, or diarrheal syndromes. Mild vomiting in AM after putting in dentures. Cardiac or respiratory problems: HF well controlled EF 40%, no respiratory problems. Applications Specialist is in [place]. Problems with anesthesia or sedation: No ID problems: No FHX: Mother had CRC in 70's and survived. Sister with partial bowel resection ? intersusseption. - Follow up on colonoscopy scheduling within eight weeks as instructed. - Start taking famotidine at bedtime as instructed to address your reflux symptoms. - Complete the H. pylori breath test and barium swallow as discussed. - Keep a diary of food intake to help identify possible food triggers. Orders: Orders H Pylori Breath Test 03/29/25 [place] barium swallow 03/29/25 K21.9 - Gastro-esophageal reflux disease without esophagitis Transglutaminase IgA 03/29/25 R19.7 - Diarrhea, unspecified Transglutaminase Ab IgG 03/29/25 R19.7 - Diarrhea, unspecified Rast Allergen 03/29/25 R19.7 - Diarrhea, unspecified Pancreatic Elastase-1 03/29/25 R19.7 - Diarrhea, unspecified Referrals GI Procedure Notification Z01.818 - Encounter for other preprocedural examination, I50.22 - Chronic systolic (congestive) heart failure, R76.8 - Other specified abnormal immunological findings in serum Medications: New famotidine (Pepcid) 40 mg PO BEDTIME 30 tabs 3RF K21.9 - Gastro-esophageal reflux disease without esophagitis sod sulf-pot chloride-mag sulf 1.479-0.188- 0.225 gram (Sutab) PO PER PKG DIR for colonoscopy prep 24 tabs 0RF Coding Level of Care Code New Pt Level 3 (65275) Diagnoses Rheumatoid factor positive R76.8 Systolic CHF, chronic I50.22 Pre-op examination Z01.818 GERD (gastroesophageal reflux disease) K21.9 Diarrhea R19.7
[2025-03-29 13:58] VITALS: BP 124/66; PULSE 81; BMI 28.8
--- OUTSIDE RECORDS SUMMARY | 2025-03-29 17:08 | XMS_ITS | Data Portability ---
Author Organization [place] - [facility],, ROSLYN BRANDON MD Address [address] [address] Care Team Providers Care Sprinkling System Installer Name Role Phone SHAYYA JOHN Primary Care Provider Assessment No assessment recorded. Plan of Treatment Reminders Order Date Submit Date Provider Last Modified By Organization Details Last Modified Time Details Appointments None recorded. Lab biopsy, endometria l 2023 024 [email or web address] [facility] (Centralized Electronic Ordering - All Locations), Patient Can Go To The Location Of Their Choice, [id number] 4 07:34:58 test, urine 2023 024 [email or web address] 1 In-Office Order, Internal Use Only DO Not Attach Compendium DO Not Attach Compendium, Do Not Delete/merge, [id number] 4 09:56:11 ca 125, serum 2023 024 [...] Go To The Location Of Their Choice, [id number] 4 16:06:44 cytology report, thin prep, smear or scraping, cervical or vaginal 2023 024 ALAN [facility] (Centralized Electronic Ordering - All Locations), Patient Can Go To The Location Of Their Choice, [id number] 4 12:07:00 estradiol, serum 2023 024 ALAN [facility] (Centralized Electronic Ordering - All Locations), Patient Can Go To The Location Of Their Choice, [id number] 4 10:06:38 FSH (follicle- stimulatin g hormone), serum 2023 024 ALAN [facility] (Centralized Electronic Ordering - All Locations), Patient Can Go To The Location Of Their Choice, [id number] 4 10:06:40 hemoglobin , gastrointe stinal, stool 2023 024 [email or web address] 1 In-Office Order, Internal Use Only DO Not Attach Compendium DO Not Attach Compendium, Do Not Delete/merge, [id number] 13:33:18 Referral gynecologi c surgery referral - 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 Imaging MRI, pelvis, w/ contrast - hypoechoic enlargemen t of right ovary, question possible fibroma, also has post menopausal bleeding and thickened endometriu m 2023 024 [email or web address] [facility] ([facility]), [address], [place], [address], 4 07:35:14 MAMMO, screening, digital, bilateral - Breast Aspiration and/or Biopsy if needed 2023 024 [email or web address] [facility], [address], [address], [place], [address], 5 07:19:33 Medication Orders None recorded. Patient TargetsNo targets recorded. Patient Instructions Encounter Date Encounter Id Patient Instructions Last Modified By Organization Details Last Modified Time 09/07/2023 [id number] learning about healthy weight Not available 09/07/2023 13:13:23 vaginal bleeding after menopause: care instructions Not available 09/07/2023 13:13:40 She is here as a new patient for routine annual. She has not had a driller and reamer exam in many, many years . She [...] the breast. Not available 09/07/2023 13:53:01 10/13/2023 [id number] vaginal bleeding after menopause: care instructions Not [...] routine annual. She has not had a driller and reamer exam in many, many years . She [...] if so should she see a regular driller and reamer, or a driller and reamer onc. Face to face discussion 30 minutes Not available 10/13/2023 08:39:44 10/20/2023 [id number] postmenopausal bleeding information Not available 10/20/2023 09:54:56 [...] routine annual. She has not had a driller and reamer exam in many, many years . She [...] if stable. Not available 10/20/2023 09:54:55 11/04/2023 [id number] back pain: care instructions laura Not available [...] routine annual. She has not had a driller and reamer exam in many, many years . She [...] REPAI R ARE PRESE NT. Not Available [address], [address], 09/11/2023 12:06:59 09/07/19 24 09/11/2023 IGP, RFX APTIM A HPV ASCU specimen adequacy: Commen t Satis facto ry for evalu ation . Endoc ervic al and/o r squam ous metap lasti c cells (endo cervi tha compo nent) are prese nt. Not Available [address], [address], 09/11/2023 12:06:59 09/07/19 24 09/11/2023 IGP, RFX APTIM A HPV ASCU clinician provided ICD10: Zaira t Z01.4 19 N95.0 Not Available [address], [address], 09/11/2023 12:06:59 09/07/19 24 09/11/2023 IGP, RFX APTIM A HPV ASCU performed by: Zaira Hooper il, Cytot echno logis t (ASCP ) Not Available [address], [address], 09/11/2023 12:06:59 09/07/19 24 09/11/2023 IGP, RFX APTIM A HPV ASCU electronical ly signed by: Zaira rios MD, Patho logis t Not Available [address], [address], 09/11/2023 12:06:59 09/07/19 24 09/11/2023 IGP, RFX APTIM A HPV ASCU . . Not Available [address], [address], 09/11/2023 12:06:59 09/07/19 24 09/11/2023 IGP, RFX [...] repor ts do occur . Not Available [address], [address], 09/11/2023 12:06:59 09/07/19 24 09/11/2023 IGP, RFX APTIM A HPV ASCU test methodology: Zaira manning This liqui d based ThinP rep(R ) pap test was scree ulises with the use of an image guide rupal armijo. Not Available [address], [address], 09/11/2023 12:06:59 09/07/19 24 09/11/2023 IGP, RFX APTIM A HPV ASCU . Commen t The HPV DNA refle x crite tanika were not met with this speci men resul t there fore, no HPV testi ng was perfo rmed. Not Available [address] [place], [address], 09/11/2023 12:06:59 09/07/19 24 09/07/2023 hemog lobin , gastr ointe mariano l, stool Occult Blood negati ve Not Available In-Office Order Internal Use Only DO Not Attach Compendium DO Not Attach Compendium, Do Not Delete/merge, [id number] 09/07/2023 11:08:14 09/08/19 24 09/09/2023 ESTRA DIOL estradiol 63.1 pg/mL Adult Femal e Range Folli cular phase 12.5 - 166.0 Ovula tion phase 85.8 - 498.0 Lutea l phase 43.8 - 211.0 Postm enopa usal <6.0 - 54.7 Pregn delilah 1st trime ster 215.0 - >4300 .0 Amor ECLIA metho dolog y Not Available [facility] ([facility]) [address] [facility], [place], [address], 09/09/2023 10:06:38 09/08/19 24 09/09/2023 FSH FSH 41.7 mIU/m L Adult Femal e Range Folli cular phase 3.5 - 12.5 Ovula tion phase 4.7 - 21.5 Lutea l phase 1.7 - 7.7 Postm enopa usal 25.8 - 134.8 Not Available [facility] ([facility]) [address] [facility], [place], [address], 09/09/2023 10:06:40 10/14/19 24 10/15/2023 CANCE R ANTIG EN (CA) 125 cancer antigen (Ca) 125 13.1 U/mL 0.0-38 .1 Amor Diagn ostic s Elect amor milum inesc ence Immun oassa y (ECLI A) Value s obtai ulises with diffe rent assay metho ds or kits canno t be used inter [facility] eably . Resul ts canno t be inter prete d as absol merary evide nce of the prese nce or absen ce of jennifer neumann se. Not Available [facility] ([facility]) [address] [facility], [place], [address], 10/15/2023 08:09:05 10/14/19 24 10/15/2023 ESTRA DIOL estradiol 60.1 pg/mL Adult Femal e Range Folli cular phase 12.5 - 166.0 Ovula tion phase 85.8 - 498.0 Lutea l phase 43.8 - 211.0 Postm enopa usal <6.0 - 54.7 Pregn delilah 1st trime ster 215.0 - >4300 .0 Amor ECLIA metho dolog y Not Available [facility] ([facility]) [address] [facility], [place], [address], 10/15/2023 08:09:06 10/14/19 24 10/15/2023 ANTI- MULLE [...] or kits canno t be used inter [facility] . Age-d epend ent refer ence inter [...] Sarah napol is, [place]. Not Available [facility] ([facility]) [address] [facility], [place], [address], 10/15/2023 08:09:07 10/14/19 24 10/20/2023 INHIB IN [...] or kits canno t be used inter [facility] . Not Available [facility] ([facility]) [address] [facility], [place], [address], 10/22/2023 16:06:44 10/14/19 24 10/22/2023 INHIB IN [...] or kits canno t be used inter [facility] . Not Available [facility] ([facility]) [address] [facility], [place], [address], 10/22/2023 16:06:44 10/20/19 24 10/20/2023 [facility] [...] d out by: Vinnie Holland M.D. / [facility] Clini tha Histo ry: 53-ye ar-ol [...] Avenu e, [place] (CLIA #[id number]). Its perfo rmanc e joshua cteri stics deter mined by [facility]. Bladimir Holder M.D. Medic al Direc tor of Surgi tha Robson Burt M.D. Medic al Direc tor Cytop athol ogy Phone #: [phone], On-Ca ll Patho logis t: [id number] Not Available [facility] (Centralized Electronic Ordering - All Locations) Patient Can Go To The Location Of Their Choice, [id number] 10/26/2023 14:23:54 10/20/19 24 10/20/2023 pregn delilah test, urine HCG negati ve Not Available In-Office Order Internal Use Only DO Not Attach Compendium DO Not Attach Compendium, Do Not Delete/merge, [id number] 10/20/2023 09:56:02 10/06/19 24 10/05/2023 US, pelvi s, trans abdom inal + trans vagin al No observ ation record ed. [email or web address] Not Available 2023 08:52:43 10/30/19 24 10/29/2023 MRI, pelvi s, w/ contr ast No observ ation record ed. sharad [facility] [address] [place], [address], 11/04/2023 10:15:35 Result Notes None recorded. Problems Name Problem SNOMED Code Status Onset Date Resolution Date Notes Provider Name and Address Organization Details Recorded Time Mass of right ovary 7392365406170 9102 Active 2023 Roslyn Brandon MD [address] [facility],[address], [place], [address], [place] - [facility], 4 11:14:14 Dyspareunia 67175600 Active 2023 Roslyn Brandon MD [address], [place], [address], [place] [facility], 4 11:14:26 Backache 462448855 Active 2023 Roslyn Brandon MD [address] [facility],[address], [place], [address], [place] [facility], 4 11:14:33 Genuine stress incontinenc e 07416834 Active 2023 Roslyn Brandon MD [address] [facility],[address], [place], [address], [place] [facility], 4 11:14:41 Problem Notes None recorded. Procedures Surgical History Date Name Laterality Status Provider Name and Address Organization Details Recorded Time 03/24/20 24 laparoscopic hysterectomy completed Roslyn Brandon MD [address], [place], [address], [place] - [facility], 06/22/2024 08:18:33 10/20/19 24 Endometrial Biopsy completed Roslyn Brandon MD [address], [place], [address], [place] - [facility], 10/20/2023 09:55:35 Removal of thyroid completed ca Pandey in [facility], 09/07/2023 11:18:19 cone biopsy completed Roslyn Brandon MD [address], [place], [address], [place] [facility], 09/07/2023 13:33:08 Imaging Results None recorded. Procedure [...] Updated DateTime 4 160.02 cm 29.4 kg/m2 18225.0 5 g 98 [degF] 88 /min 160/74 mm[Hg] ca Yusuf [facility], 4 11:09:21 Date Recorded Body height Provider Name an d Address Organization Details Last Updated DateTime 09/15/2023 160.02 cm Flor arizmendi in [facility], 09/15/2023 09:49:48 Date Recorded Body height Body mass index (BMI) Body weight Body temperature Heart rate Systolic And Diastolic Provider Name and Address Organization Details Last Updated DateTime 160.02 cm 29.3 kg/m2 21948.4 6 g 97.1 [degF] 95 /min 170/77 mm[Hg] Flor Pandey in [facility], 08:00:59 Date Recorded Body height Body mass index (BMI) Body weight Heart rate Body temperature Systolic And Diastolic Provider Name and Address Organization Details Last Updated DateTime 160.02 cm 29.2 kg/m2 55322.3 g 84 /min 97.2 [degF] 147/71 mm[Hg] Flor Pandye in [facility], 09:06:06 Date Recorded Body height Body mass index (BMI) Body weight Heart rate Systolic And Diastolic Provider Name and Address Organization Details Last Updated DateTime 11/04/2023 160.02 cm 29.1 kg/m2 74611.15 g 79 /min 151/71 mm[Hg] ca Pandey in [facility], 11/04/2023 09:29:36 Social History Question Answer Notes LastModified by Organizat ion Details LastModified Time Tobacco Smoking Status Former Smoker MICKEY flores in [facility], 09/07/2023 11:16:21 How Many Years Have You [...] Or The Highest Degree You Have Received? [id number] Information not available 09/07/2023 Who Is Your Employer? [employer] Information not available 09/07/2023 Are There Any [...] anxious, or unable to sleep at night)? [id number] Information not available 09/07/2023 Family History Relationship Description Onset Age of this Age Resolved Age Notes LastModified by Organization Details LastModified Time Paternal Grandmother Malignant neoplasm of breast Not available 2023 11:13:52 Paternal Grandfather Malignant neoplasm of lung Not available 2023 11:14:04 Maternal Grandmother Malignant neoplasm of pharynx Not available 2023 11:14:28 Maternal Grandfather Malignant neoplasm of colon Not available 2023 11:14:51 Medical History Condition Response Anesthesia complications N High Blood Pressure N Candidate for MyRisk panel N Autoimmune Condition N Lung Disease N Depression N Defects or Inherited Disease N History of Ovarian Cancer N BRCA testing in past N Anxiety Disorder N Arthritis Y Infertility N History of Cancer N Endometriosis N Thyroid Problems N Kidney or Bladder Problems N GI Problems N Anemia N [...] Diagnosis SNOMED-CT Code Diagnosis ICD10 Code Diagnosis IMO Codes Diagnosis Note [id number] MD ROSLYN Mitchell MD [address] [place] [address] 09/07/2023 11:02:41 09/07/2023 14:20:33 Specialized medical examination 73863966 Z01.419 Screening for malignant neoplasm of rectum 195370188 Z12.12 Screening mammography 24 625864 Z12.31 Postmenopa usal bleeding 58224983 N95.0 [id number] MD ROSLYN Mitchell MD [address] [place] [address] 09/15/2023 09:36:13 09/15/2023 15:31:58 [id number] MD ROSLYN Mitchell MD [address] [place] [address] 10/13/2023 07:57:51 10/13/2023 10:20:35 Mass of right ovary 9695245894 2286694 R19.09 Postmenopa usal bleeding 68291338 N95.0 Endometrium thickened 44 9662941 R93.89 [id number] MD ROSLYN Mitchell MD [address] [facility] [place] [address] 10/20/2023 08:58:42 10/20/2023 12:04:56 Postmenopausal bleeding 42373153 N95.0 [id number] MD ROSLYN Mitchell MD [address] [facility] [place] [address] 11/04/2023 09:24:21 11/04/2023 11:55:47 Mass of right ovary 3454015604 9370418 R19.09 Dyspareunia 80883318 N94 .[address] ress incontinence 22248799 N39.3 Backache 595895578 M54.9 Health Concerns Section Related Observation LastModified by Organization Detai ls LastModified Time None Recorded Concern Status LastModified by Organization Details LastModified Time None Recorded Advance Directives Directive None Recorded Payers Insurance Date Sequence Insurance Name Policy Number Policy Carrera Covered Member ID Carrera Member ID Guarantor Name 12/03/2023 1 [facility] Aide Luna [id number] Aide Luna Notes Date Note Type Note Provider Name and Address Organization Details Recorded Time 09/07/2023 text/html She is here as a new patient for routine annual. She has not had a driller and reamer exam in many, many years . She had her last menses more than 2 years ago, however last week she began moderately red vaginal bleeding that lasted 7 days, now resolved. 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 with Dr. Pham. Roslyn Brandon MD [address] [facility],[address], [place], [address], [place] - [facility], 09/07/2023 13:53:23 10/13/2023 text/html She is here [...] routine annual. She has not had a driller and reamer exam in many, many years .She had [...] she is interested. Roslyn Brandon MD [address] [facility],[address], [place], [address], [place] - [facility], 10/13/2023 09:07:11 10/20/2023 text/html She is here [...] routine annual. She has not had a driller and reamer exam in many, many years .She had [...] she is interested. Roslyn Brandon MD [address] [facility],[address], [place], [address], [place] - [facility], [...] routine annual. She has not had a driller and reamer exam in many, many years .She had [...] she is interested. Roslyn Brandon MD [address] [facility],[address] [address], [place] [facility], 11/04/2023 11:19:23 OBGyn Episode No OBEpisode recorded.
== END 2025-03-29 15:04 | disposition home or self-care (01) ==
LOC: HO.HGI 13:55
PROVIDERS: PCP Internal Medicine; Visit Provider Nurse Practitioner
DX: I50.22 Chronic systolic (congestive) heart failure (principal); M05.79 Rheumatoid arthritis with rheumatoid factor of multiple sites without organ or systems involvement; K21.9 Gastro-esophageal reflux disease without esophagitis; R19.7 Diarrhea, unspecified
CPT/HCPCS: 99203

== ENCOUNTER 2025-04-29 10:53 | Outpatient (REF) | payer BC, SELFPAY ==
--- OUTSIDE RECORDS SUMMARY | 2025-04-29 10:58 | XMS_ITS | Data Portability ---
Author Organization [place] - [facility],, ROSLYN BRANDON MD Address [address] [address] Care Team Providers Care Teleprinter Installer Name Role Phone SHAYYA JOHN Primary Care Provider Assessment No assessment recorded. Plan of Treatment Reminders Order Date Submit Date Provider Last Modified By Organization Details Last Modified Time Details Appointments None recorded. Lab biopsy, endometria l 2023 024 [email or web address] [facility] (Centralized Electronic Ordering - All Locations), Patient Can Go To The Location Of Their Choice, [id number] 4 07:34:58 test, urine 2023 024 [email or web address] 1 In-Office Order, Internal Use Only DO Not Attach Compendium DO Not Attach Compendium, Do Not Delete/merge, [id number] 4 09:56:11 ca 125, serum 2023 024 [...] Go To The Location Of Their Choice, [id number] 4 16:06:44 cytology report, thin prep, smear or scraping, cervical or vaginal 2023 024 ALAN [facility] (Centralized Electronic Ordering - All Locations), Patient Can Go To The Location Of Their Choice, [id number] 4 12:07:00 estradiol, serum 2023 024 ALAN [facility] (Centralized Electronic Ordering - All Locations), Patient Can Go To The Location Of Their Choice, [id number] 4 10:06:38 FSH (follicle- stimulatin g hormone), serum 2023 024 ALAN [facility] (Centralized Electronic Ordering - All Locations), Patient Can Go To The Location Of Their Choice, [id number] 4 10:06:40 hemoglobin , gastrointe stinal, stool 2023 024 [email or web address] 1 In-Office Order, Internal Use Only DO Not Attach Compendium DO Not Attach Compendium, Do Not Delete/merge, [id number] 13:33:18 Referral gynecologi c surgery referral - 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 Imaging MRI, pelvis, w/ contrast - hypoechoic enlargemen t of right ovary, question possible fibroma, also has post menopausal bleeding and thickened endometriu m 2023 024 [email or web address] [facility] ([facility]), [address], [place], [address], 4 07:35:14 MAMMO, screening, digital, bilateral - Breast Aspiration and/or Biopsy if needed 2023 024 [email or web address] [facility], [address], [address], [place], [address], 5 07:19:33 Medication Orders None recorded. Patient TargetsNo targets recorded. Patient Instructions Encounter Date Encounter Id Patient Instructions Last Modified By Organization Details Last Modified Time 09/07/2023 [id number] learning about healthy weight Not available 09/07/2023 13:13:23 vaginal bleeding after menopause: care instructions Not available 09/07/2023 13:13:40 She is here as a new patient for routine annual. 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 She [...] the breast. Not available 09/07/2023 13:53:01 10/13/2023 [id number] vaginal bleeding after menopause: care instructions Not [...] routine annual. 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 She [...] if so should she see a regular internal combustion engine subassembler, or a internal combustion engine subassembler onc. Face to face discussion 30 minutes Not available 10/13/2023 08:39:44 10/20/2023 [id number] postmenopausal bleeding information Not available 10/20/2023 09:54:56 [...] routine annual. 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 She [...] if stable. Not available 10/20/2023 09:54:55 11/04/2023 [id number] back pain: care instructions laura Not available [...] routine annual. 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 She [...] REPAI R ARE PRESE NT. Not Available [address], [address], 09/11/2023 12:06:59 09/07/19 24 09/11/2023 IGP, RFX APTIM A HPV ASCU specimen adequacy: Commen t Satis facto ry for evalu ation . Endoc ervic al and/o r squam ous metap lasti c cells (endo cervi tha compo nent) are prese nt. Not Available [address], [address], 09/11/2023 12:06:59 09/07/19 24 09/11/2023 IGP, RFX APTIM A HPV ASCU clinician provided ICD10: Zaira t Z01.4 19 N95.0 Not Available [address], [address], 09/11/2023 12:06:59 09/07/19 24 09/11/2023 IGP, RFX APTIM A HPV ASCU performed by: Zaira Hooper il, Cytot echno logis t (ASCP ) Not Available [address], [address], 09/11/2023 12:06:59 09/07/19 24 09/11/2023 IGP, RFX APTIM A HPV ASCU electronical ly signed by: Zaira rios MD, Patho logis t Not Available [address], [address], 09/11/2023 12:06:59 09/07/19 24 09/11/2023 IGP, RFX APTIM A HPV ASCU . . Not Available [address], [address], 09/11/2023 12:06:59 09/07/19 24 09/11/2023 IGP, RFX [...] repor ts do occur . Not Available [address], [address], 09/11/2023 12:06:59 09/07/19 24 09/11/2023 IGP, RFX APTIM A HPV ASCU test methodology: Zaira manning This liqui d based ThinP rep(R ) pap test was scree ulises with the use of an image guide rupal armijo. Not Available [address], [address], 09/11/2023 12:06:59 09/07/19 24 09/11/2023 IGP, RFX APTIM A HPV ASCU . Commen t The HPV DNA refle x crite tanika were not met with this speci men resul t there fore, no HPV testi ng was perfo rmed. Not Available [address] [place], [address], 09/11/2023 12:06:59 09/07/19 24 09/07/2023 hemog lobin , gastr ointe mariano l, stool Occult Blood negati ve Not Available In-Office Order Internal Use Only DO Not Attach Compendium DO Not Attach Compendium, Do Not Delete/merge, [id number] 09/07/2023 11:08:14 09/08/19 24 09/09/2023 ESTRA DIOL estradiol 63.1 pg/mL Adult Femal e Range Folli cular phase 12.5 - 166.0 Ovula tion phase 85.8 - 498.0 Lutea l phase 43.8 - 211.0 Postm enopa usal <6.0 - 54.7 Pregn delilah 1st trime ster 215.0 - >4300 .0 Amor ECLIA metho dolog y Not Available [facility] ([facility]) [address] [facility], [place], [address], 09/09/2023 10:06:38 09/08/19 24 09/09/2023 FSH FSH 41.7 mIU/m L Adult Femal e Range Folli cular phase 3.5 - 12.5 Ovula tion phase 4.7 - 21.5 Lutea l phase 1.7 - 7.7 Postm enopa usal 25.8 - 134.8 Not Available [facility] ([facility]) [address] [facility], [place], [address], 09/09/2023 10:06:40 10/14/19 24 10/15/2023 CANCE R ANTIG EN (CA) 125 cancer antigen (Ca) 125 13.1 U/mL 0.0-38 .1 Amor Diagn ostic s Elect amor milum inesc ence Immun oassa y (ECLI A) Value s obtai ulises with diffe rent assay metho ds or kits canno t be used inter [facility] . Resul ts canno t be inter prete d as absol merary evide nce of the prese nce or absen ce of jennifer neumann se. Not Available [facility] ([facility]) [address] [facility], [place], [address], 10/15/2023 08:09:05 10/14/19 24 10/15/2023 ESTRA DIOL estradiol 60.1 pg/mL Adult Femal e Range Folli cular phase 12.5 - 166.0 Ovula tion phase 85.8 - 498.0 Lutea l phase 43.8 - 211.0 Postm enopa usal <6.0 - 54.7 Pregn delilah 1st trime ster 215.0 - >4300 .0 Amor ECLIA metho dolog y Not Available [facility] ([facility]) [address] [facility], [place], [address], 10/15/2023 08:09:06 10/14/19 24 10/15/2023 ANTI- MULLE [...] or kits canno t be used inter [facility] . Age-d epend ent refer ence inter [...] Sarah napol is, [place]. Not Available [facility] ([facility]) [address] [facility], [place], [address], 10/15/2023 08:09:07 10/14/19 24 10/20/2023 INHIB IN [...] or kits canno t be used inter [facility] . Not Available [facility] ([facility]) [address] [facility], [place], [address], 10/22/2023 16:06:44 10/14/19 24 10/22/2023 INHIB IN [...] or kits canno t be used inter [facility] . Not Available [facility] ([facility]) [address] [facility], [place], [address], 10/22/2023 16:06:44 10/20/19 24 10/20/2023 [facility] [...] d out by: Vinnie Holland M.D. / [facility] Clini tha Histo ry: 53-ye ar-ol [...] Avenu e, [place] (CLIA #[id number]). Its perfo rmanc e joshua cteri stics deter mined by [facility]. Bladimir Holder M.D. Medic al Direc tor of Surgi tha Robson Burt M.D. Medic al Direc tor Cytop athol ogy Phone #: [phone], On-Ca ll Patho logis t: [id number] Not Available [facility] (Centralized Electronic Ordering - All Locations) Patient Can Go To The Location Of Their Choice, [id number] 10/26/2023 14:23:54 10/20/19 24 10/20/2023 pregn delilah test, urine HCG negati ve Not Available In-Office Order Internal Use Only DO Not Attach Compendium DO Not Attach Compendium, Do Not Delete/merge, [id number] 10/20/2023 09:56:02 10/06/19 24 10/05/2023 US, pelvi s, trans abdom inal + trans vagin al No observ ation record ed. [email or web address] Not Available 2023 08:52:43 10/30/19 24 10/29/2023 MRI, pelvi s, w/ contr ast No observ ation record ed. sharad Valera Mri [address] [place], [address], 11/04/2023 10:15:35 Result Notes None recorded. Problems Name Problem SNOMED Code Status Onset Date Resolution Date Notes Provider Name and Address Organization Details Recorded Time Mass of right ovary 1561893251729 9102 Active 2023 Roslyn Brandon MD [address] [facility],[address], [place], [address], [place] - [facility], 4 11:14:14 Dyspareunia 05467403 Active 2023 Roslyn Brandon MD [address], [place], [address], [place] [facility], 4 11:14:26 Backache 035648465 Active 2023 Roslyn Brandon MD [address] [facility],[address], [place], [address], [place] [facility], 4 11:14:33 Genuine stress incontinenc e 41512304 Active 2023 Roslyn Brandon MD [address] [facility],[address], [place], [address], [place] [facility], 4 11:14:41 Problem Notes None recorded. Procedures Surgical History Date Name Laterality Status Provider Name and Address Organization Details Recorded Time 03/24/20 24 laparoscopic hysterectomy completed Roslyn Brandon MD [address], [place], [address], [place] - [facility], 06/22/2024 08:18:33 10/20/19 24 Endometrial Biopsy completed Roslyn Brandon MD [address], [place], [address], [place] [facility], 10/20/2023 09:55:35 Removal of thyroid completed ca Pandey in [facility], 09/07/2023 11:18:19 cone biopsy completed Roslyn Brandon MD [address], [place], [address], [place] [facility], 09/07/2023 13:33:08 Imaging Results None recorded. Procedure [...] Updated DateTime 4 160.02 cm 29.4 kg/m2 60898.0 5 g 98 [degF] 88 /min 160/74 mm[Hg] ca Yusuf [facility], 4 11:09:21 Date Recorded Body height Provider Name an d Address Organization Details Last Updated DateTime 09/15/2023 160.02 cm Flor arizmendi in [facility], 09/15/2023 09:49:48 Date Recorded Body height Body mass index (BMI) Body weight Body temperature Heart rate Systolic And Diastolic Provider Name and Address Organization Details Last Updated DateTime 160.02 cm 29.3 kg/m2 49526.4 6 g 97.1 [degF] 95 /min 170/77 mm[Hg] Flor Pandey in [facility], 08:00:59 Date Recorded Body height Body mass index (BMI) Body weight Heart rate Body temperature Systolic And Diastolic Provider Name and Address Organization Details Last Updated DateTime 160.02 cm 29.2 kg/m2 16568.3 g 84 /min 97.2 [degF] 147/71 mm[Hg] Flor Pandey in [facility], 09:06:06 Date Recorded Body height Body mass index (BMI) Body weight Heart rate Systolic And Diastolic Provider Name and Address Organization Details Last Updated DateTime 11/04/2023 160.02 cm 29.1 kg/m2 04475.15 g 79 /min 151/71 mm[Hg] ca Pandey in [facility], 11/04/2023 09:29:36 Social History Question Answer Notes LastModified by Organizat ion Details LastModified Time Tobacco Smoking Status Former Smoker MICKEY flores in [facility], 09/07/2023 11:16:21 How Many Years Have You [...] Or The Highest Degree You Have Received? [id number] Information not available 09/07/2023 Who Is Your Employer? [employer] Information not available 09/07/2023 Are There [...] anxious, or unable to sleep at night)? [id number] Information not available 09/07/2023 Family History Relationship [...] Problems N Kidney or Bladder Problems N Depression N GI Problems N Lung Disease N Defects or Inherited Disease N Anemia N History of Ovarian Cancer N History of Breast Cancer N RANDAL exposure N BRCA testing in past N Osteopenia N Psychiatric Illness N Diabetes N Anxiety Disorder N Arthritis Y Headaches or Migraines N [...] ICD10 Code Diagnosis IMO Codes Diagnosis Note [id number] MD ROSLYN Mitchell MD [address] [place] [address] 09/07/2023 11:02:41 09/07/2023 14:20:33 Specialized medical examination 47377427 Z01.419 Screening for malignant neoplasm of rectum 330742928 Z12.12 Screening mammography 24 765349 Z12.31 Postmenopa usal bleeding 46075111 N95.0 130301 MD ROSLYN Mitchell MD [address] [place] [address] 09/15/2023 09:36:13 09/15/2023 15:31:58 [id number] MD ROSLYN Mitchell MD [address] [place] [address] 10/13/2023 07:57:51 10/13/2023 10:20:35 Mass of right ovary 7463217976 3101551 R19.09 Postmenopa usal bleeding 44064017 N95.0 Endometrium thickened 44 9545268 R93.89 [id number] MD ROSLYN Mitchell MD [address] [facility] [place] [address] 10/20/2023 08:58:42 10/20/2023 12:04:56 Postmenopausal bleeding 11473953 N95.0 [id number] MD ROSLYN Mitchell MD [address] [facility] [place] [address] 11/04/2023 09:24:21 11/04/2023 11:55:47 Mass of right ovary 5529278325 5945013 R19.09 Dyspareunia 89320284 N94 [address] ress incontinence 19265237 N39.3 Backache 888008174 M54.9 Health Concerns Section Related Observation LastModified by Organization Detai ls LastModified Time None Recorded Concern Status LastModified by Organization Details LastModified Time None Recorded Advance Directives Directive None Recorded Payers Insurance Date Sequence Insurance Name Policy Number Policy Carrera Covered Member ID Carrera Member ID Guarantor Name 12/03/2023 1 [facility] [place] [place] Aide Luna [id number] Aide Luna Notes Date Note Type Note Provider Name and Address Organization Details Recorded Time 09/07/2023 text/html She is here as a new patient for routine annual. 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 She had her last menses more than 2 years ago, however last week she began moderately red vaginal bleeding that lasted 7 days, now resolved. 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 with Dr. Pham. Roslyn Brandon MD [address] [facility],[address], [place], [address], [place] - [facility], 09/07/2023 13:53:23 10/13/2023 text/html She is [...] routine annual. She has not had a internal combustion engine subassembler exam in many, many years .She had [...] she is interested. Roslyn Brandon MD [address] [facility],[address], [place], [address], [place] - [facility], 10/13/2023 09:07:11 10/20/2023 text/html She is [...] routine annual. She has not had a internal combustion engine subassembler exam in many, many years .She had [...] she is interested. Roslyn Brandon MD [address] [facility],[address], [place], [address], [place] - [facility], [...] routine annual. She has not had a internal combustion engine subassembler exam in many, many years .She had [...] she is interested. Roslyn Brandon MD [address] [facility],[address] [address], [place] [facility], 11/04/2023 11:19:23 OBGyn Episode No OBEpisode recorded.
[2025-04-29 11:21] LABS: MANUAL DIFF FLAG NO
[2025-04-29 11:46] LABS: Hematocrit 42.2 % (37.0-47.0); Hemoglobin 13.9 g/dl (12.0-16.0); Imm Gran Abs Auto 0.03 X10*3/uL (0.00-0.03); Imm Gran Pct Auto 0.5 % (0.0-0.4); Lymphocytes Absolute Auto 2.4 X10*3/uL (1.2-4.9); Mean Corpuscular HGB Conc 32.9 g/dl (31.0-35.0); Mean Corpuscular Hemoglobin 29.6 pg (27.0-33.0); Mean Corpuscular Volume 89.8 fL (80.0-98.0); NRBC Abs Auto 0.000 X10*3/uL (0.0-0.012); NRBC Pct Auto 0.0 /100WBC (0.0-0.2); Platelet Count 281 X10*3/uL (160-400); Red Blood Count 4.70 X10*6/uL (4.20-5.50); White Blood Count 6.3 X10*3/uL (4.8-10.8)
[2025-04-29 12:20] LABS: Alanine Aminotransferase 39 U/L (0-31); Albumin Level 4.9 g/dL (3.5-5.0); Alkaline Phosphatase 107 U/L (39-117); Anion Gap 13 (12-20); Aspartate Amino Transferase 22 U/L (5-31); Blood Urea Nitrogen 14 mg/dL (9-16); Calcium 10.7 mg/dL (8.4-10.2); Carbon Dioxide 25 mmol/L (22-29); Chloride 110 mmol/L (96-108); Estimated Glomerular Filt Rate > 60; Potassium 4.4 mmol/L (3.3-5.1); Sodium 144 mmol/L (135-145); Total Protein 8.0 g/dL (6.5-8.0)
[2025-04-29 12:27] LABS: Erythrocyte Sedimentation Rate 15 MM/HR (0-20)
[2025-05-03 08:33] LABS: Transglutaminase Ab IgG <1.0 U/mL
== END 2025-04-29 10:54 | disposition home or self-care (01) ==
LOC: HO.LAB 10:53
PROVIDERS: Absent Provider Student in an Organized Health Care Education/Training Program; PCP Internal Medicine; Visit Provider Nurse Practitioner
DX: R19.7 Diarrhea, unspecified (principal); Z79.899 Other long term (current) drug therapy
CPT/HCPCS: 36415; 80053; 85025; 85652; 86140; 86364

== ENCOUNTER 2025-05-16 09:36 | Outpatient (REF) | payer BC, SELFPAY ==
--- NOTE | ~2025-05-16 | FL_ITS ---
EXAMINATION: XR BARIUM SWALLOW CLINICAL INFORMATION: Gastroesophageal reflux disease COMPARISON: None available. TECHNIQUE: Study performed with thick and thin barium, effervescent granules. FINDINGS: Normal swallowing mechanism. No evidence of tracheal penetration or aspiration. Esophagus demonstrates normal distention and motility. No evidence of stricture, mass or mucosal lesion. Small sliding hiatal hernia. No reflux is seen during the course of the procedure. Patient swallowed a barium tablet, which demonstrated normal passage to the stomach. FLUOROSCOPY TIME: 34 seconds DOSE AREA PRODUCT: 79 uGy-m2 (microgray-meter squared) FL/FL barium swallow IMPRESSION: Small sliding hiatal hernia. Electronically signed by: Maurilio Peralta MD 05/16/2025 04:32 PM EST
--- OUTSIDE RECORDS SUMMARY | 2025-05-16 10:24 | XMS_ITS | Data Portability ---
Author Organization [place] - [facility],, ROSLYN BRANDON MD Address [address] [address] Care Team Providers Care Director Motion Picture Name Role Phone MORELIA JOHN Primary Care Provider Assessment No assessment recorded. Plan of Treatment Reminders Order Date Submit Date Provider Last Modified By Organization Details Last Modified Time Details Appointments None recorded. Lab biopsy, endometria l 2023 024 [email or web address] [facility] (Centralized Electronic Ordering - All Locations), Patient Can Go To The Location Of Their Choice, [id number] 4 07:34:58 test, urine 2023 024 [email or web address] 1 In-Office Order, Internal Use Only DO Not Attach Compendium DO Not Attach Compendium, Do Not Delete/merge, [id number] 4 09:56:11 ca 125, serum 2023 024 [...] Go To The Location Of Their Choice, [id number] 4 16:06:44 cytology report, thin prep, smear or scraping, cervical or vaginal 2023 024 ALAN [facility] (Centralized Electronic Ordering - All Locations), Patient Can Go To The Location Of Their Choice, [id number] 4 12:07:00 estradiol, serum 2023 024 ALAN [facility] (Centralized Electronic Ordering - All Locations), Patient Can Go To The Location Of Their Choice, [id number] 4 10:06:38 FSH (follicle- stimulatin g hormone), serum 2023 024 ALAN [facility] (Centralized Electronic Ordering - All Locations), Patient Can Go To The Location Of Their Choice, [id number] 4 10:06:40 hemoglobin , gastrointe stinal, stool 2023 024 [email or web address] 1 In-Office Order, Internal Use Only DO Not Attach Compendium DO Not Attach Compendium, Do Not Delete/merge, [id number] 13:33:18 Referral gynecologi c surgery referral - 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 Imaging MRI, pelvis, w/ contrast - hypoechoic enlargemen t of right ovary, question possible fibroma, also has post menopausal bleeding and thickened endometriu m 2023 024 [email or web address] ([facility]), [address], [place], [address], 4 07:35:14 MAMMO, screening, digital, bilateral - Breast Aspiration and/or Biopsy if needed 2023 024 [email or web address] [facility], [address], [address], [place], [address], 5 07:19:33 Medication Orders None recorded. Patient TargetsNo targets recorded. Patient Instructions Encounter Date Encounter Id Patient Instructions Last Modified By Organization Details Last Modified Time 09/07/2023 [id number] learning about healthy weight Not available 09/07/2023 13:13:23 vaginal bleeding after menopause: care instructions Not available 09/07/2023 13:13:40 She is here as a new patient for routine annual. She has not had a corsetier exam in many, many years . She [...] the breast. Not available 09/07/2023 13:53:01 10/13/2023 [id number] vaginal bleeding after menopause: care instructions Not [...] routine annual. She has not had a corsetier exam in many, many years . She [...] if so should she see a regular corsetier, or a corsetier onc. Face to face discussion 30 minutes Not available 10/13/2023 08:39:44 10/20/2023 [id number] postmenopausal bleeding information Not available 10/20/2023 09:54:56 [...] routine annual. She has not had a corsetier exam in many, many years . She [...] if stable. Not available 10/20/2023 09:54:55 11/04/2023 [id number] back pain: care instructions laura Not available [...] routine annual. She has not had a corsetier exam in many, many years . She [...] REPAI R ARE PRESE NT. Not Available [address], [address], 09/11/2023 12:06:59 09/07/19 24 09/11/2023 IGP, RFX APTIM A HPV ASCU specimen adequacy: Commen t Satis facto ry for evalu ation . Endoc ervic al and/o r squam ous metap lasti c cells (endo cervi tha compo nent) are prese nt. Not Available [address], [address], 09/11/2023 12:06:59 09/07/19 24 09/11/2023 IGP, RFX APTIM A HPV ASCU clinician provided ICD10: Zaira t Z01.4 19 N95.0 Not Available [address], [address], 09/11/2023 12:06:59 09/07/19 24 09/11/2023 IGP, RFX APTIM A HPV ASCU performed by: Zaira Hooper il, Cytot echno logis t (ASCP ) Not Available [address], [address], 09/11/2023 12:06:59 09/07/19 24 09/11/2023 IGP, RFX APTIM A HPV ASCU electronical ly signed by: Zaira rios MD, Patho logis t Not Available [address], [address], 09/11/2023 12:06:59 09/07/19 24 09/11/2023 IGP, RFX APTIM A HPV ASCU . . Not Available [address], [address], 09/11/2023 12:06:59 09/07/19 24 09/11/2023 IGP, RFX [...] repor ts do occur . Not Available [address], [address], 09/11/2023 12:06:59 09/07/19 24 09/11/2023 IGP, RFX APTIM A HPV ASCU test methodology: Zaira manning This liqui d based ThinP rep(R ) pap test was scree ulises with the use of an image guide rupal armijo. Not Available [address], [address], 09/11/2023 12:06:59 09/07/19 24 09/11/2023 IGP, RFX APTIM A HPV ASCU . Commen t The HPV DNA refle x crite tanika were not met with this speci men resul t there fore, no HPV testi ng was perfo rmed. Not Available [address] [place], [address], 09/11/2023 12:06:59 09/07/19 24 09/07/2023 hemog lobin , gastr ointe mariano l, stool Occult Blood negati ve Not Available In-Office Order Internal Use Only DO Not Attach Compendium DO Not Attach Compendium, Do Not Delete/merge, [id number] 09/07/2023 11:08:14 09/08/19 24 09/09/2023 ESTRA DIOL estradiol 63.1 pg/mL Adult Femal e Range Folli cular phase 12.5 - 166.0 Ovula tion phase 85.8 - 498.0 Lutea l phase 43.8 - 211.0 Postm enopa usal <6.0 - 54.7 Pregn delilah 1st trime ster 215.0 - >4300 .0 Amor ECLIA metho dolog y Not Available [facility] ([facility]) [address] [facility], [place], [address], 09/09/2023 10:06:38 09/08/19 24 09/09/2023 FSH FSH 41.7 mIU/m L Adult Femal e Range Folli cular phase 3.5 - 12.5 Ovula tion phase 4.7 - 21.5 Lutea l phase 1.7 - 7.7 Postm enopa usal 25.8 - 134.8 Not Available [facility] ([facility]) [address] [facility], [place], [address], 09/09/2023 10:06:40 10/14/19 24 10/15/2023 CANCE R ANTIG EN (CA) 125 cancer antigen (Ca) 125 13.1 U/mL 0.0-38 .1 Amor Diagn ostic s Elect amor milum inesc ence Immun oassa y (ECLI A) Value s obtai ulises with diffe rent assay metho ds or kits canno t be used inter [facility] eably . Resul ts canno t be inter prete d as absol merary evide nce of the prese nce or absen ce of jennifer neumann se. Not Available [facility] ([facility]) [address] [facility], [place], [address], 10/15/2023 08:09:05 10/14/19 24 10/15/2023 ESTRA DIOL estradiol 60.1 pg/mL Adult Femal e Range Folli cular phase 12.5 - 166.0 Ovula tion phase 85.8 - 498.0 Lutea l phase 43.8 - 211.0 Postm enopa usal <6.0 - 54.7 Pregn delilah 1st trime ster 215.0 - >4300 .0 Amor ECLIA metho dolog y Not Available [facility] ([facility]) [address] [facility], [place], [address], 10/15/2023 08:09:06 10/14/19 24 10/15/2023 ANTI- MULLE [...] or kits canno t be used inter [facility] . Age-d epend ent refer ence inter [...] Sarah napol is, [place]. Not Available [facility] ([facility]) [address] [facility], [place], [address], 10/15/2023 08:09:07 10/14/19 24 10/20/2023 INHIB IN [...] or kits canno t be used inter [facility] . Not Available [facility] ([facility]) [address] [facility], [place], [address], 10/22/2023 16:06:44 10/14/19 24 10/22/2023 INHIB IN [...] or kits canno t be used inter [facility] . Not Available [facility] ([facility]) [address] [facility], [place], [address], 10/22/2023 16:06:44 10/20/19 24 10/20/2023 [facility] [...] by: Vinnie Holland M.D. / [facility] Clini tha Histo ry: 53-ye ar-ol [...] [address]ven[address] e, [place] (CLIA #[id number]). Its perfo rmanc e joshua cteri stics deter mined by [facility]. Bladimir Holder M.D. Medic al Direc tor of Surgi tha Robson Burt M.D. Medic al Direc tor Cytop athol ogy Phone #: [phone], On-Ca ll Patho logis t: [id number] Not Available [facility] (Centralized Electronic Ordering - All Locations) Patient Can Go To The Location Of Their Choice, [id number] 10/26/2023 14:23:54 10/20/19 24 10/20/2023 pregn delilah test, urine HCG negati ve Not Available In-Office Order Internal Use Only DO Not Attach Compendium DO Not Attach Compendium, Do Not Delete/merge, [id number] 10/20/2023 09:56:02 10/06/19 24 10/05/2023 US, pelvi s, trans abdom inal + trans vagin al No observ ation record ed. [email or web address] Not Available 2023 08:52:43 10/30/19 24 10/29/2023 MRI, pelvi s, w/ contr ast No observ ation record ed. sharad Madison Mri [address] [place], [address], 11/04/2023 10:15:35 Result Notes None recorded. Problems Name Problem SNOMED Code Status Onset Date Resolution Date Notes Provider Name and Address Organization Details Recorded Time Mass of right ovary 5978886286563 9102 Active 2023 Roslyn Brandon MD [address] [facility],[address], [place], [address], [place] - [facility], 4 11:14:14 Dyspareunia 13710228 Active 2023 Roslyn Brandon MD [address], [place], [address], [place] [facility], 4 11:14:26 Backache 393544518 Active 2023 Roslyn Brandon MD [address] [facility],[address], [place], [address], [place] [facility], 4 11:14:33 Genuine stress incontinenc e 37994815 Active 2023 Roslyn Brandon MD [address] [facility],[address], [place], [address], [place] [facility], 4 11:14:41 Problem Notes None recorded. Procedures Surgical History Date Name Laterality Status Provider Name and Address Organization Details Recorded Time 03/24/20 24 laparoscopic hysterectomy completed Roslyn Brandon MD [address], [place], [address], [place] - [facility], 06/22/2024 08:18:33 10/20/19 24 Endometrial Biopsy completed Roslyn Brandon MD [address], [place], [address], [place] - [facility], 10/20/2023 09:55:35 Removal of thyroid completed ca Pandey in [facility], 09/07/2023 11:18:19 cone biopsy completed Roslyn Brandon MD [address], [place], [address], [place] [facility], 09/07/2023 13:33:08 Imaging Results None recorded. [...] Updated DateTime 4 160.02 cm 29.4 kg/m2 52991.0 5 g 98 [degF] 88 /min 160/74 mm[Hg] ca Yusuf [facility], 4 11:09:21 Date Recorded Body height Provider Name an d Address Organization Details Last Updated DateTime 09/15/2023 160.02 cm Flor arizmendi in [facility], 09/15/2023 09:49:48 Date Recorded Body height Body mass index (BMI) Body weight Body temperature Heart rate Systolic And Diastolic Provider Name and Address Organization Details Last Updated DateTime 160.02 cm 29.3 kg/m2 01936.4 6 g 97.1 [degF] 95 /min 170/77 mm[Hg] Flor Pandey in [facility], 08:00:59 Date Recorded Body height Body mass index (BMI) Body weight Heart rate Body temperature Systolic And Diastolic Provider Name and Address Organization Details Last Updated DateTime 160.02 cm 29.2 kg/m2 58413.3 g 84 /min 97.2 [degF] 147/71 mm[Hg] Flor Pandey in [facility], 09:06:06 Date Recorded Body height Body mass index (BMI) Body weight Heart rate Systolic And Diastolic Provider Name and Address Organization Details Last Updated DateTime 11/04/2023 160.02 cm 29.1 kg/m2 54882.15 g 79 /min 151/71 mm[Hg] ca Pandey in [facility], 11/04/2023 09:29:36 Social History Question Answer Notes LastModified by Organizat ion Details LastModified Time Tobacco Smoking Status Former Smoker MICKEY flores in [facility], 09/07/2023 11:16:21 How Many Years Have [...] Or The Highest Degree You Have Received? [id number] Information not available 09/07/2023 Who Is Your Employer? [employer] Information not available 09/07/2023 Are There [...] anxious, or unable to sleep at night)? [id number] Information not available 09/07/2023 Family History Relationship [...] ICD10 Code Diagnosis IMO Codes Diagnosis Note [id number] MD ROSLYN Mitchell MD [address] [employer],[address] [place] [address] 09/07/2023 11:02:41 09/07/2023 14:20:33 Specialized medical examination 26327500 Z01.419 Screening for malignant neoplasm of rectum 514872828 Z12.12 Screening mammography 24 055586 Z12.31 Postmenopa usal bleeding 03782791 N95.0 [id number] MD ROSLYN Mitchell MD [address] [employer],[address] [place] [address] 09/15/2023 09:36:13 09/15/2023 15:31:58 [id number] MD ROSLYN Mitchell MD [address] [place] [address] 10/13/2023 07:57:51 10/13/2023 10:20:35 Mass of right ovary 0137544380 5252713 R19.09 Postmenopa usal bleeding 40971043 N95.0 Endometrium thickened 44 0270999 R93.89 [id number] MD ROSLYN Mitchell MD [address] [facility],[address] [place] [address] 10/20/2023 08:58:42 10/20/2023 12:04:56 Postmenopausal bleeding 06973412 N95.0 [id number] MD ROSLYN Mitchell MD [address] [facility],[address] [place] [address] 11/04/2023 09:24:21 11/04/2023 11:55:47 Mass of right ovary 7839110455 2067431 R19.09 Dyspareunia 85926739 N94 .[address] ress incontinence 79625394 N39.3 Backache 165017744 M54.9 Health Concerns Section Related Observation LastModified by Organization Detai ls LastModified Time None Recorded Concern Status LastModified by Organization Details LastModified Time None Recorded Advance Directives Directive None Recorded Payers Insurance Date Sequence Insurance Name Policy Number Policy Carrera Covered Member ID Carrera Member ID Guarantor Name 12/03/2023 1 [facility] Aide Luna [id number] Aide Luna Notes Date Note Type Note Provider Name and Address Organization Details Recorded Time 09/07/2023 text/html She is here as a new patient for routine annual. She has not had a corsetier exam in many, many years . She had her last menses more than 2 years ago, however last week she began moderately red vaginal bleeding that lasted 7 days, now resolved. 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 with Dr. Pham. Roslyn Brandon MD [address] [facility],[address], [place], [address], [place] - [facility], 09/07/2023 13:53:23 10/13/2023 text/html She is here [...] routine annual. She has not had a corsetier exam in many, many years .She had [...] [facility],[address], [place], [address], [place] - [facility], 10/13/2023 09:07:11 10/20/2023 text/html She is here [...] routine annual. She has not had a corsetier exam in many, many years .She had [...] MD [address] [facility],[address], [place], [address], [place] [facility], [...] routine annual. She has not had a corsetier exam in many, many years .She had [...] telehealth for this if she is interested. Roslny Brandon MD [address] [facility],[address], [facility] [address], [place] [facility], 11/04/2023 11:19:23 OBGyn Episode No OBEpisode recorded.
== END 2025-05-16 09:37 ==
LOC: HO.XRAY 09:36
PROVIDERS: PCP Internal Medicine; Visit Provider Nurse Practitioner
DX: K21.9 Gastro-esophageal reflux disease without esophagitis (principal)
CPT/HCPCS: 74220

== ENCOUNTER → 2025-05-16 09:37 | Outpatient (BNV) | payer BC, SELFPAY | PROVIDERS: PCP Internal Medicine; Visit Provider Radiology Diagnostic Ultrasound | DX: K21.9 Gastro-esophageal reflux disease without esophagitis (principal); K44.9 Diaphragmatic hernia without obstruction or gangrene; G21.9 Secondary parkinsonism, unspecified | CPT/HCPCS: 74221 ==